=== PATIENT | female | born 2000 | race Caucasian/White ===

== ENCOUNTER 2021-04-30 13:32 | Emergency (ER) | payer OTHER, SELFPAY ==
[2021-04-30 13:44] VITALS: BP 113/74; PULSE 81; RESP 18; TEMP 36.9; O2SAT 99
--- NOTE | 2021-04-30 14:32 | ED.URI ---
HPI - URI/Sore Throat General Chief Complaint: Upper Respiratory Infection Stated Complaint: Congestion, Sinus pressure, Coughing, Sore Throat Time Seen by Provider: 04/30/21 14:33 Source: patient and RN notes reviewed Mode of arrival: ambulatory Limitations: no limitations History of Present Illness HPI Narrative: 20 year old female who presents to [facility] care with complaints of one week duration of productive cough of green mucous, post nasal drainage, left ear pain,head pressure, pain to teeth. Patient has been taking Mucinex,Sudafed, and Nyquil for her symptoms.Patient states that she had a sore throat for one day then it was gone. Patient denies any shortness of breath with respirations even and nonlabored with SAO2 99% on room air.Patient states that she has not had flu or Covid immunizations. MD elicited complaint: cough Onset (ago): week(s) (1) Consistency: progressively worsening Severity: moderate Pain scale (0-10): 6 Description of mucous: green Able to tolerate fluids by mouth: Yes Relieving factors: nothing Treatments prior to arrival: cold medicine and other (Mucinex, Sudafed,Nyquil) Related Data Home Medications Medication Instructions Recorded Confirmed hydroxyzine pamoate 25 mg PO BID PRN 04/30/21 04/30/21 norethindrone-e.estradiol-iron 1 tablet PO DAILY 04/30/21 04/30/21 [11/22 ()] Allergies Allergy/AdvReac Type Severity Reaction Status Date / Time ketorolac [From Toradol] Allergy Nausea and Verified 04/30/21 13:51 Vomiting Review of Systems Review of Systems: Narrative: CONSTITUTIONAL: Denies known fever, chills, or sweats. EYES: Denies visual changes, redness, or discharge. ENT: Positive for post nasal rhinorrhea, congestion,no resent sore throat, positive left ear otalgia. CARDIOVASCULAR: Denies chest pain, palpitations, no edema. RESPIRATORY: Positive cough denies dyspnea. GASTROINTESTINAL: Denies abdominal pain, nausea, vomiting, or diarrhea. GENITOURINARY: Denies dysuria or hematuria. SKIN: Denies rash or itching. MUSCULOSKELETAL: Denies back pain, joint pain, or myalgia. NEUROLOGIC:positive frontal headache, no numbness, or weakness. PSYCHIATRIC: Positive for history of anxiety or depression. All systems reviewed & are unremarkable except as noted in HPI and below PMFSH Past Medical History Medical History (Updated 05/04/21 @ 09:14 by Mehreen Chandler NP) Anxiety GERD (gastroesophageal reflux disease) IBS (irritable bowel syndrome) Surgical History Surgical History (Updated 05/04/21 @ 09:15 by Mehreen Chandler NP) H/O shoulder surgery History of dental surgery History of placement of ear tubes Family History Family History (Updated 05/04/21 @ 09:15 by Mehreen Chandler NP) Other No significant family history Social History Social History (Updated 05/04/21 @ 09:16 by Mehreen Chandler NP) Tobacco type: e-cigarettes/vaping Alcohol intake: current Alcohol use details: social Substance use: never Living arrangements: with family Gender identity (if verbalized by the patient): Female Comments At time of signature, agree with nursing past medical, surgical, social and family history. There is no relevant family history pertinent to the presenting complaint Exam Narrative: Exam Narrative: GENERAL: Well-appearing, well-nourished, and in no acute distress. HEAD: Normocephalic, atraumatic. EYES: PERRLA and EOMI. ENT: Nares red swollen with swollen turbinates, rhinorrhea no epistaxis.Facial pressure and frontal headache pain. Mucous membranes moist.TM's normal with dull light reflex, throat red with no tonsil enlargement exudates or lesions, post nasal drainage present NECK: Supple.no lymphadenopathy CHEST: Clear to auscultation. No respiratory distress.productive cough of green sputum, SAO2 99% on room air HEART: Regular rate and rhythm. No murmur heard. Normal peripheral pulses. ABDOMEN: Soft, nontender, nondistended, normal active rachel
== END 2021-04-30 14:50 | disposition home or self-care (01) ==
PROVIDERS: Emergency Provider Registered Nurse; PCP Physician Assistant
DX: J01.90 Acute sinusitis, unspecified (principal); F17.200 Nicotine dependence, unspecified, uncomplicated; K21.9 Gastro-esophageal reflux disease without esophagitis
CPT/HCPCS: 99213; G0463

== ENCOUNTER 2021-07-04 14:53 | Emergency (ER) | payer OTHER, SELFPAY ==
--- NOTE | 2021-07-04 14:58 | ED.URI ---
HPI - URI/Sore Throat General Chief Complaint: Upper Respiratory Infection Stated Complaint: sinus infection Time Seen by Provider: 07/04/21 15:20 Source: patient and RN notes reviewed Mode of arrival: ambulatory Limitations: no limitations History of Present Illness HPI Narrative: 21-year-old female with history of IBS, GERD, tympanostomy tubes presents with concern for 4-day history of sneezing cough, headache, runny nose, nasal congestion, sore throat, itchy right ear. She denies any [id number] mention. Denies known sick contacts. Has not been vaccinated. She denies shortness of breath, body aches, chills, sweats MD elicited complaint: nasal congestion Related Data Home Medications Medication Instructions Recorded Confirmed hydroxyzine pamoate 25 mg PO BID PRN 04/30/21 07/04/21 norethindrone-e.estradiol-iron 1 tablet PO DAILY 04/30/21 07/04/21 [11/22 (28)] omeprazole 10 mg PO DAILY 07/04/21 07/04/21 Allergies Allergy/AdvReac Type Severity Reaction Status Date / Time ketorolac [From Toradol] Allergy Nausea and Verified 07/04/21 15:09 Vomiting Review of Systems Review of Systems: CONSTITUTIONAL: Denies malaise, chills, sweats, or fever. EYES: Denies visual changes, redness, or discharge. ENT: Reports rhinorrhea, congestion, otalgia and sore throat. CARDIOVASCULAR: Denies chest pain, palpitations, or edema. RESPIRATORY: Reports cough. Denies dyspnea. GASTROINTESTINAL: Denies abdominal pain, nausea, vomiting, diarrhea SKIN: Denies rash or itching. MUSCULOSKELETAL: Denies myalgia. NEUROLOGIC: Denies headache. All systems reviewed & are unremarkable except as noted in HPI and below PMFSH Past Medical History Medical History (Updated 07/04/21 @ 15:26 by Vania Walters NP) Anxiety GERD (gastroesophageal reflux disease) IBS (irritable bowel syndrome) Surgical History Surgical History (Updated 05/04/21 @ 09:15 by Mehreen Chandler NP) H/O shoulder surgery History of dental surgery History of placement of ear tubes Family History Family History (Updated 05/04/21 @ 09:15 by Mehreen Chandler NP) Other No significant family history Social History Social History (Updated 05/04/21 @ 09:16 by Mehreen Chandler NP) Tobacco type: e-cigarettes/vaping Alcohol intake: current Alcohol use details: social Substance use: never Gender identity (if verbalized by the patient): Female Comments At time of signature, agree with nursing past medical, surgical, social and family history. There is no relevant family history pertinent to the presenting complaint Exam Narrative: GENERAL: Well-appearing, well-nourished, and in no acute distress. HEAD: Normocephalic EYES: PERRLA, conjunctivae clear ENT: Nares clear, clear discharge. Mucous membranes moist. TM pearly encinas with sharp light reflex bilaterally; no tragal tenderness. Oropharynx not erythematous without lesions. Tonsils not enlarged and without exudate, no drooling, no hoarseness, no trismus, uvula midline. NECK: Supple. No lymphadenopathy CHEST: Clear to auscultation, breath sounds equal. No wheezing, rhonchi, rales, or stridor. No respiratory distress, speaks in full sentences. HEART: Regular rate and rhythm. No murmur heard. SKIN: Warm, dry, no rash. NEURO: Alert and oriented x3. PSYCH: Normal mood and affect Course Course Emergency Course: Patient is aware of diagnosis, understands and agrees to treatment plan. Anticipatory guidance given. Patient agrees to follow-up as directed and is aware of reasons to seek care at the emergency department. Portions of this record may have been created with voice recognition software Vital Signs Vital signs: Reviewed. MDM - URI/Sore Throat MDM Narrative Medical decision making narrative: Differential diagnosis considered: Diego virus, strep pharyngitis, allergic rhinitis, upper respiratory tract infection, sinusitis, rhinosinusitis, nasopharyngitis. viral pharyngitis, otiti
[2021-07-04 14:59] VITALS: BP 118/77; PULSE 82; RESP 16; TEMP 36.6; O2SAT 98
[2021-07-04 15:10] VITALS: BP 118/77; PULSE 82; RESP 16; TEMP 36.6; O2SAT 98
[2021-07-05 19:18] LABS: SARS-CoV-2 RNA PCR Negative
== END 2021-07-04 15:39 | disposition home or self-care (01) ==
PROVIDERS: Emergency Provider Nurse Practitioner; PCP Physician Assistant
DX: J06.9 Acute upper respiratory infection, unspecified (principal); Z20.822 Contact with and (suspected) exposure to COVID-19; F17.200 Nicotine dependence, unspecified, uncomplicated; K21.9 Gastro-esophageal reflux disease without esophagitis; F41.9 Anxiety disorder, unspecified
CPT/HCPCS: 87081; 87880; 99213; C9803; G0463; U0003; U0005

== ENCOUNTER 2022-04-01 12:04 | Emergency (ER) | payer OTHER, SELFPAY ==
[2022-04-01 12:27] VITALS: PULSE 79; RESP 18; TEMP 36.5; O2SAT 100
--- NOTE | 2022-04-01 13:37 | ED.GENADULT ---
HPI - General Adult General Chief complaint: Upper Respiratory Infection Stated complaint: Congestion/Ear Pain Source: patient Mode of arrival: ambulatory Limitations: no limitations History of Present Illness HPI narrative: Patient presents for evaluation of left-sided ear pain. She decays approximately 6 days ago she developed a sore throat. Symptoms were present for approximately 24 hours and then resolved. She then developed sinus congestion, drainage, productive cough. She states that sinus drainage and sputum are both green in appearance. No fever, chills, nausea, vomiting, diarrhea, body aches. No recent sick contacts. She does vape. She did not receive COVID or influenza vaccines. She took a home COVID test which was negative. She has been taking some OTC meds which have seemed to help. Over the course the last 24 hours the left-sided ear pain has markedly worsened. She denies any tinnitus, hearing loss, drainage from the left ear. Related Data Home Medications Medication Instructions Recorded Confirmed norethindrone 1 mg-ethinyl 1 tablet PO DAILY 04/30/21 04/01/22 estradiol 20 mcg (21)-iron 75 mg (7) tablet (11/22 (28)) Allergies Allergy/AdvReac Type Severity Reaction Status Date / Time ketorolac [From Toradol] Allergy Nausea and Verified 04/01/22 13:32 Vomiting Review of Systems Review of Systems: CONSTITUTIONAL: Denies fever, chills, or sweats. EYES: Denies visual changes, redness, or discharge. ENT: Reports sinus congestion, green discharge from her nares, left-sided otalgia. Ports recent sore throat, now resolved. Denies tinnitus, hearing loss, drainage from the ears CARDIOVASCULAR: Denies chest pain, palpitations, or edema. RESPIRATORY: Reports productive cough of green sputum. Denies SOB. GASTROINTESTINAL: Denies abdominal pain, nausea, vomiting, or diarrhea. GENITOURINARY: Denies dysuria or hematuria. SKIN: Denies rash or itching. MUSCULOSKELETAL: Denies back pain, joint pain, or myalgia. NEUROLOGIC: Denies headache, numbness, dizziness, or weakness. PSYCHIATRIC: Denies anxiety or depression. [facility] Past Medical History Medical History Anxiety GERD (gastroesophageal reflux disease) IBS (irritable bowel syndrome) Surgical History Surgical History H/O shoulder surgery History of dental surgery History of placement of ear tubes Family History Family History Other No significant family history Social History Social History Smoking status: Current every day smoker Tobacco type: e-cigarettes/vaping Alcohol intake: current Alcohol use details: social Substance use: current Substance use type: marijuana Gender identity (if verbalized by the patient): Female Spiritual care concerns: No Exam Narrative: GENERAL: Well-appearing, well-nourished, and in no acute distress. HEAD: Normocephalic, atraumatic. EYES: PERRLA and EOMI. ENT: Nares clear, no rhinorrhea or epistaxis. Mucous membranes moist. Oropharynx without tonsillar hypertrophy exudate or other lesions. Left TM erythema with middle ear fluid and bulging noted NECK: Supple. No adenopathy or masses. No carotid bruits or JVD CHEST: Clear to auscultation. No respiratory distress. No wheezes rales or rhonchi HEART: Regular rate and rhythm. No murmur heard. Normal peripheral pulses. ABDOMEN: Soft, nontender, nondistended, normal active bowel sounds. EXTREMITIES: Normal range of motion. No edema. SKIN: Warm, dry, no rash. NEURO: No focal deficits. Alert and oriented x3. PSYCH: Normal mood and affect. Course Course Emergency Course: This is a 21-year-old female who presented with complaints of left-sided ear pain. She has evidence of otitis media on exam. We
== END 2022-04-01 13:50 | disposition home or self-care (01) ==
PROVIDERS: Emergency Provider Nurse Practitioner
DX: H66.92 Otitis media, unspecified, left ear (principal); F17.290 Nicotine dependence, other tobacco product, uncomplicated; K21.9 Gastro-esophageal reflux disease without esophagitis
CPT/HCPCS: 99213; G0463

== ENCOUNTER 2022-09-01 08:05 | Emergency (ER) | payer OTHER, SELFPAY ==
--- NOTE | 2022-09-01 08:07 | ED.URI ---
HPI - URI/Sore Throat General Stated Complaint: Sinus Congestion Time Seen by Provider: 09/01/22 08:07 Source: patient Mode of arrival: ambulatory Limitations: no limitations Related Data Home Medications Medication Instructions Recorded Confirmed norethindrone 1 mg-ethinyl 1 tablet PO DAILY 04/30/21 04/01/22 estradiol 20 mcg (21)-iron 75 mg (7) tablet (11/22 (28)) Allergies Allergy/AdvReac Type Severity Reaction Status Date / Time ketorolac [From Toradol] Allergy Nausea and Verified 04/01/22 13:32 Vomiting Review of Systems Review of Systems: Pertinent positives per HPI. Patient denies any fever, chills, rash, headache, visual changes, dizziness, cough, shortness of breath, chest pain, palpitations, nausea, vomiting, diarrhea, constipation, abdominal pain, or any urinary issues. [facility] Past Medical History Medical History Anxiety GERD (gastroesophageal reflux disease) IBS (irritable bowel syndrome) Surgical History Surgical History H/O shoulder surgery History of dental surgery History of placement of ear tubes Family History Family History Other No significant family history Social History Social History Smoking status: Current every day smoker Tobacco type: e-cigarettes/vaping Alcohol intake: current Alcohol use details: social Substance use: current Substance use type: marijuana Gender identity (if verbalized by the patient): Female Spiritual care concerns: No Comments At the time of my signature, I reviewed and agree with the nursing past medical, surgical, social, and family history. There is no relevant family history pertinent to the patient complaint. Exam Narrative: General: Well-developed, well nourished, in no apparent distress Head: Normocephalic, atraumatic Eyes: Pupils equally round and reactive to light bilaterally, EOM intact, sclera and conjunctive clear, no discharge, lids normal Ears: TMs intact and clear, ear canals clear, no drainage, grossly hearing normal. Nose: Nares patent, no discharge, no inflammation, no sinus tenderness. Mouth: Oral pharynx without lesions or masses, good dentition, MMM. Neck: Supple, trachea midline, no enlargement of anterior or posterior cervical nodes, no thyroid masses or goiter palpable. Cardio: Regular rate and rhythm, s1 and s2 normal, no murmur appreciated. Resp: Clear to auscultation bilaterally, no rhonchi, rales, wheezing or rubs Course Course Emergency Course: Portions of this record may have been created with voice recognition software. Level of Care: Express Care Visit Vital Signs Vital signs: Vital signs reviewed MDM - URI/Sore Throat MDM Narrative Medical decision making narrative: Discharge Plan Discharge Prescriptions: No Action norethindrone-e.estradiol-iron [11/22 (28)] 1 mg-20 mcg (21)/75 mg (7) Tablet 1 tablet PO DAILY amoxicillin-pot clavulanate 875-125 mg tablet 1 tablet PO Q12H Qty: 20 0RF Follow-up/Referrals: Layne,CHRISTI Mcneill [Primary Care Provider] - Quality NIHSS Nursing Documentation ED NIHSS nursing documentation: reviewed/agree
[2022-09-01 08:12] VITALS: BP 127/72; PULSE 78; RESP 16; TEMP 36; O2SAT 100
--- NOTE | 2022-09-01 08:20 | ED.URI ---
HPI - URI/Sore Throat General Chief Complaint: Upper Respiratory Infection Stated Complaint: Sinus Congestion Time Seen by Provider: 09/01/22 08:07 Source: patient, RN notes reviewed and old records reviewed Mode of arrival: ambulatory Limitations: no limitations History of Present Illness HPI Narrative: 22-year-old female presents to [facility] Care with complaints of sinus pressure left ear pain some green nasal drainage for the past 2 days. Patient states 2 weeks ago she was diagnosed with flu by her primary doctor and was told she had possibly a secondary infection was given a Z-Bryan which she did complete. Patient reports that she felt better for about 8 days and now symptoms have reoccurred. Patient states she has been taking Mucinex and NyQuil with no relief MD elicited complaint: rhinorrhea, nasal congestion, sinus pain and other (Left ear pain) Treatments prior to arrival: other (Mucinex and NyQuil) Related Data Home Medications Medication Instructions Recorded Confirmed buspirone 5 mg tablet 5 mg PO DAILY 09/01/22 09/01/22 norethindrone 1.5 mg-ethinyl 1 tablet PO DAILY 09/01/22 09/01/22 estradiol 30 mcg(21)/iron 75 mg(7) tablet (Junel FE 1.5 (28)) Allergies Allergy/AdvReac Type Severity Reaction Status Date / Time ketorolac [From Toradol] Allergy Nausea and Verified 09/01/22 08:21 Vomiting Review of Systems Review of Systems: CONSTITUTIONAL: Denies malaise, chills, sweats, or fever. EYES: Denies visual changes, redness, or discharge. ENT: Reports rhinorrhea, congestion, sinus pain,left otalgia and scratchy sore throat. CARDIOVASCULAR: Denies chest pain, palpitations, or edema. RESPIRATORY: denies cough.? Denies dyspnea. GASTROINTESTINAL: Denies abdominal pain, nausea, vomiting, diarrhea SKIN: Denies rash or itching. MUSCULOSKELETAL: Denies myalgia. NEUROLOGIC: Denies headache. All systems reviewed & are unremarkable except as noted in HPI and below PMFSH Past Medical History Medical History Anxiety GERD (gastroesophageal reflux disease) IBS (irritable bowel syndrome) Surgical History Surgical History H/O shoulder surgery History of dental surgery History of placement of ear tubes Family History Family History Other No significant family history Social History Social History Smoking status: Current every day smoker Tobacco type: e-cigarettes/vaping Alcohol intake: current Alcohol use details: social Substance use: current Substance use type: marijuana Gender identity (if verbalized by the patient): Female Spiritual care concerns: No Comments At time of signature, agree with nursing past medical, surgical, social and family history. There is no relevant family history pertinent to the presenting complaint Exam Narrative: GENERAL: Well-appearing, well-nourished, and in no acute distress. HEAD: Normocephalic EYES: PERRLA, conjunctivae clear ENT: Nares clear, turbinates edematous and erythematous, clear discharge. Mucous membranes moist. TM pearly encinas with dull light reflex bilaterally; no tragal tenderness. Oropharynx erythematous without lesions. Tonsils not enlarged and without exudate, no drooling, no hoarseness, no trismus, uvula midline.left facial pressure especially with left ear pain. NECK: Supple. No lymphadenopathy CHEST: Clear to auscultation, breath sounds equal. No wheezing, rhonchi, rales, or stridor. No respiratory distress, speaks in full sentences. HEART: Regular rate and rhythm. No murmur heard. SKIN: Warm, dry, no rash. NEURO: Alert and oriented x3. PSYCH: Normal mood and affect Course Course Emergency Course: Patient is aware of diagnosis, understands and agrees to treatment plan.? Anticipa
== END 2022-09-01 08:35 | disposition home or self-care (01) ==
PROVIDERS: Emergency Provider Registered Nurse; PCP Physician Assistant
DX: J32.9 Chronic sinusitis, unspecified (principal); F17.290 Nicotine dependence, other tobacco product, uncomplicated; K21.9 Gastro-esophageal reflux disease without esophagitis; F41.9 Anxiety disorder, unspecified
CPT/HCPCS: 99213; G0463

== ENCOUNTER 2023-05-30 15:49 | Emergency (ER) | payer OTHER, SELFPAY ==
--- NOTE | 2023-05-30 15:55 | ED.EAR ---
HPI - Ear Problem General Chief complaint: Ear Stated complaint: Ear Pain Time Seen by Provider: 05/30/23 16:11 Source: patient and RN notes reviewed Mode of arrival: ambulatory Limitations: no limitations History of Present Illness HPI Narrative: 23-year-old female presents with concern for bilateral ear pain, worse on the right. She reports a popping sound. She denies fever, drainage from the ear. Reports history of ear infections MD Complaint: ear pain Related Data Home Medications Medication Instructions Recorded Confirmed buspirone 5 mg tablet 5 mg PO DAILY 09/01/22 09/01/22 gabapentin 300 mg capsule 600 mg PO HS 05/30/23 05/30/23 norethindrone 1.5 mg-ethinyl 1 tablet PO DAILY 05/30/23 05/30/23 estradiol 30 mcg(21)/iron 75 mg(7) tablet (Fiordaliza Fe 1.5/ (28)) Allergies Allergy/AdvReac Type Severity Reaction Status Date / Time ketorolac [From Toradol] Allergy Nausea and Verified 09/01/22 08:21 Vomiting Review of Systems Review of Systems: CONSTITUTIONAL: Denies malaise, chills, sweats, or fever. EYES: Denies visual changes, redness, or discharge. ENT: Denies rhinorrhea, congestion, sinus pain, and sore throat. Reports bilateral ear pain with popping CARDIOVASCULAR: Denies chest pain, palpitations, or edema. RESPIRATORY: Denies cough. Denies dyspnea. GASTROINTESTINAL: Denies abdominal pain, nausea, vomiting, diarrhea SKIN: Denies rash or itching. MUSCULOSKELETAL: Denies myalgia. NEUROLOGIC: Denies headache. All systems reviewed & are unremarkable except as noted in HPI and below PMFSH Past Medical History Medical History Anxiety GERD (gastroesophageal reflux disease) IBS (irritable bowel syndrome) Surgical History Surgical History H/O shoulder surgery History of dental surgery History of placement of ear tubes Family History Family History Other No significant family history Social History Social History Smoking status: Current every day smoker Tobacco type: e-cigarettes/vaping Alcohol intake: current Alcohol use details: social Substance use: current Substance use type: marijuana Living arrangements: with family Gender identity (if verbalized by the patient): Female Spiritual care concerns: No Comments At time of signature, agree with nursing past medical, surgical, social and family history. There is no relevant family history pertinent to the presenting complaint Exam Narrative: GENERAL: Well-appearing, well-nourished, and in no acute distress. HEAD: Normocephalic EYES: PERRLA, conjunctivae clear ENT: Nares clear. Mucous membranes moist. TM pearly encinas with dull light reflex bilaterally; no tragal tenderness. Oropharynx not erythematous without lesions. Tonsils not enlarged and without exudate, no drooling, no hoarseness, no trismus, uvula midline. NECK: Supple. No lymphadenopathy CHEST: Clear to auscultation, breath sounds equal. No wheezing, rhonchi, rales, or stridor. No respiratory distress, speaks in full sentences. HEART: Regular rate and rhythm. No murmur heard. SKIN: Warm, dry, no rash. NEURO: Alert and oriented x3. PSYCH: Normal mood and affect Course Course Emergency Course: Patient is aware of diagnosis, understands and agrees to treatment plan. Anticipatory guidance given. Patient agrees to follow-up as directed and is aware of reasons to seek care at the emergency department. Portions of this record may have been created with voice recognition software Level of Care: Express Care Visit Vital Signs Vital signs: Reviewed. Medical Decision Making MDM Narrative Medical decision making narrative: Differential diagnosis considered: Diego virus, strep pharyngitis, allergic rhinitis, upper respiratory tract inf
[2023-05-30 15:59] VITALS: BP 120/72; PULSE 86; RESP 16; TEMP 36.5; O2SAT 100
== END 2023-05-30 16:31 | disposition home or self-care (01) ==
PROVIDERS: Emergency Provider Nurse Practitioner; PCP Physician Assistant
DX: H92.03 Otalgia, bilateral (principal); F17.290 Nicotine dependence, other tobacco product, uncomplicated; F12.90 Cannabis use, unspecified, uncomplicated; K21.9 Gastro-esophageal reflux disease without esophagitis; F41.9 Anxiety disorder, unspecified
CPT/HCPCS: 99213; G0463

== ENCOUNTER 2023-08-03 14:15 | Emergency (ER) | payer OTHER, SELFPAY ==
[2023-08-03 14:20] VITALS: BP 127/74; PULSE 81; RESP 16; TEMP 36.9; O2SAT 100
--- NOTE | 2023-08-03 14:36 | ED.GENADULT ---
HPI - General Adult General Stated complaint: chest/back pain History of Present Illness HPI narrative: PATIENT PRESENTS WITH CHEST PAIN THAT RADIATES TO HER LEFT UPPER BACK. PATIENT STATES SHE WAS AT WORK WHEN THE CHEST PAIN STARTED AND IS WORSE WITH MOVEMENT. NO SHORTNESS OF BREATH NO FEVER PATIENT HAS A STRONG FAMILY HISTORY OF CARDIAC PROBLEMS AT A YOUNG AGE. Related Data Home Medications Medication Instructions Recorded Confirmed gabapentin 300 mg capsule 600 mg PO HS 05/30/23 08/03/23 norethindrone 1.5 mg-ethinyl 1 tablet PO DAILY 05/30/23 08/03/23 estradiol 30 mcg(21)/iron 75 mg(7) tablet (Fiordaliza Fe 1.5/30 (28)) Allergies Allergy/AdvReac Type Severity Reaction Status Date / Time ketorolac [From Toradol] Allergy Nausea and Verified 08/03/23 14:25 Vomiting Review of Systems Review of Systems: REVIEW OF SYSTEMS CONSTITUTIONAL: DENIES FEVER, CHILLS, OR SWEATS. EYES: DENIES VISUAL CHANGES, REDNESS, OR DISCHARGE. ENT: DENIES RHINORRHEA, CONGESTION, SORE THROAT, OR OTALGIA. CARDIOVASCULAR: DENIES CHEST PAIN, PALPITATIONS, OR EDEMA. RESPIRATORY: DENIES COUGH OR DYSPNEA. GASTROINTESTINAL: DENIES ABDOMINAL PAIN, NAUSEA, VOMITING, OR DIARRHEA. GENITOURINARY: DENIES DYSURIA OR HEMATURIA. SKIN: DENIES RASH OR ITCHING. MUSCULOSKELETAL: DENIES BACK PAIN, JOINT PAIN, OR MYALGIA. NEUROLOGIC: DENIES HEADACHE, NUMBNESS, OR WEAKNESS. PSYCHIATRIC: DENIES ANXIETY OR DEPRESSION. [facility] Past Medical History Medical History Anxiety GERD (gastroesophageal reflux disease) IBS (irritable bowel syndrome) Surgical History Surgical History H/O shoulder surgery History of dental surgery History of placement of ear tubes Family History Family History Other No significant family history Social History Social History Smoking status: Current every day smoker Tobacco type: e-cigarettes/vaping Alcohol intake: current Alcohol use details: social Substance use: current Substance use type: marijuana Living arrangements: with family Gender identity (if verbalized by the patient): Female Spiritual care concerns: No Comments AT TIME OF SIGNATURE, AGREE WITH NURSING PAST MEDICAL, SURGICAL, SOCIAL AND FAMILY HISTORY. THERE IS NO RELEVANT FAMILY HISTORY PERTINENT TO THE PRESENTING COMPLAINT Exam Narrative: GENERAL: WELL-APPEARING, WELL-NOURISHED, AND IN NO ACUTE DISTRESS. HEAD: NORMOCEPHALIC, ATRAUMATIC. EYES: PERRLA AND EOMI. ENT: NARES CLEAR, NO RHINORRHEA OR EPISTAXIS. MUCOUS MEMBRANES MOIST. NECK: SUPPLE. CHEST: CLEAR TO AUSCULTATION. NO RESPIRATORY DISTRESS. HEART: REGULAR RATE AND RHYTHM. NO MURMUR HEARD. NORMAL PERIPHERAL PULSES. ABDOMEN: SOFT, NONTENDER, NONDISTENDED, NORMAL ACTIVE BOWEL SOUNDS. EXTREMITIES: NORMAL RANGE OF MOTION. NO EDEMA. SKIN: WARM, DRY, NO RASH. NEURO: NO FOCAL DEFICITS. ALERT AND ORIENTED X3. ROBERT COMA SCALE EYE OPENING: SPONTANEOUS 4 ROBERT COMA SCALE MOTOR: OBEYS COMMANDS 6 ROBERT COMA SCALE VERBAL: ORIENTED 5 ROBERT COMA SCALE TOTAL 15 Course Course Level of Care: Express Care Visit Vital Signs Vital signs: Vital Signs Temperature 36.9 C 08/03/23 14:20 Pulse Rate 81 08/03/23 14:20 Respiratory Rate 16 08/03/23 14:20 Blood Pressure 127/74 08/03/23 14:20 Pulse Oximetry 100 08/03/23 14:20 Oxygen Delivery Room Air 08/03/23 14:20 Temperature 36.9 C 08/03/23 14:20 Pulse Rate 81 08/03/23 14:20 Respiratory Rate 16 08/03/23 14:20 Blood Pressure 127/74 08/03/23 14:20 Pulse Oximetry 100 08/03/23 14:20 Oxygen Delivery Room Air 08/03/23 14:20 Transfer Transfered to: [facility] ([place]) Transportation: Other (PATIENT REQUESTING GO BY PRIVATE VEHICLE TO [facility]
--- NOTE | 2023-08-03 14:39 | ECG_ITS ---
Measurements Intervals [place] Rate: 84 P: 48 KS: 144 QRS: 44 QRSD: 100 T: 8 QT: 397 QTc: 470 Interpretive Statements SINUS RHYTHM NORMAL ELECTROCARDIOGRAM NO PREVIOUS ECG AVAILABLE FOR COMPARISON Electronically Signed On 08-04-2023 13:25:00 CDT by Gregory Banerjee M.D.
== END 2023-08-03 14:35 | disposition short-term general hospital (02) ==
PROVIDERS: Emergency Provider Nurse Practitioner Family; PCP Physician Assistant
DX: R07.9 Chest pain, unspecified (principal); M54.9 Dorsalgia, unspecified; F17.219 Nicotine dependence, cigarettes, with unspecified nicotine-induced disorders; Z79.899 Other long term (current) drug therapy
CPT/HCPCS: 93005; 99213; G0463

== ENCOUNTER 2023-11-23 11:13 | Emergency (ER) | payer OTHER, SELFPAY ==
[2023-11-23 11:24] VITALS: BP 121/66; PULSE 79; RESP 16; TEMP 36.4; O2SAT 99
--- NOTE | 2023-11-23 11:32 | ED.URI ---
HPI - URI/Sore Throat General Stated Complaint: Congestion/Cough/Chest Congestion History of Present Illness HPI Narrative: Patient presents with nasal congestion and cough. Patient denies any shortness of breath no chest pain. Patient states she smokes and does vape. Patient took NyQuil 1 time for symptoms otherwise she has not taking anything [id number] for her symptoms. No concern for COVID-19 or influenza at this time. Patient does request a work note states she missed work today due to her cough. Related Data Home Medications Medication Instructions Recorded Confirmed gabapentin 300 mg capsule 600 mg PO HS 05/30/23 11/23/23 Allergies Allergy/AdvReac Type Severity Reaction Status Date / Time ketorolac [From Toradol] Allergy Nausea and Verified 11/23/23 11:31 Vomiting Review of Systems Review of Systems: CONSTITUTIONAL: Denies chills, or sweats. Reports fever and generalized body aches EYES: Denies visual changes, redness, or discharge. ENT: Denies otalgia. Reports nasal congestion runny nose and sore throat CARDIOVASCULAR: Denies chest pain, palpitations, or edema. RESPIRATORY: Denies dyspnea. Reports occasional cough GASTROINTESTINAL: Denies abdominal pain, nausea, vomiting, or diarrhea. GENITOURINARY: Denies dysuria or hematuria. SKIN: Denies rash or itching. MUSCULOSKELETAL: Denies back pain, joint pain, or myalgia. Reports generalized body aches NEUROLOGIC: Denies headache, numbness, or weakness. PSYCHIATRIC: Denies anxiety or depression. [facility] Past Medical History Medical History Anxiety GERD (gastroesophageal reflux disease) IBS (irritable bowel syndrome) Surgical History Surgical History H/O shoulder surgery History of dental surgery History of placement of ear tubes Family History Family History Other No significant family history Social History Social History Smoking status: Current every day smoker Tobacco type: e-cigarettes/vaping Alcohol intake: current Alcohol use details: social Substance use: current Substance use type: marijuana Living arrangements: with family Gender identity (if verbalized by the patient): Female Spiritual care concerns: No Comments At time of signature, agree with nursing past medical, surgical, social and family history. There is no relevant family history pertinent to the presenting complaint Exam Narrative: The patient is a well-developed, well-nourished in no acute distress. SKIN: Skin is warm and dry without erythema, swelling or exudate. There is good turgor. No tenting. HEAD: Atraumatic. Normocephalic. No temporal or scalp tenderness. EYES: Moist and bright. Sclera and conjunctivae normal. No discharge. PERRLA. Extraocular motions intact. Gross visual acuity intact. EARS: Pinna is normal shape and contour. Clear external auditory canals. TM pearly flores with good cone of light, no erythema or suppuration. Bilateral cerumen noted no gross hearing deficit. NOSE: pink, moist mucosa with good air movement. Clear rhinorrhea without nasal flaring. Septum midline. Mouth: moist mucous membranes. THROAT; mild erythema noted to posterior oropharynx with moderate postnasal drainage. Without exudate or ulceration.. Uvula midline. Normal movement of soft palate. NECK: Supple and nontender with full range of motion without discomfort. No meningeal signs. LUNGS: Equal and bilateral breath sounds without wheezes, rales or rhonchi. CHEST: The chest wall is without retractions or use of accessory muscles. HEART: Has a regular rate and rhythm without murmur, gallops, click or rub. ABDOMEN: Soft, nontender with positive active bowel sounds. No rebound tenderness. EXTREMITIES: Without cyanosis, clubbing or e
== END 2023-11-23 11:40 | disposition home or self-care (01) ==
PROVIDERS: Emergency Provider Nurse Practitioner Family; PCP Physician Assistant
DX: J40 Bronchitis, not specified as acute or chronic (principal); F17.290 Nicotine dependence, other tobacco product, uncomplicated; F12.90 Cannabis use, unspecified, uncomplicated; K21.9 Gastro-esophageal reflux disease without esophagitis
CPT/HCPCS: 99213; G0463

== ENCOUNTER 2023-12-24 18:40 | Emergency (ER) | payer OTHER, SELFPAY ==
--- NOTE | 2023-12-24 18:44 | ED.URI ---
HPI - URI/Sore Throat General Chief Complaint: Upper Respiratory Infection Stated Complaint: Congestion/Can't Smell or Taste Source: patient and RN notes reviewed Mode of arrival: ambulatory Limitations: no limitations History of Present Illness HPI Narrative: Patient is a 23-year-old female who presents to the [facility] with complaints of nasal congestion for the past few days. Patient also states that she lost the ability to smell or taste. She reports infrequent nonproductive cough. Reports low-grade fevers. Patient states that she has been exposed to COVID and influenza recently. Her respirations are unlabored. She denies chest pain or shortness of breath. Denies abdominal pain, nausea, vomiting, diarrhea. Patient also reports right ear pain. She denies ear drainage. Related Data Home Medications Medication Instructions Recorded Confirmed gabapentin 300 mg capsule 600 mg PO HS 05/30/23 11/23/23 Allergies Allergy/AdvReac Type Severity Reaction Status Date / Time ketorolac [From Toradol] Allergy Nausea and Verified 12/24/23 18:58 Vomiting Review of Systems Review of Systems: CONSTITUTIONAL: Denies fever, chills, or sweats. EYES: Denies visual changes, redness, or discharge. ENT: Reports otalgia but denies sore throat. Reports nasal congestion. CARDIOVASCULAR: Denies chest pain, palpitations, or edema. RESPIRATORY: Reports cough but denies dyspnea. GASTROINTESTINAL: Denies abdominal pain, nausea, vomiting, or diarrhea. GENITOURINARY: Denies dysuria or hematuria. SKIN: Denies rash or itching. MUSCULOSKELETAL: Denies back pain, joint pain, or myalgia. NEUROLOGIC: Reports headache but denies numbness or weakness. Pertinent positives per HPI. [facility] Past Medical History Medical History Anxiety GERD (gastroesophageal reflux disease) IBS (irritable bowel syndrome) Surgical History Surgical History H/O shoulder surgery History of dental surgery History of placement of ear tubes Family History Family History Other No significant family history Social History Social History Smoking status: Current every day smoker Tobacco type: e-cigarettes/vaping Alcohol intake: current Alcohol use details: social Substance use: current Substance use type: marijuana Living arrangements: with family Gender identity (if verbalized by the patient): Female Spiritual care concerns: No Comments At the time of my signature, I reviewed and agree with the nursing past medical, surgical, social, and family history. There is no relevant family history pertinent to the patient complaint. Exam Narrative: GENERAL: This is a well-nourished, well-developed patient, in no apparent distress. HEAD: normocephalic, atraumatic. EYES: Sclera clear/white. Vision is grossly intact. EARS: External ears normal. Left TM normal without perforation. Right TM erythematous and bulging. Hearing grossly intact. NOSE: External nose normal. Moderate congestion. THROAT: Mucous membranes moist, oropharyngeal erythema without exudate or ulceration. NECK: Neck supple, non-tender without lymphadenopathy, masses or thyromegaly. CARDIOVASCULAR: Regular rate and rhythm without murmurs, gallops, or rubs. RESPIRATORY: Clear to auscultation. Breath sounds equal bilaterally. No wheezes, rales, or rhonchi. GASTROINTESTINAL: Abdomen soft, non-tender, nondistended. Bowel sounds are active. No hepato-splenomegaly, or palpable masses. No guarding. SKIN: warm, intact with no suspicious lesions or rash, good texture and turgor. NEURO: awake, alert, and oriented to person, place and time. There were no obvious focal neurologic abnormalities. Course Course Level of Care: Express Care Visit Vital Signs
[2023-12-24 18:53] VITALS: BP 118/70; PULSE 75; RESP 22; TEMP 36.7; O2SAT 100
== END 2023-12-24 19:19 | disposition home or self-care (01) ==
PROVIDERS: Emergency Provider Nurse Practitioner; PCP Physician Assistant
DX: U07.1 COVID-19 (principal); H66.91 Otitis media, unspecified, right ear; F17.290 Nicotine dependence, other tobacco product, uncomplicated; F12.90 Cannabis use, unspecified, uncomplicated; K21.9 Gastro-esophageal reflux disease without esophagitis
CPT/HCPCS: 87426; 87804; 99213; G0463

== ENCOUNTER 2024-11-03 09:59 | Emergency (ER) | payer OTHER, SELFPAY ==
[2024-11-03 10:04] VITALS: BP 112/68; PULSE 66; RESP 18; TEMP 36.8; O2SAT 99
--- NOTE | 2024-11-03 10:50 | ED_ITS ---
HPI - General Adult General Chief complaint: Upper Respiratory Infection Stated complaint: Congestion/Sore Throat/Ear Pain Source: patient Mode of arrival: ambulatory Limitations: no limitations History of Present Illness HPI narrative: Patient presents for evaluation of sick symptoms. Symptom onset 3 days ago. Symptoms include mucopurulent discharge from the nares, sore throat, and left sided otalgia. No fever, chills, nausea, vomiting, diarrhea, cough of SOB. No recent sick contacts to her knowledge. She tried nyquil, which allowed her to get some sleep. Related Data Home Medications ?Medication ?Instructions ?Recorded ?Confirmed ?Last Taken ?Type gabapentin 300 mg capsule 600 mg PO HS 05/30/23 11/23/23 Unknown History Allergies Allergy/AdvReac Type Severity Reaction Status Date / Time ketorolac (From Toradol) Allergy Nausea and Verified 11/03/24 10:14 Vomiting Review of Systems Review of Systems: CONSTITUTIONAL: Denies fever, chills, or sweats. EYES: Denies visual changes, redness, or discharge. ENT: Reports sinus congestion, mucopurulent discharge from the nares, sore throat and left sided otalgia CARDIOVASCULAR: Denies chest pain, palpitations, or edema. RESPIRATORY: Denies cough or dyspnea. GASTROINTESTINAL: Denies abdominal pain, nausea, vomiting, or diarrhea. GENITOURINARY: Denies dysuria or hematuria. SKIN: Denies rash or itching. MUSCULOSKELETAL: Denies back pain, joint pain, or myalgia. NEUROLOGIC: Denies headache, numbness, dizziness, or weakness. PSYCHIATRIC: Denies anxiety or depression. [facility] Past Medical History Medical History Anxiety GERD (gastroesophageal reflux disease) IBS (irritable bowel syndrome) Surgical History Surgical History History of placement of ear tubes H/O shoulder surgery History of dental surgery Family History Family History Other No significant family history Social History Social History Smoking status: Current every day smoker Tobacco type: e-cigarettes/vaping Alcohol intake: current Alcohol use details: social Substance use: current Substance use type: marijuana Living arrangements: with family Gender identity (if verbalized by the patient): Female Spiritual care concerns: No Exam Narrative: GENERAL: Well-appearing, well-nourished, and in no acute distress. HEAD: Normocephalic, atraumatic. EYES: PERRLA and EOMI. ENT: Nares clear, no rhinorrhea or epistaxis. Mucous membranes moist. Oropharynx without tonsillar hypertrophy exudate or other lesions. Left TM is erythematous and bulging. Right TM normal NECK: Supple. No adenopathy or masses. No carotid bruits or JVD CHEST: Clear to auscultation. No respiratory distress. No wheezes rales or rhonchi HEART: Regular rate and rhythm. No murmur heard. Normal peripheral pulses. ABDOMEN: Soft, nontender, nondistended, normal active bowel sounds. EXTREMITIES: Normal range of motion. No edema. SKIN: Warm, dry, no rash. NEURO: No focal deficits. Alert and oriented x3. PSYCH: Normal mood and affect. Course Course Emergency Course: This is a 24-year-old female who presented for evaluation of sick symptoms. She meets criteria for ABRS based upon mucopurulent nature of her discharge. She also has evidence of otitis media. Will treat with Augmentin. Increase hydration. [id number] agents for symptom management. Follow up with primary provider. Go to the ER for worsening symptoms. Patient in agreement with care plan Level of Care: Express Care Visit Vital Signs Vital signs: Vital Signs Temperature 36.8 C 11/03/24 10:04 Pulse Rate 66 11/03/24 10:04 Respiratory Rate 18 11/03/24 10:04 Blood Pressure 112/68 11/03/24 10:04 Pulse Oximetry 99 11/03/24 10:04 Oxygen Delivery Room Air 11/03/24 10:04 Temperature 36.8 C 11/03/24 10:04 Pulse Rate 66 11/03/24 10:04 Respiratory Rate 18 11/03/24 10:04 Blood Pressure 112/68 11/03/24 10:04 Pulse Oximetry 99 11/03/24 10:04 Oxygen Delivery Room Air 11/03/24 10:04 Medical Decision Making Vital Signs Vital Signs: Vital Signs Temperature 36.8 C 11/03/24 10:04 Pulse Rate 66 11/03/24 10:04 Respiratory Rate 18 11/03/24 10:04 Blood Pressure 112/68 11/03/24 10:04 Pulse Oximetry 99 11/03/24 10:04 Oxygen Delivery Room Air 11/03/24 10:04 Temperature 36.8 C 11/03/24 10:04 Pulse Rate 66 11/03/24 10:04 Respiratory Rate 18 11/03/24 10:04 Blood Pressure 112/68 11/03/24 10:04 Pulse Oximetry 99 11/03/24 10:04 Oxygen Delivery Room Air 11/03/24 10:04 Discharge Plan Discharge Clinical Impression: Acute bacterial sinusitis, Otitis media Patient Disposition: Home, Self-Care Condition: Stable Instructions: Antibiotic Form, Sinusitis (ED), Ear Infection (ED) Patient Language: Tanzanian Prescriptions: New amoxicillin-pot clavulanate 875-125 mg tablet 1 tablet PO Q12H Qty: 20 0RF fluconazole 150 mg tablet 150 mg PO ONCE Qty: 1 0RF Rx Instructions: as a single dose No Action gabapentin 300 mg capsule 600 mg PO HS fluticasone propionate [Flonase Allergy Relief] 50 mcg/actuation spray,suspension 2 spray NASAL BID Qty: 9.9 0RF Rx Instructions: administer into each nostril albuterol sulfate 90 mcg/actuation aero powdr breath act w/sensor 2 inh inhalation Q4-6H PRN (Reason: shortness of breath or wheezing) 30 Days Qty: 1 1RF Follow-up/Referrals: Layne,CHRISTI Mcneill [Primary Care Provider] - Stand Alone Forms: Work/School Release IP Time of Disposition: 10:37
--- OUTSIDE RECORDS SUMMARY | 2024-11-10 05:01 | XMS_ITS | Encounter Summary ---
Author Organization [employer] Care Team Providers Care Sed Special Education Teacher Name Role Phone Charito Tillman PAC Primary Care Pro vider Encounter Details Date Type Department Care Team (Latest Contact Info) Description 11/14/2022 Travel Social History Tobacco Use Types Packs/Day Years Used Date Smoking Tobacco: Never Smokeless Tobacco: Never Alcohol Use Standard Drinks/Week Comments Yes 0 (1 standard drink = 0.6 oz pur e alcohol) PHQ-2 Answer Date Recorded Total Score - Questions 1-9 0 07/04 Sexually Active Control Partners Comments Yes Comments Unknown Sex and Gender Information Value Date Recorded Sex Assigned at Not on file Legal Sex Female 11:33 PM CDT Gender Identity Not on file Sexual Orientation Not on file COVID-19 Exposure Response Date Recorded In the last 10 days, have yo u been in contact with someone who was confirmed or suspected to have Coronavirus/COVID-19? No / Unsure 11/14/2022 12:32 PM FINANCIAL SERVICE REPRESENTATIVE documented as of this encounter Plan of Treatment Not on file documented as of this encounter Visit Diagnoses Not on filedocumented in this encounter Care Teams Sed Special Education Teacher Relationship Specialty Start Date End Date Charito Tillman, JYOTSNA [address] [place] [id number] PCP - General Physician Manager Regional 07/17/22 documented as of this encounter
--- OUTSIDE RECORDS SUMMARY | 2024-11-10 05:01 | XMS_ITS | Encounter Summary ---
Author Organization [employer] Care Team Providers Care Mussel Farmer Name Role Phone Charito Tillman PAC Primary Care Pro vider Encounter Details Date Type Department Care Team (Latest Contact Info) Description 08/03/2023 Travel Social History Tobacco Use Types Packs/Day Years Used Date Smoking Tobacco: Never Smokeless Tobacco: Never Alcohol Use Standard Drinks/Week Comments Yes 0 (1 standard drink = 0.6 oz pur e alcohol) PHQ-2 Answer Date Recorded Total Score - Questions 1-9 3 06/2023 Education Answer Date Recorded What is the highest level of school you have completed or the highest degree you have received? Some college, no degree 04/10/2023 Sexually Active Control Partners Comments Yes Comments No Sex and Gender Information Value Date Recorded Sex Assigned at Not on file Legal Sex Female 11:33 PM CDT Gender Identity Not on file Sexual Orientation Not on file COVID-19 Exposure Response Date Recorded In the last 10 days, have yo u been in contact with someone who was confirmed or suspected to have Coronavirus/COVID-19? No / Unsure 08/03/2023 3:33 PM CDT documented as of this encounter Plan of Treatment Not on file documented as of this encounter Visit Diagnoses Not on filedocumented in this encounter Additional Health Concerns Assessment Noted Time PHQ-9 Depression Total Score: 3 04/10/20 23 12:00 PM CDT documented as of this encounter Care Teams Mussel Farmer Relationship Specialty Start Date End Date Charito Tillman, PAC [address] [place] [address] PCP - General Physician Java Groovy Developer 07/17/22 documented as of this encounter
--- OUTSIDE RECORDS SUMMARY | 2024-11-10 05:01 | XMS_ITS | Clinical Summary ---
Author Organization [facility] Address [address] [place] [address] Phone Care Team Providers Care Dredge Pump Operator Name Role Phone Charito Tillman PAC Primary Care Pro vider Allergies Active Allergy Reactions Criticality Noted Date Comments Ketorolac Vomiting Low 05/19/2020 Vomiting blood Vomiting blood Medications cyclobenzaprine (FLEXERIL) 10 MG Tablet TAKE 1 TABLET BY MOUTH TWICE A DAY NEEDED FOR 10 DAYS 07/17/2022 Active gabapentin (NEURONTIN) 300 MG Capsule Take 300 mg by mouth nightly. 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 07/22/2022 Overview (07/22/2022): MANAGER LINUX follows Encounters Date Type Department Care Team Description 11/04/2024 2:00 PM MANAGER OF INTERNAL AUDIT Office Visit [facility] Medical Group - Primary Care Access [address] [address] Charito Tillman, JYOTSNA Ear ache (Primary Dx) Discharge Disposition: Discharged to home or Selfcare 11/04/2024 Travel from Last 3 Months Immunizations Immunization Administration Dates Next Due TDAP Vaccine 04/10/2023 Family History Medical History Relation Name Comments Diabetes Father Cancer Mother Relation Name Status Comments Father Alive Mother Alive Social History Tobacco Use Types Packs/Day Years Used Date Smoking Tobacco: Never Smokeless Tobacco: Never Tobacco Cessation:Counseling Given: No Alcohol Use Standard Drinks/Week Comments Yes 0 (1 standard drink = 0.6 oz pur e alcohol) [facility] Utilities Answer Date Recorded In the past 12 months has th e electric, gas, oil, or water [employer] threatened to shut off services in your home? No 11/04/2024 Social Connection and Isolat ion Panel [NHANES] Answer Date Recorded In a typical week, how many times do you talk on the phone with family, friends, or neighbors? More than three times a week 11/04/2024 How often do you get togethe r with friends or relatives? Once a week 11/04/2024 How often do you attend [facility] or advent services? Patient declined 11/04/2024 Do you belong to any clubs o r organizations such as restorationism groups, unions, fraternal or athletic groups, or school groups? Yes 11/04/2024 How often do you attend meet ings of the clubs or organizations you belong to? More than 4 times per year 11/04/2024 Are you , , di vorced, , never , or living with a partner? 11/04/2024 AUDIT-C Answer Date Recorded Q1: How often do you have a drink containing alc ohol? Monthly or less 11/04/2024 Q2: How many drinks containi ng alcohol do you have on a typical day when you are drinking? 3 or 4 11/04/2024 Q3: How often do you have si x or more drinks on one occasion? Less than monthly 11/04/2024 Overall Financial Resource Strain (CARDIA) Answe r Date Recorded How hard is it for you to pa y for the very basics like food, housing, medical care, and heating? Not very hard 11/04/2024 PHQ-2 Answer Date Recorded Total Score - Questions 1-9 3 06/2023 [facility] - Occupational Stress Questionnaire Answer Date Recorded Do you feel stress - tense, restless, nervous, or anxious, or unable to sleep at night because your mind is troubled all the time - these days? Rather much 11/04/2024 Exercise Vital Sign Answer Date Recorde d On average, how many days pe r week do you engage in moderate to strenuous exercise (like a brisk walk)? 4 days 11/04/2024 On average, how many minutes do you engage in exercise at this level? 70 min 11/04/2024 Hunger Vital Sign Answer Date Recorded Within the past 12 months, y ou worried that your food would run out before you got the money to buy more. Never true 11/04/19 25 Within the past 12 months, t he food you bought just didn't last and you didn't have money to get more. Never true 11/04/2024 PRAPARE - Transportation Answer Date Re corded In the past 12 months, has l ack of transportation kept you from medical appointments or from getting medications? No 12/2024 In the past 12 months, has l ack of transportation kept you from meetings, work, or from getting things needed for daily living? No 11/04/2024 Housing Stability Vital Sign Answer Serg e Recorded In the last 12 months, was t here a time when you were not able to pay the mortgage or rent on time? No 03/03/2024 In the last 12 months, how many places have you lived? 1 03/03/2024 In the last 12 months, was t here a time when you did not have a steady place to sleep or slept in a senior care (including now)? No 03/03/2024 Housing Stability Vital Sign Answer Serg e Recorded In the last 12 months, was t here a time when you were not able to pay the mortgage or rent on time? No 11/04/2024 In the past 12 months, how m any times have you moved where you were living? 0 11/04/2024 At any time in the past 12 m [facility], were you homeless or living in a senior care (including now)? No 11/04/2024 Education Answer Date Recorded What is the highest level of school you have completed or the highest degree you have received? Some college, no degree 04/10/2023 Sexually Active Control Partners Comments Yes Comments No Sex and Gender Information Value Date Recorded Sex Assigned at Not on file Legal Sex Female 11:33 PM CDT Gender Identity Not on file Sexual Orientation Not on file Last Filed Vital Signs Vital Sign Reading Time Taken Comments Blood Pressure 110/80 11/04/2024 1:55 PM MANAGER OF INTERNAL AUDIT Pulse 81 11/04/2024 1:55 PM MANAGER OF INTERNAL AUDIT Temperature 36.4 ??C (97.5 ??F) 11/04/2024 1:55 PM CS T Respiratory Rate 12 11/04/2024 1:55 PM MANAGER OF INTERNAL AUDIT Oxygen Saturation 98% 11/04/2024 1:55 PM MANAGER OF INTERNAL AUDIT Inhaled Oxygen Concentration - - Weight 90.3 kg (199 lb) 03/03/2024 2:03 PM CDT Height 160 cm (5' 3 ) 08/03/2023 3:32 PM CDT Body Mass Index 35.25 08/03/2023 3:32 PM CDT Plan of Treatment Health Maintenance Due Date Last Done Comments Hepatitis C Virus (HCV) Screening 1999 Human Papillomavirus (HPV) Immunization (1 - 3-dose series) 2014 Hepatitis B Immunization (1 of 3 - 19+ 3-dose series) 2018 Influenza Immunization (#1) 2024 SARS-COV-2 Immunization ( - season) 2024 Td Immunization Every 10 Yea rs (Adults With 1 Tdap) 04/10/2033 04/10/2023 Respiratory Syncytial Virus (RSV) Immunization (Adult) (1 - 1-dose 75+ series) 2074 DTaP/Tdap/Td Immunization Discontinued 04/10/2023 Meningococcal Immunization (ACWY) Aged Out No longer eligible based on patient's age to complete this topic Pneumococcal Immunization Combined Aged Out No longer eligible based on patient's age to complete this topic Rotavirus Immunization Aged Out No lo nger eligible based on patient's age to complete this topic Insurance [facility] SHARED underwriting clerk Care Teams Dredge Pump Operator Relationship Specialty Start Date End Date Charito Tillman, JYOTSNA [address] [place] [address] PCP - General Physician Reed Or Wind Instrument Repairer 07/17/22
--- OUTSIDE RECORDS SUMMARY | 2024-11-10 05:01 | XMS_ITS | Encounter Summary ---
Author Organization [facility] Address [address] [facility] [place] [address] Phone Care Team Providers Care C T Tech Name Role Phone Charito Tillman PAC Primary Care Pro vider Reason for Visit * Reason Comments COVID-19 Encounter Details Date Type Department Care Team (Late st Contact Info) Description 01/23/2023 9:00 AM CDT Telemedicine [facility] Medical Group - Internal Medicine - [place] [address] [place] [address] Charito Tillman, [facility] [address] [place] [address] COVID (Primary Dx) Discharge Disposition: Discharged to home or Selfcare Social History Tobacco Use Types Packs/Day Years [...] was confirmed or suspected to have Coronavirus/COVID-19? Unable to assess 01/23/2023 8:47 AM CDT documented as of this encounter Progress Notes * Charito Tillman PAC - 01/23/2023 9:00 AM CDT Patient was assessed via telephone for a duration of 5 minutes. Patient verbally consented for thisservice to be performed and billed.The patient was at home. HPI: Mary Carmen Chen is a 22 y.o. female evaluated today for . Chest congestion Nasal congestion Fever Body aches Chills Sensitive skin Sore throat; mild No sputum Cough No SOB Current Outpatient Medications: ??? busPIRone (BUSPAR) 5 MG Tablet ??? cyclobenzaprine (FLEXERIL) 10 MG Tablet ??? Norethin Mariano-Eth Estrad-FE 1.5-30 MG-MCG Tablet ??? omeprazole (PriLOSEC) 20 MG CAPSULE DELAYED RELEASE The past medical, surgical, family and social histories, and allergies were reviewed and updated asneeded. ROS: See above Plan: ICD-10-CM 1. COVID U07.1 Strep neg Flu neg covid positive D/w pt OTC supportive care Pt to remain at home for 5 days per CDC guidelines F/u in 10 days for school physical Follow Up: Mary Carmen was asked to follow up with JYOTSNA Arndt in 10 day(s). The After Visit Summary is printed and will be mailed to the patient. documented in this encounter Plan of Treatment Not on file documented as of this encounter Visit Diagnoses Diagnosis COVID- Primary documented in this encounter Additional Health Concerns Infection Onset Date Last Indicated Resolved Time Respiratory Rule Out - RPA 01/23/2023 01/23/2023 0 01/23/2023 9:34 AM CDT documented as of this encounter Care Teams C T Tech Relationship Specialty Start Date End Date Charito Tillman PAC [address] [place] [address] PCP - General Physician Hazardous Material Specialist 07/17/22 documented as of this encounter
--- OUTSIDE RECORDS SUMMARY | 2024-11-10 05:01 | XMS_ITS | Encounter Summary ---
Author Organization [facility] Address [address] [place] [address] Phone Care Team Providers Care Wafer Cutter Name Role Phone Charito Tillman PAC Primary Care Pro vider Reason for Visit * Reason Onset Date Comments Advice Only 08/16/2022 Encounter Details Date Type Department Care Team (Late st Contact Info) Description 08/16/2022 Telephone [facility] Medical Group - Internal Medicine - [place] [address] [place] [address] Charito Tillman, [facility] [address] [place] [address] Advice Only Social History Tobacco Use Types Packs/Day Years [...] suspected to have Coronavirus/COVID-19? No / Unsure 08/12/2022 1:07 PM CDT documented as of this encounter Miscellaneous Notes * Telephone Encounter - Franci Prieto - 08/16/2022 9:58 AM CDT Patients is scheduled for an appointment for 08/19/22 but today woke up with 100.4 temp, congested and body aches. Had to call off work, call back # [phone]. Wanted to be seen today but informedpatient of no openings. documented in this encounter Plan of Treatment Not on file documented as of this encounter Visit Diagnoses Not on filedocumented in this encounter Care Teams Wafer Cutter Relationship Specialty Start Date End Date Charito Tillman PAC [address] [place] [address] PCP - General Physician Donor Relations Officer 07/17/22 documented as of this encounter
--- OUTSIDE RECORDS SUMMARY | 2024-11-10 05:01 | XMS_ITS | Encounter Summary ---
Author Organization [employer] Care Team Providers Care Search Marketing Coordinator Name Role Phone Charito Tillman PAC Primary Care Pro vider Encounter Details Date Type Department Care Team (Latest Contact Info) Description 05/23/2023 Travel Social History Tobacco Use Types Packs/Day [...] suspected to have Coronavirus/COVID-19? No / Unsure 05/23/2023 9:24 AM CDT documented as of this encounter Plan of Treatment Not on file documented as of this encounter Visit Diagnoses Not on filedocumented in this encounter Additional Health Concerns Assessment Noted Time PHQ-9 Depression Total Score: 3 04/10/20 23 12:00 PM CDT documented as of this encounter Care Teams Search Marketing Coordinator Relationship Specialty Start Date End Date Charito Tillman, JYOTSNA [address] [place] [address] PCP - General Physician Roving Changer 07/17/22 documented as of this encounter
--- OUTSIDE RECORDS SUMMARY | 2024-11-10 05:01 | XMS_ITS | Encounter Summary ---
Author Organization [employer] Care Team Providers Care Assistant Prosecuting Attorney Name Role Phone Charito Tillman PAC Primary Care Pro vider Encounter Details Date Type Department Care Team (Latest Contact Info) Description 10/10/2022 Travel Social History Tobacco Use Types Packs/Day [...] suspected to have Coronavirus/COVID-19? No / Unsure 10/10/2022 1:10 PM INCLUSION SPECIAL EDUCATION TEACHER documented as of this encounter Plan of Treatment Not on file documented as of this encounter Visit Diagnoses Not on filedocumented in this encounter Care Teams Assistant Prosecuting Attorney Relationship Specialty Start Date End Date Charito Tillman, JYOTSNA [address] [place] [address] PCP - General Physician Site Physician 07/17/22 documented as of this encounter
--- OUTSIDE RECORDS SUMMARY | 2024-11-10 05:01 | XMS_ITS | Encounter Summary ---
Author Organization [employer] Care Team Providers Care Staff Genetic Counselor Name Role Phone Charito Tillman PAC Primary Care Pro vider Encounter Details Date Type Department Care Team (Latest Contact Info) Description 04/19/2023 Travel Social History Tobacco Use Types Packs/Day [...] suspected to have Coronavirus/COVID-19? No / Unsure 04/19/2023 3:01 PM CDT documented as of this encounter Plan of Treatment Not on file documented as of this encounter Visit Diagnoses Not on filedocumented in this encounter Additional Health Concerns Assessment Noted Time PHQ-9 Depression Total Score: 3 04/10/20 23 12:00 PM CDT documented as of this encounter Care Teams Staff Genetic Counselor Relationship Specialty Start Date End Date Charito Tillman, PAC [address] [place] [address] PCP - General Physician Stenographic Court Reporter 07/17/22 documented as of this encounter
--- OUTSIDE RECORDS SUMMARY | 2024-11-10 05:01 | XMS_ITS | Encounter Summary ---
Author Organization [facility] Address [address] [facility] [place] [address] Phone Care Team Providers Care Outreach Educator Name Role Phone Charito Tillman PAC Primary Care Pro vider Reason for Visit * Reason Comments Influenza Encounter Details Date Type Department Care Team (Late st Contact Info) Description 08/19/2022 1:00 PM CDT Telemedicine [facility] Medical Group - Internal Medicine - [place] [address] [place] [id number] Charito Tillman, [facility] [address] [place] [address] Influenza A (Primary Dx) Discharge Disposition: Discharged to home [...] suspected to have Coronavirus/COVID-19? No / Unsure 08/19/2022 12:28 PM CDT documented as of this encounter Progress Notes * Charito Tillman PAC - 08/19/2022 1:00 PM CDT Patient was assessed via telephone for a duration of 10 minutes. Patient verbally consented for this service to be performed and billed.The patient was at home. HPI: Mary Carmen Chen is a 22 y.o. female evaluated today for . Nasal congestion Post nasal drip Sore throat Cough Sputum yellow Sinus pain pressure Sx not improving 5-6 days later Sx since 5-6 No fever for 2 days Pelvic u/s reviewed with patient Pt is seeing LIABILITY CLAIMS MANAGER, GI, and in PT Current Outpatient Medications: ??? azithromycin (ZITHROMAX) 250 MG Tablet ??? busPIRone (BUSPAR) 5 MG Tablet ??? cyclobenzaprine (FLEXERIL) 10 MG Tablet ??? Norethin Mariano-Eth Estrad-FE 1.5-30 MG-MCG Tablet ??? omeprazole (PriLOSEC) 20 MG CAPSULE DELAYED RELEASE The past medical, surgical, family and social histories, and allergies were reviewed and updated asneeded. ROS: See above Plan: ICD-10-CM 1. Influenza A J10.1 Flu A Viral illness Sx not improving Concerned she may have secondary infection Will Rx zpack for likely secondary infection Supportive care d/w pt Pt to f/u with PCP if sx persist D/w pt pelvic u/s Pt to see LIABILITY CLAIMS MANAGER and gastro F/u with me otherwise as planned Follow Up: Mary Carmen was asked to follow up with JYOTSNA Arndt in 5 day(s). PRN The After Visit Summary is printed and will be mailed to the patient. documented in this encounter Plan of Treatment Not on file documented as of this encounter Visit Diagnoses Diagnosis Influenza A- Primary Influenza with other respiratory manifestations documented in this encounter Additional Health Concerns Infection Onset Date Last Indicated Resolved Time COVID - 19 08/19/2022 08/19/2022 08/29/2022 12:1 6 AM CDT Influenza 08/19/2022 08/19/2022 08/26/2022 12:1 6 AM CDT documented as of this encounter Care Teams Outreach Educator Relationship Specialty Start Date End Date Charito Tillman, JYOTSNA [address] [place] [address] PCP - General Physician Nuclear Power Reactor Operator 07/17/22 documented as of this encounter
--- OUTSIDE RECORDS SUMMARY | 2024-11-10 05:01 | XMS_ITS | Encounter Summary ---
Author Organization [facility] Address [address] [place] [address] Phone Care Team Providers Care Laminator Hand Name Role Phone Charito Tillman PAC Primary Care Pro vider Reason for Visit * Reason Comments Tb Test Encounter Details Date Type Department Care Team (Latest Contact Info) Description 04/21/2023 4:10 PM CDT [facility] [place] [address] [place] [id number] Provider, [facility] PPD screening test (Primary Dx) Discharge Disposition: Discharged to home [...] suspected to have Coronavirus/COVID-19? No / Unsure 04/21/2023 4:09 PM CDT documented as of this encounter Progress Notes * Makenna Chaparro RN - 04/21/2023 4:10 PM CDT PPD Reading Note PPD read and results entered in [employer]. Result: 0.0 mm induration. Interpretation: negative Allergic reaction: yes Patient stated that shortly after second PPD was placed ( on 04/19/2023) she noted tingling around injection site and around her mouth. Tingling completely resolved with benadryl. No redness or rash was noted. I did encourage patient to discuss this reaction with her PCP, patient is agreeable. documented in this encounter Plan of Treatment Not on file documented as of this encounter Visit Diagnoses Diagnosis PPD screening test- Primary Screening examination for pulmonary tuberculosis documented in this encounter Additional Health Concerns Assessment Noted Time PHQ-9 Depression Total Score: 3 04/10/20 23 12:00 PM CDT documented as of this encounter Care Teams Laminator Hand Relationship Specialty Start Date End Date Charito Tillman PAC [address] [place] [address] PCP - General Physician Academic Counselor 07/17/22 documented as of this encounter
--- OUTSIDE RECORDS SUMMARY | 2024-11-10 05:01 | XMS_ITS | Encounter Summary ---
Author Organization [employer] Care Team Providers Care Office Clerk Assistant Name Role Phone Charito Tillman PAC Primary Care Pro vider Encounter Details Date Type Department Care Team (Latest Contact Info) Description 04/21/2023 Travel Social History Tobacco Use Types Packs/Day [...] documented as of this encounter Care Teams Office Clerk Assistant Relationship Specialty Start Date End Date Charito Tillman, JYOTSAN [address] [place] [address] PCP - General Physician Mechanical Insulator 07/17/22 documented as of this encounter
--- OUTSIDE RECORDS SUMMARY | 2024-11-10 05:01 | XMS_ITS | Encounter Summary ---
Author Organization [facility] Address [address] [place] [address] Phone Care Team Providers Care Gun Synchronizer Name Role Phone Charito Tillman PAC Primary Care Pro vider Reason for Visit * Reason Onset Date Comments Results 03/10/2024 Encounter Details Date Type Department Care Team (Late st Contact Info) Description 03/10/2024 Telephone [facility] - Internal Medicine - [place] [address] [address] Charito Tillman, [facility] [address] [place] [address] Results Social History Tobacco Use Types Packs/Day Years Used Date Smoking Tobacco: Never Smokeless Tobacco: Never Alcohol Use Standard Drinks/Week Comments Yes 0 (1 standard drink = 0.6 oz pur e alcohol) [facility] Utilities Answer Date Recorded In the past 12 months has Askuity, gas, oil, or water lifeaction games threatened to shut off services in your home? No 03/03/2024 Social Connection and Isolation Panel [NHANES] A nswer Date Recorded In a typical week, how many times do you talk on the phone with family, friends, or neighbors? Three times a week 03/03/2024 How often do you get togethe r with friends or relatives? Once a week 03/03/2024 How often do you attend [facility] or [facility] services? Patient declined 03/03/2024 Do you belong to any clubs o r organizations such as denominational groups, unions, fraternal or athletic groups, or school groups? Patient declined 03/03/2024 How often do you attend meet ings of the clubs or organizations you belong to? Never 03/03/2024 Are you , , di vorced, , never , or living with a partner? 03/03/2024 AUDIT-C Answer Date Recorded Q1: How often do you have a drink containing alc ohol? Monthly or less 03/03/2024 Q2: How many drinks containi ng alcohol do you have on a typical day when you are drinking? 3 or 4 03/03/2024 Q3: How often do you have si x or more drinks on one occasion? Less than monthly 03/03/2024 Overall Financial Resource Strain (CARDIA) Answe r Date Recorded How hard is it for you to pa y for the very basics like food, housing, medical care, and heating? Not very hard 03/03/2024 PHQ-2 Answer Date Recorded Total Score - Questions 1-9 3 06/2023 [facility] - Occupational Stress Questionnaire Answer Date Recorded Do you feel stress - tense, restless, nervous, or anxious, or unable to sleep at night because your mind is troubled all the time - these days? Very much 03/03/2024 Exercise Vital Sign Answer Date Recorde d On average, how many days pe r week do you engage in moderate to strenuous exercise (like a brisk walk)? 3 days 03/03/2024 On average, how many minutes do you engage in exercise at this level? 150+ min 03/03/2024 Hunger Vital Sign Answer Date Recorded Within the past 12 months, y ou worried that your food would run out before you got the money to buy more. Never true 03/03/20 24 Within the past 12 months, t he food you bought just didn't last and you didn't have money to get more. Never true 03/03/2024 PRAPARE - Transportation Answer Date Re corded In the past 12 months, has l ack of transportation kept you from medical appointments or from getting medications? No 11/2023 In the past 12 months, has l ack of transportation kept you from meetings, work, or from getting things needed for daily living? No 03/03/2024 Housing Stability Vital Sign Answer [...] place to sleep or slept in a mcc (including now)? No 03/03/2024 Education Answer Date Recorded What is the highest level of school you have completed or the highest degree you have received? Some college, no degree 04/10/2023 Sexually Active Control Partners Comments Yes Comments No Sex and Gender Information Value Date Recorded Sex Assigned at Not on file Legal Sex Female 11:33 PM CDT Gender Identity Not on file Sexual Orientation Not on file documented as of this encounter Miscellaneous Notes * Telephone Encounter - Vania Gutierrez RN - 03/10/2024 12:47 PM CDT Pt aware and verbalizes understanding * Telephone Encounter - Vania Gutierrez RN - 03/10/2024 12:46 PM CDT ----- Message from JYOTSNA Arndt sent at 03/09/2024 9:35 AM CDT ----- One liver enzyme elevated Mild hyperlipids Assure eating healthy, weight loss, low fat, low cholesterol foods Repeat CMP in 8 weeks to re check liver enzymes Likely of no significance * Telephone Encounter - Lena Erazo - 03/10/2024 12:16 PM CDT Lab results Mary Carmen is requesting her lab results. Phone - [phone] documented in this encounter Plan of Treatment Scheduled Orders Name Type Priority Associated Diagnoses Orde r Schedule CMP (COMPREHENSIVE METABOLIC PANEL) Lab Routine Elevated liver enzymes Expected: 04/10/2024 (Approximate), Expires: 03/10/2025 documented as of this encounter Visit Diagnoses Diagnosis Elevated liver enzymes- Primary Nonspecific elevation of levels of transaminase or lactic acid dehydrogenase (LDH) documented in this encounter Additional Health Concerns Assessment Noted Time PHQ-9 Depression Total Score: 3 04/10/20 23 12:00 PM CDT documented as of this encounter Care Teams Gun Synchronizer Relationship Specialty Start Date End Date Charito Tillman, JYOTSNA [address] [place] [address] PCP - General Physician Snow Blower 07/17/22 documented as of this encounter
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
--- OUTSIDE RECORDS SUMMARY | 2024-11-10 05:01 | XMS_ITS | Encounter Summary ---
Author Organization [facility] Care Team Providers Care Nip Wrapper Name Role Phone Charito Tillman PAC Primary Care Pro vider Encounter Details Date Type Department Care Team (Latest Contact Info) Description 08/05/2022 Travel Social History Tobacco Use Types Packs/Day [...] suspected to have Coronavirus/COVID-19? No / Unsure 08/05/2022 9:35 AM CDT documented as of this encounter Plan of Treatment Not on file documented as of this encounter Visit Diagnoses Not on filedocumented in this encounter Care Teams Nip Wrapper Relationship Specialty Start Date End Date Charito Tillman PAC [address] [place] [address] PCP - General Physician Supervising Chef 07/17/22 documented as of this encounter
--- OUTSIDE RECORDS SUMMARY | 2024-11-10 05:01 | XMS_ITS | Encounter Summary ---
Author Organization [facility] Address [address] [place] [place] [address] Phone Care Team Providers Care Hha Name Role Phone Charito Tillman Primary Care Pro vider Reason for Referral * PT/OT/ST (Routine) - Canceled Specialty Diagnoses / Procedures Referred By Yeny celeste Referred To Contact Rehabilitation Diagnoses Right shoulder pain, unspecified chronicity Charito Tillman PAC [address] [place] [address] Phone: tel: fax: [facility] at [address] [address] Phone: tel: fax: Referral ID Status Reason Start Date Expiration Date V isits Requested Visits Authorized [id number] Canceled 05/23/2023 1 1 Scheduling Instructions Mary Carmen is being referred for RIGHT shoulder pain Please contact patient for scheduling questions or concerns. * Radiology Services (Routine) - Closed Specialty Diagnoses / Procedures Referred By Yeny celeste Referred To Contact Radiology Diagnoses Right shoulder pain, unspecified chronicity Procedures XR SHOULDER COMPLETE RIGHT Charito Tillman PAC [address] [place] [address] Phone: tel: fax: Referral ID Status Reason Start Date Expiration Date Visits Re quested Visits Authorized [id number] Closed 05/23/2023 1 1 Reason for Visit * Reason Comments Back Pain Pain between shoulde r blades more on right side goes into collar bone little over a week , no known injury Encounter Details Date Type Department Care Team (Late st Contact Info) Description 05/23/2023 9:30 AM CDT Office Visit [facility] Group - Internal Medicine - [place] [address] [place] [id number] Charito Tillman PAC [address] [address] Right shoulder pain, unspecified chronicity (Primary Dx) Discharge Disposition: Discharged to home [...] AM CDT documented as of this encounter Last Filed Vital Signs Vital Sign Reading Time Taken Comments Blood Pressure 110/76 05/23/2023 9:34 AM CDT Pulse 67 05/23/2023 9:34 AM CDT Temperature 36.3 ??C (97.3 ??F) 05/23/2023 9:34 AM CD T Respiratory Rate 12 05/23/2023 9:34 AM CDT Oxygen Saturation 100% 05/23/2023 9:34 AM CDT Inhaled Oxygen Concentration - - Weight 89.8 kg (198 lb) 05/23/2023 9:34 AM CDT Height 160 cm (5' 3 ) 05/23/2023 9:34 AM CDT Body Mass Index 35.07 05/23/2023 9:34 AM CDT documented in this encounter Progress Notes * Sabina Díaz RMA - 05/23/2023 9:30 AM CDT Mary Carmen Chen is a 22 y.o. female with current BMI: There is no height or weight on file to calculateBMI. Interventions discussed including: encourage daily physical activity and well- balanced diet. * Sabina Díaz RMA - 05/23/2023 9:30 AM CDT Mary Carmen Chen, 22 y.o., female is here for Back Pain (Pain between shoulder blades more on right sidegoes into collar bone ) Medication Refills: Patient reports/denies need for medication refills. Orders Pended: no Requested Prescriptions No prescriptions requested or ordered in this encounter Home Medications Medication Sig Start Date End Date Taking? Authorizing Provider busPIRone (BUSPAR) 5 MG Tablet Take 1 Tablet by mouth 2 times daily. Patient not taking: Reported on 04/10/2023 08/14/22 Charito Tillman, JYOTSNA cyclobenzaprine (FLEXERIL) 10 MG Tablet TAKE 1 TABLET BY MOUTH TWICE A DAY NEEDED FOR 10 DAYS 07/17/22 Yes Ashwin Flores MD Norethin Mariano-Eth Estrad-FE 1.5-30 MG-MCG Tablet Take 1 Tablet by mouth daily. 08/07/20 Yes Ashwin Flores MD omeprazole (PriLOSEC) 20 MG CAPSULE DELAYED RELEASE Take 20 mg by mouth daily. Patient not taking: Reported on 04/10/2023 08/10/20 Ashwin Flores MD There are no discontinued medications. I have reviewed the home medication list with the patient and have reconciled discrepancies. The list is accurate to the best of my knowledge. Smoking Status: Social History Tobacco Use ??? Smoking status: Never ??? Smokeless tobacco: Never Vaping Use ??? Vaping Use: Every day ??? Substances: Nicotine, THC, Flavoring ??? Devices: Disposable Substance Use Topics ??? Alcohol use: Yes ??? Drug use: Yes Types: Marijuana Smoking Cessation Counseling Given: no Health Care Maintenance: Health Maintenance Due Topic Date Due ??? Hepatitis B Immunization (1 of 3 - 3-dose series) Never done ??? Hepatitis C Virus (HCV) Screening Never done ??? SARS-COV-2 Immunization (1) Never done ??? Meningococcal B Immunization (1 of 2 - Risk Bexsero 2-dose series) Never done ??? Human Papillomavirus (HPV) Immunization (1 - 2-dose series) Never done ??? Pap Smear Never done ??? DTaP/Tdap/Td Immunization (2 - Td or Tdap) 05/08/2023 Orders Pended: no The following BPA's have been addressed with the patient today: BMI and TDAP * Charito Tillman PAC - 05/23/2023 9:30 AM CDT Chief Complaint: Chief Complaint Patient presents with ??? Back Pain Pain between shoulder blades more on right side goes into collar bone little over a week , no knowninjury Assessment/Plan: Diagnoses and all orders for this visit: Right shoulder pain, unspecified chronicity - XR SHOULDER COMPLETE RIGHT; Future - PHYSICAL THERAPY REFERRAL; Future Other orders - tiZANidine HCl 4 MG Capsule - gabapentin (NEURONTIN) 300 MG Capsule; Take 300 mg by mouth nightly. - methylPREDNISolone (MEDROL DOSPACK) 4 MG Tablet Therapy Pack; Follow instructions on pack, take with food; Give one pack Xray R shoulder MDP PT eval and treat Cont mm relaxers from ER Add MDP as noted above F/u 4 wks if sx persist Subjective: Ms. Mary Carmen Chen is a 22 y.o. female here today for above. R shoulder pain R posterior shoulder blade pain No injury Does lift heavy things at work No other c/o Sx for 5-7 days ROS: Review of Systems Musculoskeletal: R shoulder pain Rshoulder blade pain No neck pain VITAL SIGNS: BP Readings from Last 3 Encounters: 05/23/23 110/76 04/10/23 118/70 07/22/22 108/80 Wt Readings from Last 3 Encounters: 05/23/23 198 lb (89.8 kg) 04/10/23 193 lb (87.5 kg) 07/22/22 198 lb 3.2 oz (89.9 kg) Vitals: 05/23/23 0934 BP: 110/76 BP Location: Left Arm BP Position: Sitting BP Cuff Size: Regular Pulse: 67 Resp: 12 Temp: 97.3 ??F (36.3 ??C) TempSrc: Temporal SpO2: 100% Weight: 198 lb (89.8 kg) Height: 5' 3 (1.6 m) Body mass index is 35.07 kg/m??. PHYSICAL EXAM: Physical Exam Vitals reviewed. Constitutional: Appearance: Normal appearance. HENT: Head: Normocephalic. Musculoskeletal: General: No swelling, tenderness, deformity or signs of injury. Normal range of motion. Cervical back: Neck supple. No rigidity or tenderness. Right lower leg: No edema. Left lower leg: No edema. Comments: Mild palpable tenderness into the RIGHT shoulder blade Neurological: Mental Status: She is alert. Labs/Studies Reviewed: No results found for: WBC, HEMOGLOBIN, HEMATOCRIT, PLATELETCNT, MCV No results found for: SODIUM, POTASSIUM, CHLORIDE, CO2VEN, ANIONGAP, GLUCOSE, BUN, CREATININE, BCRATIO8, TOTALPROTEIN, ALBUMIN, AGRATIO, CALCIUM, TBIL, SGOTAST, SGPTALT, ALKALINEPHO, GFRNA, GFRA No results found for: TSH No results found for: HGBA1C No results found for: CHOLESTEROL, TRIGLYCRIDES, HDLCHOLESTE, LDL No results found for: PSASCREEN, PSA, PSAFREE, PSAPCNTFREE, PSATOTAL @MAMMOFINDINGS@ No results found. Recent Procedure Details No resulted procedures found. FOLLOWUP: Follow-up Information Return in about 4 weeks (around 06/20/2023) for Acute symptom check. LOS Today OFFICE/OP EST LVL 3 LOW MDM/20-29 MIN Past medical, surgical, social and family history has been reviewed and updated as necessary. Medications and allergies has been reviewed and updated. I discussed all new medications and potential side effects or risks associated with them. Patient is to contact our office with any concerns. Patient instructions and educational materials were given to the patient. Patient (or patient loan representative) demonstrates verbal understanding of instructions given. Patient should follow up with their PCP for general health maintenance needs. Patient should contact our office if their problems persist or call 911/go the to ER if issues become more persistent. If any referrals have been made, patient should contact our office with in 3-5 days if they have not heard anything from our referral team or the referring physician. documented in this encounter Plan of Treatment Scheduled Orders Name Type Priority Associated Diagnoses Orde r Schedule XR SHOULDER COMPLETE RIGHT Imaging Routine Right shoulder pain, unspecified chronicity Expected: 08/25/2023, Expires: 12/03/2023 Scheduled Referrals Name Type Priority Associated Diagnoses Orde r Schedule PHYSICAL THERAPY REFERRAL Outpatient Referral Routine Right shoulder pain, unspecified chronicity Expected: 11/01/2024, Expires: 01/31/2025 documented as of this encounter Visit Diagnoses Diagnosis Right shoulder pain, unspecified chronicity- Primary documented in this encounter Additional Health Concerns Assessment Noted Time PHQ-9 Depression Total Score: 3 04/10/20 23 12:00 PM CDT documented as of this encounter Care Teams Hha Relationship Specialty Start Date End Date Charito Tillman PAC [address] [place] [address] PCP - General Physician Teenage Babysitter 07/17/22 documented as of this encounter
--- OUTSIDE RECORDS SUMMARY | 2024-11-10 05:01 | XMS_ITS | Encounter Summary ---
Author Organization [facility] Care Team Providers Care Animation Producer Name Role Phone Charito Tillman PAC Primary Care Pro vider Encounter Details Date Type Department Care Team (Latest Contact Info) Description 08/19/2022 Travel Social History Tobacco Use Types Packs/Day [...] filedocumented in this encounter Additional Health Concerns Infection Onset Date Last Indicated Resolved Time COVID - 19 08/19/2022 08/19/2022 08/29/2022 12:1 6 AM CDT Influenza 08/19/2022 08/19/2022 08/26/2022 12:1 6 AM CDT documented as of this encounter Care Teams Animation Producer Relationship Specialty Start Date End Date Charito Tillman PAC [address] [place] [address] PCP - General Physician Sketch Maker 07/17/22 documented as of this encounter
--- OUTSIDE RECORDS SUMMARY | 2024-11-10 05:01 | XMS_ITS | Encounter Summary ---
Author Organization [facility] Care Team Providers Care Rn Pool Name Role Phone Charito Tillman PAC Primary Care Pro vider Encounter Details Date Type Department Care Team (Latest Contact Info) Description 08/12/2022 Travel Social History Tobacco Use Types Packs/Day [...] on filedocumented in this encounter Care Teams Rn Pool Relationship Specialty Start Date End Date Charito Tillman PAC [address] [place] [address] PCP - General Physician Speech Language Specialist 07/17/22 documented as of this encounter
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
--- OUTSIDE RECORDS SUMMARY | 2024-11-10 05:01 | XMS_ITS | Encounter Summary ---
Author Organization [facility] Address [address] [place] [address] Phone Care Team Providers Care Social Media Marketing Analyst Name Role Phone Charito Tillman PAC Primary Care Pro vider Reason for Visit * PT/OT/ST (Routine) - Closed Specialty Diagnoses / Procedures Referred By Yeny t Referred To Contact Rehabilitation Diagnoses Pelvic and perineal pain Zoya Jeffries APRN, COMPOUND WORKER [address] [facility] [address] Phone: tel: fax: [facility] [address], [place] [address] [address] Phone: tel: fax: Referral ID Status Reason Start Date Expiration Date Visits Re quested Visits Authorized [id number] Closed 1 120 Encounter Details Date Type Department Care Team (Late st Contact Info) Description 09/03/2022 3:00 PM CDT Physical Therapy [facility] [address], [place] [address] [place] [address] Zoya Jeffries APRN, COMPOUND WORKER [address] [place] [address] Nitza Bhakta, PT [place] Pelvic pain (Primary [...] suspected to have Coronavirus/COVID-19? No / Unsure 09/03/2022 2:49 PM CDT documented as of this encounter Miscellaneous Notes * Plan of Care - Nitza Bhakta, PT - 09/03/2022 3:00 PM CDT Treatment Note - Electronically signed by: NITZA BHAKTA, PT September 03, 2022 SUBJECTIVE: The patient reports that she went to see a specialist OBGYN and she stated that the scratching sensation and found that the glands were inflamed in her vulva. She was put on nerve medications and believes that it was due to chronic yeast infections. The patient was also educated on things to changehygiene porter as well, including no fragrance and using coconut oil instead of lubrication and use it daily for a general vaginal moisturizer. She reports that she used it yesterday and had pain without sex which is a large improvement. She agreed on the teeth clenching as well and having an increased tone in her pelvic floor. Patient returns in about 6 months to review her improvements. The patient reports that everything else has been mostly good, reporting that she hasn't used her wand this week but did perform her hip strengthening things. The patient reports that she hasn't the intense ERpain again in her abdominal wall, but she is worried that its not fully gone. She reports that urinary stuff has been okay in general, as she hasn't really noticed it. Objective TREATMENT: Refer to PT OP Rehab Therapy Treatment flowsheet for details/minutes. Patient was educated on all previous education, as well as discussed the findings from the providervisit and other ways to improve her overall vulvar hygiene, as well as answered any other questionsthat she may have. Patient brought in her pelvic wand this date, so educated patient on its use andused it during manual therapy this date in order for patient to have better understanding for home use. Patient educated on how often to use them, as well as how often to perform the strengthening exercises. Patient educated that focus would be on the pelvic wand this date, as well as advancing hercore exercises for next visit. Manual: Internal muscle releases to all layers of the pelvic floor, with focus on education and howit should feel to use the pelvic wand at home. Informed consent obtained for internal evaluation and treatment. Discussed with patient evaluation and treatment techniques for internal pelvic floor structures. Patient verbalizes understanding and consent for internal evaluation and treatment. Pt declined to have witness present during time of assessment. Performed with the pelvic wand this date. Access Code: [email or web address] ASSESSMENT: Other Details: Patient demonstrates gradual progress as evidenced by reports of improvements in allareas in general, as she does continue to have increased pain; however it doesn't seem to be as badas previously. She reports that she has changed a lot of hygiene habits based on her provider's recommendations but just started those yesterday, but she did have pain free intercourse. Patient has good understanding of the use of the pelvic wand and plans to start using that at home. Plan for nextvisit is to reassess wand use, as well as advance her core exercises for home and the gym. Patient would benefit from continued skilled interventions, [...] facilitate urination and defecation without straining. Progress rcw 09/03/22 4- Patient to increase voiding to at least 5-6 times per day facilitate participation in work/home activities and allow for full pelvic floor lengthening throughout the day. Progress rcw 09/03/22 5- Patient to be able to verbalize strategies to reduce anxiety and to manage pain during her dailytasks, demonstrating improvement in her daily functions such as work and school. 6- Patient reports pain less than 2/10 during penetration in order to improve her intimacy with herpartner. Progress rcw 09/03/22 7- Improved function as demonstrated by an improved score on the PPIQ to and 2/8 or better. Planned Interventions This patient will likely be seen for the following interventions: Manual Therapy (22531), Therapeutic Exercise (20941), Therapeutic Activities (61205), NeuromuscularRe-education (41850), Self Care/Home Management Training (52197), Gait Training (81329), Patient Education, Home Exercise Program Education, Pelvic [...] the opportunity to work with this individual.. documented in this encounter Plan of Treatment Not on file documented as of this encounter Visit Diagnoses Diagnosis Pelvic pain- Primary Unspecified symptom associated with female genital organs High-tone pelvic floor dysfunction Other specified disorders of female genital organs documented in this encounter Care Teams Social Media Marketing Analyst Relationship Specialty Start Date End Date Charito Tillman PAC [address] [place] [address] PCP - General Physician Diamond Wheel Edger 07/17/22 documented as of this encounter
--- OUTSIDE RECORDS SUMMARY | 2024-11-10 05:01 | XMS_ITS | Encounter Summary ---
Author Organization [facility] Address [address] [place] [address] Phone Care Team Providers Care Zigzag Appliquer Name Role Phone Charito Tillman PAC Primary Care Pro vider Reason for Visit * Reason Comments School/Camp Physical Needs TB test Encounter Details Date Type Department Care Team (Late st Contact Info) Description 04/10/2023 1:00 PM CDT Office Visit [facility] - [place] [address] [place] [address] Charito Tillman, PAC [address] [place] [address] Well adult exam (Primary Dx); Visit for TB skin test; Encounter for immunization Discharge Disposition: Discharged to home or Selfcare [...] Recorded In the last 10 days, have she u been in contact with someone who was confirmed or suspected to have Coronavirus/COVID-19? No / Unsure 08/03/2023 3:33 PM CDT documented as of this encounter Last Filed Vital Signs Vital Sign Reading Time Taken Comments Blood Pressure 118/70 04/10/2023 12:58 PM CDT Pulse 74 04/10/2023 12:58 PM CDT Temperature 36.4 ??C (97.5 ??F) 04/10/2023 12:58 PM C DT Respiratory Rate 12 04/10/2023 12:58 PM CDT Oxygen Saturation 100% 04/10/2023 12:58 PM CDT Inhaled Oxygen Concentration - - Weight 87.5 kg (193 lb) 04/10/2023 12:58 PM CDT Height 160 cm (5' 3 ) 04/10/2023 12:58 PM CDT Body Mass Index 34.19 04/10/2023 12:58 PM CDT documented in this encounter Functional Status * Question Answer Date of Assessment Author Little interest or pleasure in doing things Not at all 04/10/2023 12:00 PM CDT Sabina Díaz RMA Feeling down, depressed, or hopeless Not at all 04/10/2023 12:00 PM CDT Sabina Díaz RMA * Over the past 2 weeks, how often have you been bothered by any of the following problems? Question Answer Date of Assessment Author Patient Health Questionnaire -2 Score 0 04/10/2023 12:00 PM CDT Sabina Díaz RMA documented as of this encounter Progress Notes * Ashley Barragan, RN - 04/10/2023 1:00 PM CDT PPD Placement note Mary Carmen Chen, 22 y.o. female is here today for placement of PPD test Reason for PPD test: school physical Pt taken PPD test before: no Verified in allergy area and with patient that they are not allergic to the products PPD is made of(Phenol or Tween). Yes Is patient taking any oral or IV steroid medication now or have they taken it in the last month? no Has the patient ever received the BCG vaccine?: no Has the patient been in recent contact with anyone known or suspected of having active TB disease?:no Patient's Country of origin?: [place] O: Alert and oriented in NAD. P: PPD placed on 04/10/2023. [facility] (between 04/12/23 at 1:30 and 04/13/23 at 1:00). * Charito Tillman, JYOTSNA - 04/10/2023 1:00 PM CDT Chief Complaint: Chief Complaint Patient presents with ??? School/Camp Physical Needs TB test Assessment/Plan: Diagnoses and all orders for this visit: Well adult exam Visit for TB skin test - tuberculin injection 5 Units - TB INTRADERMAL TEST; Future Encounter for immunization - TDAP VACCINE >7YO IM - TDAP IMMUNIZATION QUESTIONS PPD first step today TDAP today Form completed No acute findings Labs due for preventive care Preventive care d/w pt F/u yearly Subjective: Ms. Mary Carmen Chen is a 22 y.o. female here today for above. Needing form completed for school physical No acute c/o Doing well Medically stable No concerns Needs TB Needs TDAP ROS: Review of Systems All other systems reviewed and are negative. VITAL SIGNS: BP Readings from Last 3 Encounters: 04/10/23 118/70 07/22/22 108/80 Wt Readings from Last 3 Encounters: 04/10/23 193 lb (87.5 kg) 07/22/22 198 lb 3.2 oz (89.9 kg) Vitals: 04/10/23 1258 BP: 118/70 BP Location: Right Arm BP Position: Sitting BP Cuff Size: Regular Pulse: 74 Resp: 12 Temp: 97.5 ??F (36.4 ??C) TempSrc: Temporal SpO2: 100% Weight: 193 lb (87.5 kg) Height: 5' 3 (1.6 m) Body mass index is 34.19 kg/m??. PHYSICAL EXAM: Physical Exam Vitals reviewed. Constitutional: Appearance: Normal appearance. HENT: Head: Normocephalic and atraumatic. Right Ear: Tympanic membrane normal. Left Ear: Tympanic membrane normal. Nose: Nose normal. Mouth/Throat: Mouth: Mucous membranes are moist. Eyes: Extraocular Movements: Extraocular movements intact. Conjunctiva/sclera: Conjunctivae normal. Pupils: Pupils are equal, round, and reactive to light. Cardiovascular: Rate and Rhythm: Regular rhythm. Heart sounds: Normal heart sounds. Pulmonary: Breath sounds: Normal breath sounds. Abdominal: General: Bowel sounds are normal. Palpations: Abdomen is soft. Musculoskeletal: General: Normal range of motion. Cervical back: Neck supple. Skin: General: Skin is warm. Neurological: General: No focal deficit present. Mental Status: She is alert. Psychiatric: Mood and Affect: Mood normal. Labs/Studies Reviewed: No results found for: WBC, HEMOGLOBIN, HEMATOCRIT, PLATELETCNT, MCV No results found for: SODIUM, POTASSIUM, CHLORIDE, CO2VEN, ANIONGAP, GLUCOSE, BUN, CREATININE, BCRATIO8, TOTALPROTEIN, ALBUMIN, AGRATIO, CALCIUM, TBIL, SGOTAST, SGPTALT, ALKALINEPHO, GFRNA, GFRA No results found for: TSH No results found for: HGBA1C No results found for: CHOLESTEROL, TRIGLYCRIDES, HDLCHOLESTE, LDL No results found for: PSASCREEN, PSA, PSAFREE, PSAPCNTFREE, PSATOTALMAMMOFINDINGS@ No results found. Recent Procedure Details No resulted procedures found. FOLLOWUP: Follow-up Information Return for Yearly Preventive Care (EXTENDED VISIT), Follow up with PRIMARY CARE PROVIDER. LOS Today PM EST 18-39 LVL C Past medical, surgical, social and family history has been reviewed and updated as necessary. Medications and allergies has been reviewed and updated. I discussed all new medications and potential side effects or risks associated with them. Patient is to contact our office with any concerns. Patient instructions and educational materials were given to the patient. Patient (or patient off premise service representative) demonstrates verbal understanding of instructions given. [...] the referring physician. documented in this encounter Miscellaneous Notes * Addendum Note - Schilling, Miya J, RMA - 04/10/2023 1:00 PM CDTAddended by: ROSELYN SCHILLING on: 08/11/2023 07:13 AM Modules accepted: Orders documented in this encounter Plan of Treatment Not on file documented as of this encounter Results * TB INTRADERMAL TEST (04/10/2023) TB SKIN TEST 04/10/2023 Charito Tillman PAC POINT OF CARE REJI TINMyra (MANUAL) Final Result documented in this encounter Visit Diagnoses Diagnosis Well adult exam- Primary Routine general medical examination at a health care facility Visit for TB skin test Screening examination for pulmonary tuberculosis Encounter for immunization Need for other specified prophylactic vaccination against single bacterial disease documented in this encounter Administered Medications Inactive Administered Medications - up to 3 most recent administrations Medication Order MAR Action Action Date Dose Rate Site tuberculin injection 5 Units 5 Units, Intradermal, ONCE, 1 dose, On Tila 04/10/23 at 1400, Read test 48-72 hours after intradermal injectionIndications:Visit for TB skin test Given 04/10/2023 1:21 PM CDT 5 Units documented in this encounter Additional Health Concerns Assessment Noted Time PHQ-9 Depression Total Score: 3 04/10/20 23 12:00 PM CDT documented as of this encounter Care Teams Zigzag Appliquer Relationship Specialty Start Date End Date Charito Tillman, PAC [address] [place] [address] PCP - General Physician Levers Lace Machine Operator 07/17/22 documented as of this encounter
--- OUTSIDE RECORDS SUMMARY | 2024-11-10 05:01 | XMS_ITS | Encounter Summary ---
Author Organization [facility] Address [address] [place] [address] Phone Care Team Providers Care Train Operations Supervisor Name Role Phone Tina Tillmanney Colette PAC Primary Care Pro vider Reason for Visit * Reason Onset Date Comments No Show 10/30/2022 2nd [facility] Encounter Details Date Type Department Care Team (Late st Contact Info) Description 10/30/2022 Telephone [facility] at [facility] [address] [place] [address] Nitza Bhakta, PT [place] No Show (2nd NCNS) Social History Tobacco Use Types Packs/Day Years [...] Coronavirus/COVID-19? No / Unsure 10/10/2022 1:10 PM FORMING PROCESS WORKER documented as of this encounter Miscellaneous Notes * Telephone Encounter - Nitza Bhakta, PT - 10/30/2022 2:01 PM FORMING PROCESS WORKER Patient did not show for her appointment this date. Unlike her previous to miss appointment so lefther a message that she needs to call to check in and will be discharged if she missed another appointment. NITZA BHAKTA, PT ING PROCESS WORKER documented in this encounter Plan of Treatment Not on file documented as of this encounter Visit Diagnoses Not on filedocumented in this encounter Care Teams Train Operations Supervisor Relationship Specialty Start Date End Date Charito Tillman, [facility] [address] [place] [address] PCP - General Physician Customer Service Technician 07/17/22 documented as of this encounter
--- OUTSIDE RECORDS SUMMARY | 2024-11-10 05:01 | XMS_ITS | Encounter Summary ---
Author Organization [facility] Care Team Providers Care Closet Builder Name Role Phone Charito Tillman PAC Primary Care Pro vider Encounter Details Date Type Department Care Team (Latest Contact Info) Description 09/09/2022 Travel Social History Tobacco Use Types Packs/Day [...] Coronavirus/COVID-19? No / Unsure 09/09/2022 1:10 PM SOFT TILE SETTER documented as of this encounter Plan of Treatment Not on file documented as of this encounter Visit Diagnoses Not on filedocumented in this encounter Care Teams Closet Builder Relationship Specialty Start Date End Date Charito Tillman, JYOTSNA [address] [place] [address] PCP - General Physician Care Mgr 07/17/22 documented as of this encounter
--- OUTSIDE RECORDS SUMMARY | 2024-11-10 05:01 | XMS_ITS | Encounter Summary ---
Author Organization [facility] Address [address] [place] [address] Phone Care Team Providers Care Die Repairer Stamping Name Role Phone Charito Tillman PAC Primary Care Pro vider Reason for Visit * PT/OT/ST (Routine) - Closed Specialty Diagnoses / Procedures Referred By Yeny t Referred To Contact Rehabilitation Diagnoses Pelvic and perineal pain Zoya Jeffries APRN, MUSIC MINISTRIES DIRECTOR Nishant [facility] [place] [address] Phone: tel: fax: [facility] at [facility] [address], [address] [address] Phone: tel: fax: Referral ID Status Reason Start Date Expiration Date Visits Re quested Visits Authorized [id number] Closed 1 120 Encounter Details Date Type Department Care Team (Late st Contact Info) Description 10/10/2022 1:30 PM MOBILITY ARCHITECT Physical Therapy [facility] at [facility] [address] [place] [address] Zoya Jeffries APRN, MUSIC MINISTRIES [place] [address] Nitza Bhakta, PT [place] Pelvic pain (Primary [...] Coronavirus/COVID-19? No / Unsure 10/10/2022 1:10 PM MOBILITY ARCHITECT documented as of this encounter Miscellaneous Notes * Plan of Care - Nitza Bhakta, PT - 10/10/2022 1:30 PM CST Treatment Note/Reassessment - Electronically signed by: NITZA BHAKTA, PT October 10, 2022 SUBJECTIVE: The patient reports that her dad had surgery so she has been taking care of him, working, and goingto school so she basically hasn't done any exercises or anything for herself in the last several weeks. She reports that twice this week she forgot to take her medication so she had some pain, not really intense, but definitely something there. She reports that she had some rectum pain. She reportsthat when she misses the nerve pain medication, she notices in the scratching feeling returning so she is going to talk to the provider about the medication. She reports that she hasn't had intercourse since her last visit due to the stress in her life. She reports that she hasn't been using the coconut oil or anything neither. The patient reports that she is going pee about 5 times per day, sometimes 6. The patient reports that she was wondering if she had a UTI but the test was negative; however, the provider said that it may not have been accurate, reporting that the pain wasn't the same vaginal pain. She reports that she hasn't taken the antibiotic. The patient reports that she would like to keep coming to therapy, as she is still continuing to have the vaginal pain at times. The patient reports that the last time she had intercourse and she didn't have pain but it is always on and off like this. Objective TREATMENT: Refer to PT OP Rehab Therapy Treatment flowsheet for details/minutes. Education: Patient was educated on all previous education, as well as reviewed her HEP and the importance of getting back into her exercises and using her pelvic wand more regularly as her life calmsdown from her dad's surgery. The patient was educated on the manual therapy techniques performed this date and the general plan to continue therapy secondary to her overall progress but continued pain levels. Access Code: [email or web address] Manual: Internal muscle releases to all layers of the pelvic floor, with focus on education and howit should feel to use the pelvic wand at home (reviewed wand use). Soft tissue work throughout her abdominal cavity, as well as right psoas release. ASSESSMENT: Other Details: Mary Carmen Chen is a 22 y.o. female who presented to therapy secondary to increased pelvic pain. The patient has completed 7 visits. The patient is making overall progress in all areas. She did have a recent set back of not using her wand or doing her exercises secondary to her dad's surgery; however, she plans to get back into all tasks. The patient has made improvements in her pain, but she does continue to deal with some rectal pain, as well as the vaginal scratching pains. She has met some goals with continued work needed in these areas. Plan to continue seeing this patient forskilled therapy to continue her improvements, working toward meeting her goals and resolving her pain. Patient would benefit from continued skilled interventions, [...] maximize therapeuticoutcomes and improve pelvic motor control. Progress rcw 10/10/22 2- Patient to verbalize/demonstrate proper voiding technique to facilitate pelvic floor muscle relaxation with voiding. Progress rcw 10/10/22 3- Patient to demonstrate ability to relax pelvic floor on command to facilitate urination and defecation without straining. MET rcw 10/10/22 4- Patient to increase voiding to at least 5-6 times per day facilitate participation in work/home activities and allow for full pelvic floor lengthening throughout the day. MET rcw 09/16/22 5- Patient to be able to verbalize strategies to reduce anxiety and to manage pain during her dailytasks, demonstrating improvement in her daily functions such as work and school. Progress rcw 10/10/22 6- Patient reports pain less than 2/10 during penetration in order to improve her intimacy with herpartner. Progress rcw 10/10/22 7- Improved function as demonstrated by an improved score on the PPIQ to and 2/8 or better. Planned Interventions This patient will likely be seen for 2x/week and 8 more visits the following interventions: Manual Therapy (57925), Therapeutic Exercise (56592), Therapeutic Activities (94160), NeuromuscularRe-education (92540), Self Care/Home Management Training (29193), Gait Training (68846), Patient Education, Home Exercise Program Education, Pelvic [...] the opportunity to work with this individual.. LITY ARCHITECT documented in this encounter Plan of Treatment Not on file documented as of this encounter Visit Diagnoses Diagnosis Pelvic pain- Primary Unspecified symptom associated with female genital organs High-tone pelvic floor dysfunction Other specified disorders of female genital organs documented in this encounter Care Teams Die Repairer Stamping Relationship Specialty Start Date End Date Charito Tillman PAC [address] [place] [address] PCP - General Physician Fireworks Maker 07/17/22 documented as of this encounter
--- OUTSIDE RECORDS SUMMARY | 2024-11-10 05:01 | XMS_ITS | Encounter Summary ---
Author Organization [facility] Care Team Providers Care Caddie Name Role Phone Charito Tillman PAC Primary Care Pro vider Encounter Details Date Type Department Care Team (Latest Contact Info) Description 11/07/2022 Travel Social History Tobacco Use Types Packs/Day [...] suspected to have Coronavirus/COVID-19? No / Unsure 11/07/2022 12:30 PM TELEVISION SCRIPT WRITER documented as of this encounter Plan of Treatment Not on file documented as of this encounter Visit Diagnoses Not on filedocumented in this encounter Care Teams Caddie Relationship Specialty Start Date End Date Charito Tillman, JYOTSNA [address] [place] [address] PCP - General Physician Fashion Marketer 07/17/22 documented as of this encounter
--- OUTSIDE RECORDS SUMMARY | 2024-11-10 05:01 | XMS_ITS | Encounter Summary ---
Author Organization [facility] Address [address] [place] [address] Phone Care Team Providers Care Energy Trader Name Role Phone Charito Tillmanelle PAC Primary Care Pro vider Encounter Details Date Type Department Care Team (Late st Contact Info) Description 01/23/2023 8:40 AM CDT Lab [facility] - [place] [address] [place] [address] [facility] (Primary Dx); Fever, unspecified fever cause; Body aches Discharge Disposition: Discharged to home or Selfcare [...] as of this encounter Progress Notes * Greg Gutierrez RN - 01/23/2023 8:40 AM CDT Patient education provided on pre-procedural self-quarantine instructions. Patient/parent was directed to come to [facility] for Covid-19 pre-procedural screening. Patient/parent was instructed to stay in the vehicle for testing. Donned appropriate PPE for collection of specimen. Bilateral nasal specimen collected by GREG GUTIERREZ RN patient tolerated well. Patient education provided on pre-procedural self-quarantine instructions. documented in this encounter Plan of Treatment Not on file documented as of this encounter Procedures Procedure Name Priority Date/Time Associated Diagnosis Comments POCT SARS ANTIGEN CRISTIANA/INFLUENZA A & B COMBINATION Routine 01/23/2023 9:00 AM CDT Sore throat Fever, unspecified fever cause Body aches POCT GROUP A STREP SCREEN RAPID Routine 01/23/2023 9:00 AM CDT Sore throat Fever, unspecified fever cause Body aches documented in this encounter Results * (ABNORMAL) POCT SARS ANTIGEN CRISTIANA/INFLUENZA A & B COMBINATION (01/23/2023 9:00 AM CDT) POC SARS ANTIGEN CRISTIANA Positive(A) Negative POC SARS ANTIGEN CRISTIANA CONTROL Clinical Trials Assistant Pass Rapid Influenza A PRESUMPTIVE NEGATIVE FOR THE PRESENCE OF INFLUENZA A ANTIGEN PRESUMPTIVE NEGATIVE FOR THE PRESENCE OF INFLUENZA A ANTIGEN, INDETERMINATE Rapid Influenza B PRESUMPTIVE NEGATIVE FOR THE PRESENCE OF INFLUENZA B ANTIGEN PRESUMPTIVE NEGATIVE FOR THE PRESENCE OF INFLUENZA B ANTIGEN, INDETERMINATE POC INFLUENZA CONTROL Clinical Trials Assistant Pass Swab NASAL STRUCTURE / Unknown 01/23/2023 9:00 AM CDT Charito Tillman PAC POINT OF CARE REJI TING (MANUAL) Final Result * POCT GROUP A STREP SCREEN RAPID (01/23/2023 9:00 AM CDT) POC STREP SCRN Presumptive negative Invalid, Presumptive negative POC STREP SCREEN CONTROL Clinical Trials Assistant Pass 01/23/2023 9:00 AM CDT Charito Tillman PAC POINT OF CARE REJI RUIZ (MANUAL) Final Result documented in this encounter Visit Diagnoses Diagnosis Sore throat- Primary Acute pharyngitis Fever, unspecified fever cause Body aches Generalized pain documented in this encounter Care Teams Energy Trader Relationship Specialty Start Date End Date Charito Tillman, JYOTSNA [address] [place] [address] PCP - General Physician Market Research Analyst 07/17/22 documented as of this encounter
--- OUTSIDE RECORDS SUMMARY | 2024-11-10 05:01 | XMS_ITS | Encounter Summary ---
Author Organization [facility] Address [address] [place] [address] Phone Care Team Providers Care Maintenance Machine Repairer Name Role Phone Charito Tillman PAC Primary Care Pro vider Reason for Visit * PT/OT/ST (Routine) - Closed Specialty Diagnoses / Procedures Referred By Yeny t Referred To Contact Rehabilitation Diagnoses Pelvic and perineal pain Zoya Jeffries APRN, CHEMICAL PATHOLOGIST Nishant [facility] [place] [address] Phone: tel: fax: [facility] at [facility] [address], [address] [address] Phone: tel: fax: Referral ID Status Reason Start Date Expiration Date Visits Re quested Visits Authorized [id number] Closed 1 120 Encounter Details Date Type Department Care Team (Late st Contact Info) Description 11/07/2022 12:45 PM HEALTH COORDINATOR Physical Therapy [facility] [address], [address] [place] [address] Zoya Jeffries APRN, CHEMICAL PATHOLOGIST [place] [address] Nitza Bhakta, PT [place] Pelvic pain (Primary [...] Coronavirus/COVID-19? No / Unsure 11/07/2022 12:30 PM HEALTH COORDINATOR documented as of this encounter Miscellaneous Notes * Plan of Care - Nitza Bhakta, PT - 11/07/2022 12:45 PM CST Treatment Note - Electronically signed by: NITZA BHAKTA, PT November 07, 2022 SUBJECTIVE: The patient reports that she has been good, not having pain in general. She reports that she has been really busy with the holidays and work so she hasn't been good about doing her exercises. Over the past few weeks, she hasn't had any pain. She reports that the diarrhea has gone away, reporting that its really new, as she had some difficulty with bowel movements the other day where it was painful to get out. She also reports that she has had intercourse a few times and continues to get the penetration pain. Objective TREATMENT: Refer to PT OP Rehab Therapy Treatment flowsheet for details/minutes. Education: Patient was educated on all previous education, as well as reviewed her HEP and the importance of getting back into her exercises and using her pelvic wand more regularly from the holidays, in order to really see the most improvements and avoid the pain with intercourse. The patient was educated on the manual therapy techniques performed this date and the general plan to continue therapy secondary to her overall progress but continued pain levels. Access Code: [email or web address] Manual: Internal muscle releases to all layers of the pelvic floor, with focus on education and howit should feel to use the pelvic wand at home (reviewed wand use). Soft tissue work throughout her abdominal cavity, as well as right psoas release. Informed consent obtained for internal evaluation and treatment. Discussed with patient evaluation and treatment techniques for internal pelvic floor structures. Patient verbalizes understanding and consent for internal evaluation and treatment. Pt declined to have witness present during time of assessment. ASSESSMENT: Other Details: The patient is making overall progress in all areas. She did have a recent set back of not using her wand or doing her exercises secondary to the holidays; however, she plans to get back into all tasks today, using her wand, as well as a daily moisturizer for her vulva. The patient has made improvements in her pain, but she does continue to deal with some rectal pain with bowel move ments which are newer, as well as the penetration pain with intercourse. Plan to continue seeing this patient for skilled therapy to continue her improvements, working toward [...] therapeuticoutcomes and improve pelvic motor control. Progress w 10/10/22 2- Patient to verbalize/demonstrate proper voiding technique to facilitate pelvic floor muscle relaxation with voiding. Progress w 10/10/22 3- Patient to demonstrate ability to relax pelvic floor on command to facilitate urination and defecation without straining. MET w 10/10/22 4- Patient to increase voiding to [...] to improve her intimacy with herpartner. Progress w 10/10/22 7- Improved function as demonstrated by an improved score on the PPIQ to 12/32 and 2/8 or better. Planned Interventions This patient will likely be seen for the following interventions: Manual Therapy (89044), Therapeutic Exercise (59184), Therapeutic Activities (48812), NeuromuscularRe-education (63722), Self Care/Home Management Training (62693), Gait Training (92647), Patient Education, Home Exercise Program Education, Pelvic [...] the opportunity to work with this individual.. TH COORDINATOR documented in this encounter Plan of Treatment Not on file documented as of this encounter Visit Diagnoses Diagnosis Pelvic pain- Primary Unspecified symptom associated with female genital organs High-tone pelvic floor dysfunction Other specified disorders of female genital organs documented in this encounter Care Teams Maintenance Machine Repairer Relationship Specialty Start Date End Date Charito Tillman PAC [address] [place] [address] PCP - General Physician Computer Science Professor 07/17/22 documented as of this encounter
--- OUTSIDE RECORDS SUMMARY | 2024-11-10 05:01 | XMS_ITS | Encounter Summary ---
Author Organization [facility] Address [address] [place] [address] Phone Care Team Providers Care Fundraising Director Name Role Phone Charito Tillman PAC Primary Care Pro vider Reason for Visit * Reason Comments Tb Test Encounter Details Date Type Department Care Team (Latest Contact Info) Description 04/12/2023 2:40 PM CDT Urgent Care Visit [facility] [address] [place] [address] Carito Savage, JOURNEYMAN SHEET METAL WORKER, DIRECTOR TOXICOLOGY [address] [place] [address] Visit for TB skin test Discharge Disposition: Discharged to home or Selfcare [...] suspected to have Coronavirus/COVID-19? No / Unsure 04/12/2023 1:19 PM CDT documented as of this encounter Progress Notes * Carito Savage APRN, CNP - 04/12/2023 2:40 PM CDT PPD read. 0 mm reaction, no redness or bruising noted. documented in this encounter Plan of Treatment Not on file documented as of this encounter Procedures Procedure Name Priority Date/Time Associated Diagnosis Comments TB INTRADERMAL TEST Routine 04/10/2023 Visit for TB skin test documented in this encounter Results * TB INTRADERMAL TEST (04/10/2023) TB SKIN TEST 04/10/2023 Charito Tillman PAC POINT OF CARE REJI TING (MANUAL) Final Result documented in this encounter Visit Diagnoses Diagnosis Visit for TB skin test Screening examination for pulmonary tuberculosis documented in this encounter Additional Health Concerns Assessment Noted Time PHQ-9 Depression Total Score: 3 04/10/20 23 12:00 PM CDT documented as of this encounter Care Teams Fundraising Director Relationship Specialty Start Date End Date Charito Tillman, JYOTSNA [address] [place] [address] PCP - General Physician Regional Economist 07/17/22 documented as of this encounter
--- OUTSIDE RECORDS SUMMARY | 2024-11-10 05:01 | XMS_ITS | Encounter Summary ---
Author Organization [email or web address] Care Team Providers Care Html Developer Name Role Phone Charito Tillman PAC Primary Care Pro vider Encounter Details Date Type Department Care Team (Latest Contact Info) Description 04/12/2023 Travel Social History Tobacco Use Types Packs/Day [...] documented as of this encounter Care Teams Html Developer Relationship Specialty Start Date End Date Charito Tillman, JYOTSNA [address] [place] [address] PCP - General Physician Senior Compensation Analyst 07/17/22 documented as of this encounter
--- OUTSIDE RECORDS SUMMARY | 2024-11-10 05:01 | XMS_ITS | Encounter Summary ---
Author Organization [facility] Address [address] [place] [address] Phone Care Team Providers Care Data Technical Lead Name Role Phone Tina Tillmanines Adamselle PAC Primary Care Pro vider Reason for Visit * Reason Onset Date Comments Appointment 10/17/2022 Same day cancel Encounter Details Date Type Department Care Team (Late st Contact Info) Description 10/17/2022 Telephone [facility] at [facility] [address], [address] [place] [address] Nitza Chaparro, PT [place] Appointment (Same day cancel) Social History Tobacco Use Types Packs/Day Years [...] Coronavirus/COVID-19? No / Unsure 10/10/2022 1:10 PM TRANSFER AND PUMPHOUSE OPERATOR CHIEF documented as of this encounter Miscellaneous Notes * Telephone Encounter - Nitza Chaparro, PT - 10/17/2022 10:55 AM TRANSFER AND PUMPHOUSE OPERATOR CHIEF ----- Message from Kait Ramirez sent at 10/17/2022 10:37 AM TRANSFER AND PUMPHOUSE OPERATOR CHIEF ----- Regarding: cancellation Mary Carmen cancelled todays apt, states she knows you will want to do internal treatments and she is onher period SFER AND PUMPHOUSE OPERATOR CHIEF documented in this encounter Plan of Treatment Not on file documented as of this encounter Visit Diagnoses Not on filedocumented in this encounter Care Teams Data Technical Lead Relationship Specialty Start Date End Date Charito Tillman, JYOTSNA [address] [place] [address] PCP - General Physician Hat And Cap Opener 07/17/22 documented as of this encounter
--- OUTSIDE RECORDS SUMMARY | 2024-11-10 05:01 | XMS_ITS | Encounter Summary ---
Author Organization [facility] [facility] Care Team Providers Care Siebel Developer Name Role Phone Charito Tillman PAC Primary Care Pro vider Encounter Details Date Type Department Care Team (Latest Contact Info) Description 09/16/2022 Travel Social History Tobacco Use Types Packs/Day [...] suspected to have Coronavirus/COVID-19? No / Unsure 09/16/2022 1:07 PM BLOOD BANK LABORATORY TECHNOLOGIST documented as of this encounter Plan of Treatment Not on file documented as of this encounter Visit Diagnoses Not on filedocumented in this encounter Care Teams Siebel Developer Relationship Specialty Start Date End Date Charito Tillman, JYOTSNA [address] [place] [address] PCP - General Physician Nursing Informatics Analyst 07/17/22 documented as of this encounter
--- OUTSIDE RECORDS SUMMARY | 2024-11-10 05:01 | XMS_ITS | Encounter Summary ---
Author Organization [facility] Address [address] [place] [address] Phone Care Team Providers Care Manager Environmental Services Name Role Phone Charito Tillman PAC Primary Care Pro vider Reason for Visit * PT/OT/ST (Routine) - Closed Specialty Diagnoses / Procedures Referred By Yeny t Referred To Contact Rehabilitation Diagnoses Pelvic and perineal pain Zoya Jeffries APRN, REEL FED PRINTER Nishant [facility] [place] [address] Phone: tel: fax: [facility] at [facility] [address], [address] [address] Phone: tel: fax: Referral ID Status Reason Start Date Expiration Date Visits Re quested Visits Authorized [id number] Closed 1 120 Encounter Details Date Type Department Care Team (Late st Contact Info) Description 08/27/2022 1:15 PM CDT Physical Therapy [facility] at [facility] [address], [address] [place] [address] Zoya Jeffries APRN, REEL FED PRINTER [address] [place] [address] Nitza Bhakta, PT [place] Pelvic pain (Primary [...] of Care - Nitza Bhakta, PT - 08/27/2022 1:15 PM CDT Treatment Note - Electronically signed by: NITZA BHAKTA, PT August 27, 2022 SUBJECTIVE: The patient reports that she has been okay, reporting that she hasn't been doing the things that she was supposed to due to being ill. She reports that she went to stretch this morning and got pain in her stomach and vaginal area. She reports that she has had some increased pain, feeling someone isscratching the inside of her vagina. That is about the only pain she has been having. She reports that she had a lot of bowel movements after her last appointments, as well as was took some stool softeners. The patient reports that she bought the pelvic wand but forgot it. The patient reports that her side/back pain went away after her constipation was resolved. Objective TREATMENT: Refer to PT OP Rehab Therapy Treatment flowsheet for details/minutes. Patient was educated on all previous education, as well as patient was given a handout of the magnesium supplements for constipation, as well as discussed possibly using stool softeners as needed forconstipation in order to avoid straining as much as possible. Discussed urinations again this date and increasing her water intake in order to improve her number of urinations. The patient was educated on the manual therapy techniques performed this date, as well as how to use her pelvic wand at home, as well as a schedule for her pelvic wand. Educated on the HEP given this date, as well as givena piece of red TB for home. Patient educated that she can bring her boyfriend with her if she would like. Manual: Soft tissue work throughout her abdominal cavity, as well as right psoas release. Internal muscle releases to all layers of the pelvic floor, with focus on education and how it should feel touse the pelvic wand at home. Informed consent obtained for internal evaluation and treatment. Discussed with patient evaluation and treatment techniques for internal pelvic floor structures. Patient verbalizes understanding and consent for internal evaluation and treatment. Pt declined to have witness present during time of assessment. Access Code: [email or web address] URL: [email or web address] Date: 08/27/2022 Prepared by: Nitza Bhakta Exercises Hooklying Single Leg Bent Knee Fallouts with Resistance - 1-2 x daily - 7 x weekly - 1-2 sets - 10 reps Clamshell with Resistance - 1-2 x daily - 7 x weekly - 1-2 sets - 10 rep ASSESSMENT: Other Details: Patient demonstrates gradual progress as evidenced by reports of improvements in allareas in general, as she does continue to have increased pain; however it doesn't seem to be as badas previously. Her back/side pain has resolved with improvements in her constipation; however, she does still continue to be dealing with constipation. Patient to start using the pelvic wand at home, as well as possible bring in her boyfriend to the next visit, as well as progressing to more core stability work that she can perform at the gym. Patient would benefit from continued skilled interventions, as stated in the plan of care, due to the following functional limitations: physical recreation, entertainment activities, social activities outside the home, emotional health, feeling frustrated, work activities, school attendance, physical intimacy and participation in pelvic exam for health/wellness..?? All charges entered today are appropriate and [...] to facilitate urination and defecation without straining. 4- Patient to increase voiding to at least 5-6 times per day facilitate participation in work/home activities and allow for full pelvic floor lengthening throughout the day. 5- Patient to be able to verbalize strategies to reduce anxiety and to manage pain during her dailytasks, demonstrating improvement in her daily functions such as work and school. 6- Patient reports pain less than 2/10 during penetration in order to improve her intimacy with herpartner. 7- Improved function as demonstrated by an improved score on the PPIQ to 12/32 and 2/8 or better. Planned Interventions This patient will likely be seen for the following interventions: Manual Therapy (12124), Therapeutic Exercise (26181), Therapeutic Activities (43997), NeuromuscularRe-education (76395), Self Care/Home Management Training (16328), Gait Training (92012), Patient Education, Home Exercise Program Education, Pelvic [...] female genital organs documented in this encounter Additional Health Concerns Infection Onset Date Last Indicated Resolved Time COVID - 19 08/19/2022 08/19/2022 08/29/2022 12:1 6 AM CDT documented as of this encounter Care Teams Manager Environmental Services Relationship Specialty Start Date End Date Charito Tillman PAC [address] [place] [address] PCP - General Physician Dice Spotter 07/17/22 documented as of this encounter
--- OUTSIDE RECORDS SUMMARY | 2024-11-10 05:01 | XMS_ITS | Encounter Summary ---
Author Organization [facility] Address [address] [facility] [place] [address] Phone Care Team Providers Care County Superintendent Of Schools Name Role Phone Charito Tillman Primary Care Pro vider Reason for Referral * Radiology Services (Routine) - Closed Specialty Diagnoses / Procedures Referred By Contac t Referred To Contact Radiology Diagnoses Back pain, unspecified back location, unspecified back pain laterality, unspecified chronicity Procedures XR LUMBAR SPINE MINIMUM 4 VIEWS Charito Tillman PAC [address] [place] [address] Phone: tel: fax: Referral ID Status Reason Start Date Expiration Date Visits Re quested Visits Authorized [id number] Closed 03/03/2024 1 1 Reason for Visit * Radiology Services (Routine) - Closed Specialty Diagnoses / Procedures Referred By Contac t Referred To Contact Radiology Diagnoses Back pain, unspecified back location, unspecified back pain laterality, unspecified chronicity Procedures XR LUMBAR SPINE MINIMUM 4 VIEWS Charito Tillman PAC [address] [place] [address] Phone: tel: fax: Referral ID Status Reason Start Date Expiration Date Visits Re quested Visits Authorized [id number] Closed 03/03/2024 1 1 Encounter Details Date Type Department Care Team (Latest Contact Info) Description 03/04/2024 12:35 PM CDT - 03/04/2024 11:59 PM CDT Hospital Encounter [facility] Diagnostic Radiology [address] [place] [address] Charito Tillman, PAC [address] [place] [address] Discharge Disposition: Discharged to home or Selfcare Social History Tobacco Use Types Packs/Day Years Used Date Smoking Tobacco: Never Smokeless Tobacco: Never Alcohol Use Standard Drinks/Week Comments Yes 0 (1 standard drink = 0.6 oz pur e alcohol) [facility] Utilities Answer Date Recorded In the past 12 months has e electric, gas, oil, or water company [...] often do you attend chur ch or jainism services? Patient declined 03/03/2024 Do you belong to any clubs o r organizations such as tenriism groups, unions, fraternal or athletic groups, or [...] Total Score - Questions 1-9 3 06/2023 [facility] Occupat psychiatric hospital[facility] - Occupational Stress Questionnaire Answer Date [...] place to sleep or slept in a skilled nursing (including now)? No 03/03/2024 Education Answer Date [...] on file documented as of this encounter Medications at Time of Discharge cyclobenzaprine (FLEXERIL) 10 MG Tablet TAKE 1 TABLET BY MOUTH TWICE A DAY NEEDED FOR 10 DAYS 07/17/2022 gabapentin (NEURONTIN) 300 MG Capsule Take 300 mg by mouth nightly. documented as of this encounter Plan of Treatment Not on file documented as of this encounter Procedures Procedure Name Priority Date/Time Associated Diagnosis Comments XR LUMBAR SPINE MINIMUM 4 VIEWS Routine 03/04/2024 1:01 PM CDT Back pain, unspecified back location, unspecified back pain laterality, unspecified chronicity documented in this encounter Results * XR LUMBAR SPINE [...] ?? Remainder of the pars are intact. ??Srcz-tc-izqxpidw amount of stool projects over the imaged abdomen and pelvis. THIS IS AN ELECTRONICALLY VERIFIED FINAL REPORT 03/04/2024 8:14 PM - Electronically signed by ??Bernard Ramos D.O. AP: AP D: ??03/04/2024 8:14 PM T: ??03/04/2024 8:14 PM Report ID: [id number] Reading Location: ??[id number] Procedure Note Bernard Ramos DO - 03/04/2024 [...] profiled. Remainder of the pars are intact. Zhps-tf-wumermdx amount of stool projects over the imaged abdomen and pelvis. THIS IS AN ELECTRONICALLY VERIFIED FINAL REPORT 03/04/2024 8:14 PM - Electronically signed by Bernard Ramos D.O. AP: AP Report ID: [id number] Reading Location: [id number] IMPRESSION: Mild lumbar degenerative changes. Charito Tillman PAC IMG DIAGNOSTIC OR DERABLES Final Result documented in this encounter Visit Diagnoses Diagnosis Back pain, unspecified back location, unspecified back pain laterality, unspecified chronicity documented in this encounter Additional Health Concerns Assessment Noted Time PHQ-9 Depression Total Score: 3 04/10/20 23 12:00 PM CDT documented as of this encounter Care Teams County Superintendent Of Schools Relationship Specialty Start Date End Date Charito Tillman, JYOTSNA [address] [place] [address] PCP - General Physician Paint Preparer 07/17/22 documented as of this encounter
--- OUTSIDE RECORDS SUMMARY | 2024-11-10 05:01 | XMS_ITS | Encounter Summary ---
Author Organization [facility] Address [address] [place] [address] Phone Care Team Providers Care Pulp Tester Name Role Phone Charito Tillman PAC Primary Care Pro vider Reason for Visit * Reason Onset Date Comments Appointment 09/23/2022 Same day cancel - dad's surgery Encounter Details Date Type Department Care Team (Late st Contact Info) Description 09/23/2022 Telephone [facility] at [facility] [address], [address] [place] [address] Nitza Chaparro, PT [place] Appointment (Same day cancel - dad's surgery) Social History Tobacco Use Types Packs/Day Years [...] Coronavirus/COVID-19? No / Unsure 09/16/2022 1:07 PM RUBBER CALENDER HELPER documented as of this encounter Miscellaneous Notes * Telephone Encounter - Nitza Chaparro, PT - 09/23/2022 11:29 AM RUBBER CALENDER HELPER ----- Message from Yamilex Torre sent at 09/23/2022 11:19 AM RUBBER CALENDER HELPER ----- Regarding: cdx Dad going in for surgery tomorrow and she's busy ER CALENDER HELPER documented in this encounter Plan of Treatment Not on file documented as of this encounter Visit Diagnoses Not on filedocumented in this encounter Care Teams Pulp Tester Relationship Specialty Start Date End Date Charito Tillman, JYOTSNA [address] [place] [address] PCP - General Physician Waistband Setter Lockstitch 07/17/22 documented as of this encounter
--- OUTSIDE RECORDS SUMMARY | 2024-11-10 05:01 | XMS_ITS | Encounter Summary ---
Author Organization [facility] Address [address] [place] [address] Phone Care Team Providers Care Renal Technician Name Role Phone Charito Tillman PAC Primary Care Pro vider Reason for Visit * PT/OT/ST (Routine) - Closed Specialty Diagnoses / Procedures Referred By Yeny t Referred To Contact Rehabilitation Diagnoses Pelvic and perineal pain Zoya Jeffries APRN, TIRE SPOTTER Nishant [facility] [place] [address] Phone: tel: fax: [facility] [address], [address] [address] Phone: tel: fax: Referral ID Status Reason Start Date Expiration Date Visits Re quested Visits Authorized [id number] Closed 1 120 Encounter Details Date Type Department Care Team (Late st Contact Info) Description 09/16/2022 1:15 PM BISQUE KILN DRAWER Physical Therapy [facility] [address], [address] [place] [address] Zoya Jeffries APRN, [place] [address] Jose David Bhakta, PT [place] Pelvic pain (Primary Dx); [...] Coronavirus/COVID-19? No / Unsure 09/16/2022 1:07 PM BISQUE KILN DRAWER documented as of this encounter Miscellaneous Notes * Plan of Care - Jose David Bhakta, PT - 09/16/2022 1:15 PM CST Treatment Note - Electronically signerd by: TRENT MORRIS, Student September 16, 2022 SUBJECTIVE: Patient states that she needs new shoes because her back hurts and will be doing double shifts. Patient states that she is not having any pain. Patient says that she started her period this week so she did not do any wand work. She also did not use tampons with her period and it felt better withouthaving that pinching feeling. Patient says she has been doing her exercises at home and she still works up a sweat . Patient states that her bowel movements are better from abdominal massage. Patient says the scratching feeling has been to a minimal with gabapentin and going to the bathroom. Patient states that she did just experience that scratching feeling but happens very rarely. OBJECTIVE Observation: Functional Outcomes/Other Observations: Increased core activation with diaphragmatic breathing. TREATMENT: Refer to PT OP Rehab Therapy Treatment flowsheet for details/minutes. Education: Patient was educated on using organic cotton tampons to decrease irritation to vulvar glands or keep using pads since it is helping with her scratching feeling. Patient was educated on the exercises that will be added to her HEP to help increase core stability and increase hip strength. Patient was reeducated on how important breath is to activate lower abdominals to engage pelvic floor and flattening stomach. Patient was educated that when her period is subsiding to start re-usingher wand to give relief to pelvic floor muscles. Access Code: [email or web address] URL: [email or web address] Date: 09/16/2022 Prepared by: Jose David Bhakta Exercises Hooklying Single Leg Bent Knee Fallouts with Resistance - 1-2 x daily - 7 x weekly - 1-2 sets - 10 reps Clamshell with Resistance - 1-2 x daily - 7 x weekly - 1-2 sets - 10 reps Bug with Fijian Ball - 1-2 x daily - 7 x weekly - 1-2 sets - 10 reps Bridge - 1 x daily - 7 x weekly - 3 sets - 10 reps ASSESSMENT: Other Details: Patient demonstrates gradual progress as evidenced by continual reports of no increase in pain and increased core activation. Patient reports that she has been experiencing some back pain but nothing significant. Patient was able to successfully perform therex today with verbal cues to increase core activation and hip strength. Therapeutic exercise addressed patients deficits to help stabilize pelvis and decrease symptoms. Patients next step is to work on relaxation of pelvic floor so the patient can increase her ability to strengthen pelvic floor through full range of motion. Patient is planned to progress with pelvic [...] improve her intimacy with herpartner. Progress rcw 09/16/22 7- Improved function as demonstrated by an improved score on the PPIQ to 12/32 and 2/8 or better. Planned Interventions This patient will likely be seen for the following interventions: Manual Therapy (42468), Therapeutic Exercise (84991), Therapeutic Activities (50276), NeuromuscularRe-education (62204), Self Care/Home Management Training (57576), Gait Training (88913), Patient Education, Home Exercise Program Education, Pelvic [...] Treatment provided jointly by HEAVEN Stanford and JOSE DAVID BHAKTA PT, with qualified caregiver directing care through skilled judgment and taking responsibility for assessment and treatment. Ihave read and agree with student documentation by HEAVEN Stanford on this date. Review of documentation includes Note, Doc flow sheet and associated functions to support documentation. I was present and actively involved in all aspects of Mary Carmen Chen's care. JOSE DAVID BHAKTA PT UE KILN DRAWER UE KILN DRAWER UE KILN DRAWER UE KILN DRAWER documented in this encounter Plan of Treatment Not on file documented as of this encounter Visit Diagnoses Diagnosis Pelvic pain- Primary Unspecified symptom associated with female genital organs High-tone pelvic floor dysfunction Other specified disorders of female genital organs documented in this encounter Care Teams Renal Technician Relationship Specialty Start Date End Date Charito Tillman, [place] [address] [place] [address] PCP - General Physician High School Social Studies Tutor 07/17/22 documented as of this encounter
--- OUTSIDE RECORDS SUMMARY | 2024-11-10 05:01 | XMS_ITS | Encounter Summary ---
Author Organization [employer] Care Team Providers Care Dance Teacher Name Role Phone Charito Tillman PAC Primary Care Pro vider Encounter Details Date Type Department Care Team (Latest Contact Info) Description 04/10/2023 Travel Social History Tobacco Use Types Packs/Day [...] suspected to have Coronavirus/COVID-19? No / Unsure 04/10/2023 4:10 AM CDT documented as of this encounter Functional Status * Question Answer [...] Díaz RMA documented as of this encounter Plan of Treatment Not on file documented as of this encounter Visit Diagnoses Not on filedocumented in this encounter Additional Health Concerns Assessment Noted Time PHQ-9 Depression Total Score: 3 04/10/20 12:00 PM CDT documented as of this encounter Care Teams Dance Teacher Relationship Specialty Start Date End Date Charito Tillman PAC [address] [place] [address] PCP - General Physician Contract Coordinator 07/17/22 documented as of this encounter
--- OUTSIDE RECORDS SUMMARY | 2024-11-10 05:01 | XMS_ITS | Encounter Summary ---
Author Organization [employer] Care Team Providers Care Lawn Sprinkler Installer Name Role Phone Charito Tillman PAC Primary Care Pro vider Encounter Details Date Type Department Care Team (Latest Contact Info) Description 01/23/2023 Travel Social History Tobacco Use Types Packs/Day [...] 01/23/2023 01/23/2023 0 01/23/2023 9:34 AM CDT COVID - 19 Confirmed 01/23/2023 01/23/2023 023 12:18 AM CDT documented as of this encounter Care Teams Lawn Sprinkler Installer Relationship Specialty Start Date End Date Charito Tillman, PAC [address] [place] [address] PCP - General Physician Browning Processor 07/17/22 documented as of this encounter
--- OUTSIDE RECORDS SUMMARY | 2024-11-10 05:01 | XMS_ITS | Encounter Summary ---
Author Organization [facility] Address [address] [place] [address] Phone Care Team Providers Care Solution Consultant Name Role Phone Charito Tillman PAC Primary Care Pro vider Reason for Visit * PT/OT/ST (Routine) - Closed Specialty Diagnoses / Procedures Referred By Yeny t Referred To Contact Rehabilitation Diagnoses Pelvic and perineal pain Zoya Jeffries APRN, BONE TENDER Nishant [facility] [place] [address] [place] [address] Phone: tel: fax: [facility] [address], [address] [address] Phone: tel: fax: Referral ID Status Reason Start Date Expiration Date Visits Re quested Visits Authorized [id number] Closed 1 120 Encounter Details Date Type Department Care Team (Late st Contact Info) Description 11/14/2022 12:45 PM PRODUCTION WEIGHER Physical Therapy [facility] [address], [address] [place] [address] Zoya Jeffries APRN, [place] [address] Nitza Bhakta, PT [place] Pelvic pain (Primary [...] Coronavirus/COVID-19? No / Unsure 11/14/2022 12:32 PM PRODUCTION WEIGHER documented as of this encounter Miscellaneous Notes * Plan of Care - Nitza Bhakta, PT - 11/14/2022 12:45 PM CST Treatment Note - Electronically signed by: NITZA BHAKTA, PT November 14, 2022 SUBJECTIVE: The patient reports that she has been working a lot. She reports that she has been okay, reporting that the day that she cancelled her appointment, she had some increased pain, reporting that it was more ovulation pain, reporting that she is supposed to be starting her period pretty soon. The patient reports that she continues to get a little pain in her lower abdominal wall sometimes if she really stretches her abdominal wall or flexes her abdominal wall, causing pain into her pelvic floor. The other day, the pain lasted about an hour and then went away. She reports that she has had this random type pain since she was about 15 years old. No scratching or pain with intercourse since last report. The patient reports that her urinary symptoms have been good and she is drinking more water. The patient reports that she hasn't really been doing her exercises at home. Objective TREATMENT: Refer to PT OP Rehab Therapy Treatment flowsheet for details/minutes. Education: Patient was educated on all previous education, as well as reviewed her HEP and the importance of getting back into her exercises and using her pelvic wand, as it has slightly increased but continued to be lower, in order to really see the most improvements and work on those superficial muscles. The patient was educated on the manual therapy techniques performed this date and the general plan to continue therapy secondary to her overall progress but continued pain levels. Access Code: [email or web address] Manual: Internal muscle releases to all layers [...] making overall progress in all areas. She is gradually getting back into using her exercises and wand at home but needs to increase her exercises at home. She continues to have mild restrictions during manual therapy, mostly superficially but continues to improve each visit. The patient has made improvements in her pain, but she does continue to deal with some rectalpain with bowel movements which are newer, as well as the penetration pain with intercourse. Plan to continue seeing this patient for skilled therapy to continue her improvements, working toward meeting her goals and resolving her pain, adding in more core strengthening, standing as able, as well as possibly abdominal stretching. Patient would benefit from continued skilled interventions, [...] seen for the following interventions: Manual Therapy (33752), Therapeutic Exercise (26174), Therapeutic Activities (47964), NeuromuscularRe-education (73986), Self Care/Home Management Training (81276), Gait Training (28716), Patient Education, Home Exercise Program Education, Pelvic [...] the opportunity to work with this individual.. UCTION WEIGHER UCTION WEIGHER * Plan of Care - Nitza Bhakta PT - 11/14/2022 12:45 PM CST Discharge Summary Mary Carmen Chen is a 22 y.o. female who presented to therapy secondary to increased pelvic pain. The patient has completed 9 total visits of PT. Overall, the patient made good progress in therapy, meeting some of her goals and progressing toward all of her goals. The patient did not show for multiple appointments and due to the attendance policy, she is being discharged from therapy. The patient can return to therapy in 6 weeks with a new referral from her provider. Please see previous notes for further information. NITZA BHAKTA PT UCTION WEIGHER documented in this encounter Plan of Treatment Not on file documented as of this encounter Visit Diagnoses Diagnosis Pelvic pain- Primary Unspecified symptom associated with female genital organs High-tone pelvic floor dysfunction Other specified disorders of female genital organs documented in this encounter Care Teams Solution Consultant Relationship Specialty Start Date End Date Charito Tillman, [facility] [address] [place] [address] PCP - General Physician Aba Tutor 07/17/22 documented as of this encounter
--- OUTSIDE RECORDS SUMMARY | 2024-11-10 05:01 | XMS_ITS | Encounter Summary ---
Author Organization [facility] Address [address] [place] [address] Phone Care Team Providers Care Certified Lactation Educator Name Role Phone Charito Tillman PAC Primary Care Pro vider Encounter Details Date Type Department Care Team (Late st Contact Info) Description 05/23/2023 Telephone [facility] - [facility] - [place] [address] [place] [address] Charito Tillman, PAC [address] [place] [address] Social History Tobacco Use Types Packs/Day Years [...] AM CDT documented as of this encounter Miscellaneous Notes * Telephone Encounter - Lena Erazo - 05/23/2023 1:13 PM CDT Resend new script Medication - Medrol dose pack Phone - [phone] Pharmacy - [facility] did not receive. documented in this encounter Plan of Treatment Not on file documented as of this encounter Visit Diagnoses Not on filedocumented in this encounter Additional Health Concerns Assessment Noted Time PHQ-9 Depression Total Score: 3 04/10/20 23 12:00 PM CDT documented as of this encounter Care Teams Certified Lactation Educator Relationship Specialty Start Date End Date Charito Tillman PAC [address] [place] [address] PCP - General Physician Handwriting Expert 07/17/22 documented as of this encounter
--- OUTSIDE RECORDS SUMMARY | 2024-11-10 05:01 | XMS_ITS | Encounter Summary ---
Author Organization [facility] Address [address] [place] [address] Phone Care Team Providers Care Communication Studies Professor Name Role Phone Charito Tillman PAC Primary Care Pro vider Reason for Visit * Reason Onset Date Comments Results 08/05/2022 Abdominal US Encounter Details Date Type Department Care Team (Late st Contact Info) Description 08/05/2022 Telephone [facility] - Internal Medicine - [place] [address] [facility] [address] [id number] Charito Tillman, [facility] [address] [address] Results (Abdominal US) Social History Tobacco Use Types Packs/Day Years [...] encounter Miscellaneous Notes * Telephone Encounter - Ricarda Bertrand RN - 08/05/2022 4:55 PM CDT ----- Message from JYOTSNA Arndt sent at 08/05/2022 4:33 PM CDT ----- ?? IMPRESSION: ?? 1. Essentially normal pelvic ultrasound. 2. Normal appearance on more limited view of the bladder. Patient was unable to completely void prior to the transvaginal portion. documented in this encounter Plan of Treatment Not on file documented as of this encounter Visit Diagnoses Not on filedocumented in this encounter Care Teams Communication Studies Professor Relationship Specialty Start Date End Date Charito Tillman PAC [address] [place] [address] PCP - General Physician Clinical Psychiatrist 07/17/22 documented as of this encounter
--- OUTSIDE RECORDS SUMMARY | 2024-11-10 05:01 | XMS_ITS | Encounter Summary ---
Author Organization [facility] Address [address] [place] [address] Phone Care Team Providers Care Mental Health Orderly Name Role Phone Charito Tillmanelle PAC Primary Care Pro vider Encounter Details Date Type Department Care Team (Late st Contact Info) Description 08/19/2022 12:50 PM CDT Lab [facility] - Internal Medicine - [place] [address] [place] [address] [facility] Acute cough (Primary Dx); Fever, unspecified fever cause; Sore throat Discharge Disposition: Discharged to home or Selfcare [...] of this encounter Progress Notes * Sabina Díaz RMA - 08/19/2022 12:50 PM CDT POCT Covid-19 and Flu A and B swab was collected today 08/19/2022 per order of Charito GOYAL . Patient tolerated well. Results come back Positive for Flu A. Results were printed and given to provider for review. documented in this encounter Plan of Treatment Not on file documented as of this encounter Procedures Procedure Name Priority Date/Time Associated Diagnosis Comments POCT SARS ANTIGEN CRISTIANA/INFLUENZA A & B COMBINATION Routine 08/19/2022 12:45 PM CDT Acute cough Fever, unspecified fever cause Sore throat documented in this encounter Results * (ABNORMAL) POCT SARS ANTIGEN CRISTIANA/INFLUENZA A & B COMBINATION (08/19/2022 12:45 PM CDT) POC SARS ANTIGEN CRISTIANA Negative Negative POC SARS ANTIGEN CRISTIANA CONTROL Veneer Gluer Pass Rapid Influenza A PRESUMPTIVE POSITIVE FOR THE PRESENCE OF INFLUENZA A ANTIGEN(A) PRESUMPTIVE NEGATIVE FOR THE PRESENCE OF INFLUENZA A ANTIGEN, INDETERMINATE Rapid Influenza B PRESUMPTIVE NEGATIVE FOR THE PRESENCE OF INFLUENZA B ANTIGEN PRESUMPTIVE NEGATIVE FOR THE PRESENCE OF INFLUENZA B ANTIGEN, INDETERMINATE POC INFLUENZA CONTROL Veneer Gluer Pass Swab NASAL STRUCTURE / Unknown 08/19/2022 12:45 PM CDT Charito Tillman [facility] POINT OF CARE REJI RUIZ (MANUAL) Final Result documented in this encounter Visit Diagnoses Diagnosis Acute cough- Primary Fever, unspecified fever cause Sore throat Acute pharyngitis documented in this encounter Additional Health Concerns Infection Onset Date Last Indicated Resolved Time COVID - 19 08/19/2022 08/19/2022 08/29/2022 12:1 6 AM CDT documented as of this encounter Care Teams Mental Health Orderly Relationship Specialty Start Date End Date Charito Tillman, JYOTSNA [address] [place] [address] PCP - General Physician Aviation Boatswain'S Mate 07/17/22 documented as of this encounter
--- OUTSIDE RECORDS SUMMARY | 2024-11-10 05:01 | XMS_ITS | Encounter Summary ---
Author Organization [facility] Address [address] [place] [address] Phone Care Team Providers Care Greenhouse Transplanter Name Role Phone Charito Tillman PAC Primary Care Pro vider Reason for Visit * Reason Comments Tb Test Encounter Details Date Type Department Care Team (Latest Contact Info) Description 04/19/2023 3:05 PM CDT Clinical Support [facility] [place] [address] [place] [id number] Nurse, [facility] Visit for TB skin test (Primary Dx) Discharge Disposition: Discharged to [...] as of this encounter Progress Notes * Deven Tom, RN - 04/19/2023 3:05 PM CDT Pt needs a 2 step TB test, I administered it into her right arm. I educated her on when to come back in to have it read. documented in this encounter Plan of Treatment Not on file documented as of this encounter Procedures Procedure Name Priority Date/Time Associated Diagnosis Comments TB INTRADERMAL TEST Routine 04/21/2023 4 :22 PM CDT Visit for TB skin test documented in this encounter Results * TB INTRADERMAL TEST (04/21/2023 4:22 PM CDT) TB SKIN TEST 0.0 04/21/2023 4:22 PM CDT Nicolás Pena APRN, UNIT MANAGER RN POINT OF CARE TE STING (MANUAL) Final Result documented in this encounter Visit Diagnoses Diagnosis Visit for TB skin test- Primary Screening examination for pulmonary tuberculosis documented in this encounter Administered Medications Inactive Administered Medications - up to 3 most recent administrations Medication Order MAR Action Action Date Dose Rate Site tuberculin injection 5 Units 5 Units, Intradermal, ONCE, 1 dose, On 04/19/23 at 1530, Read test 48-72 hours after intradermal injectionIndications:Visit for TB skin test Given 04/19/2023 3:14 PM CDT 5 Units documented in this encounter Additional Health Concerns Assessment Noted Time PHQ-9 Depression Total Score: 3 04/10/20 23 12:00 PM CDT documented as of this encounter Care Teams Greenhouse Transplanter Relationship Specialty Start Date End Date Charito Tillman, JYOTSNA [address] [place] [address] PCP - General Physician Catering Associate 07/17/22 documented as of this encounter
--- OUTSIDE RECORDS SUMMARY | 2024-11-10 05:01 | XMS_ITS | Encounter Summary ---
Author Organization [facility] Address [address] [place] [address] Phone Care Team Providers Care Welding Machine Assembler Name Role Phone Charito Tillman PAC Primary Care Pro vider Reason for Visit * Reason Comments Chest Pain Encounter Details Date Type Department Care Team ([facility] st Contact Info) Description 08/03/2023 3:40 PM CDT - 08/03/2023 5:43 PM CDT Emergency [facility] Emergency [address] [place] [address] Triny Nobles MD [address] [place] [address] Nonspecific chest pain Discharge Disposition: Discharged to home or Selfcare [...] Sign Reading Time Taken Comments Blood Pressure 104/64 08/03/2023 5:15 PM CDT Pulse 76 08/03/2023 5:15 PM CDT Temperature 36 ??C (96.8 ??F) 08/03/2023 3:32 PM CDT Respiratory Rate 14 08/03/2023 5:15 PM CDT Oxygen Saturation 100% 08/03/2023 5:15 PM CDT Inhaled Oxygen Concentration - - Weight 89.8 kg (197 lb 15.6 oz) 08/03/2023 3:32 PM CDT Height 160 cm (5' 3 ) 08/03/2023 3:32 PM CDT Body Mass Index 35.07 08/03/2023 3:32 PM CDT documented in this encounter Discharge Instructions * Attachments The following attachments cannot be sent through Care Everywhere. * Nonspecific Chest Pain Adult [id number] (Sudanese) documented in this encounter Medications at Time of Discharge cyclobenzaprine (FLEXERIL) 10 MG Tablet TAKE 1 TABLET BY MOUTH TWICE A DAY NEEDED FOR 10 DAYS 07/17/2022 gabapentin (NEURONTIN) 300 MG Capsule Take 300 mg by mouth nightly. busPIRone (BUSPAR) 5 MG Tablet Take 1 Tablet by mouth 2 times daily. 180 Tablet 1 08/14/2022 4 methylPREDNISolo ne (MEDROL DOSPACK) 4 MG Tablet Therapy Pack Follow instructions on pack, take with food; Give one pack 1 Tablet 05/23/2023 4 Norethin Mariano-Eth Estrad-FE 1.5-30 MG-MCG Tablet Take 1 Tablet by mouth daily. 08/07/2020 4 omeprazole (PriLOSEC) 20 MG CAPSULE DELAYED RELEASE Take 20 mg by mouth daily. 08/10/2020 4 tiZANidine HCl 4 MG Capsule 05/21/2023 4 traMADol (ULTRAM) 50 MG TabletIndication s:Nonspecific chest pain Take 1 Tablet by mouth every 8 hours as needed for Mild or more severe pain. 15 Tablet 08/03/2023 4 documented as of this encounter ED Notes * Fahad Garcia RN - 08/03/2023 5:43 PM CDT explained purpose and common side effects of medications ordered. she has excuses for work and school. she states she feels better after medication. she states dr nobles answered her questions. no new c/o's. ambulatory out of er with steady gait accompanied by male. * Fahad Garcia RN - 08/03/2023 4:55 PM CDT explained purpose and common side effects of medications ordered. she has had same med in past withrelief. no new questions or c/o's. * Triny Nobles MD - 08/03/2023 4:42 PM CDTAssociated Order(s): EKG 12 LEAD Chief Complaint Patient presents with ??? Chest Pain Patient is a 23-year-old white female who presented to ED with left upper chest pain that started 2hours ago while patient was at work. Patient notes the pain is on and off and is radiating to mid upper back. 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 She denies history of blood clots, she noted she has a family history of heart disease. She takes control pill, and is shown BuSpar and gabapentin. She has history of shoulder surgery and had upper GI bleed when she was given Toradol. She denies shortness of breath. No current facility-administered medications for this encounter. Current Outpatient Medications Medication Sig Dispense Refill ??? busPIRone (BUSPAR) 5 MG Tablet Take 1 Tablet by mouth 2 times daily. (Patient not taking: Reported on 04/10/2023) 180 Tablet 1 ??? cyclobenzaprine (FLEXERIL) 10 MG Tablet TAKE 1 TABLET BY MOUTH TWICE A DAY NEEDED FOR 10 DAYS ??? gabapentin (NEURONTIN) 300 MG Capsule Take 300 mg by mouth nightly. ??? methylPREDNISolone (MEDROL DOSPACK) 4 MG Tablet Therapy Pack Follow instructions on pack, take with food; Give one pack 1 Tablet 0 ??? Norethin Mariano-Eth Estrad-FE 1.5-30 MG-MCG Tablet Take 1 Tablet by mouth daily. ??? omeprazole (PriLOSEC) 20 MG CAPSULE DELAYED RELEASE Take 20 mg by mouth daily. (Patient not taking: Reported on 04/10/2023) ??? tiZANidine HCl 4 MG Capsule ??? traMADol (ULTRAM) 50 MG Tablet Take 1 Tablet by mouth every 8 hours as needed for Mild or more severe pain. 15 Tablet 0 Allergies Allergen Reactions ??? Ketorolac Vomiting Vomiting blood Vomiting blood History reviewed. No pertinent past medical history. Past Surgical History: Procedure Laterality Date ??? SHOULDER SURGERY Social History Socioeconomic History ??? Marital status: Single Spouse name: Not on file ??? Number of children: Not on file ??? Years of education: Not on file ??? Highest education level: Some college, no degree Occupational History ??? Not on file Tobacco Use ??? Smoking status: Never ??? Smokeless tobacco: Never Vaping Use ??? Vaping Use: Every day ??? Substances: Nicotine, THC, Flavoring ??? Devices: Disposable Substance and Sexual Activity ??? Alcohol use: Yes ??? Drug use: Yes Types: Marijuana ??? Sexual activity: Yes Other Topics Concern ??? Not on file Social History Narrative ??? Not on file BP 119/65 Pulse 76 Temp 96.8 ??F (36 ??C) (Temporal) Resp 24 Ht 5' 3 (1.6 m) Wt 197 lb 15.6 oz (89.8 kg) LMP 04/08/2023 SpO2 100% BMI 35.07 kg/m?? Review of Systems Constitutional: Negative for fatigue. HENT: Negative. Respiratory: Positive for chest tightness. Negative for shortness of breath. Cardiovascular: Negative for chest pain. Genitourinary: Negative. Musculoskeletal: Negative. Skin: Negative. Neurological: Negative. Psychiatric/Behavioral: Negative. All other systems reviewed and are negative. Physical Exam Vitals and nursing note reviewed. Constitutional: Appearance: She is obese. HENT: Head: Normocephalic. Cardiovascular: Rate and Rhythm: Normal rate. Heart sounds: Normal heart sounds. Pulmonary: Breath sounds: Normal breath sounds. Abdominal: General: Bowel sounds are normal. Palpations: Abdomen is soft. Musculoskeletal: General: Normal range of motion. Cervical back: Normal range of motion and neck supple. Skin: General: Skin is warm and dry. Capillary Refill: Capillary refill takes less than 2 seconds. Neurological: General: No focal deficit present. Mental Status: She is alert. EKG 12 LEAD Performed by: Triny Nobles MD Authorized by: Triny Nobles MD Interpretation: Interpretation: normal Rate: ECG rate assessment: normal Rhythm: Rhythm: sinus rhythm Ectopy: Ectopy: none QRS: QRS axis: Normal ST segments: ST segments: Normal Recent Results (from the past 24 hour(s)) CMP (Comprehensive Metabolic Panel) Result Value Ref Range SODIUM 134 (L) 136 - 145 mmol/L POTASSIUM 3.4 (L) 3.5 - 5.1 mmol/L CHLORIDE 105 98 - 107 mmol/L CO2, VENOUS 21 (L) 22 - 30 mmol/L ANION GAP 11.4 <18.0 mmol/L GLUCOSE 93 70 - 99 mg/dL BUN 8 5 - 18 mg/dL CREATININE, BLOOD 0.74 0.60 - 1.00 mg/dL BUN/CREATININE RATIO 11 (L) 12 - 20 ratio TOTAL PROTEIN 6.7 6.3 - 8.2 g/dL ALBUMIN 3.4 (L) 3.5 - 5.0 g/dL A/G RATIO 1.0 1.0 - 2.2 CALCIUM 8.7 8.7 - 10.5 mg/dL T BILI 0.3 0.2 - 1.2 mg/dL SGOT (AST) 21 5 - 34 U/L SGPT (ALT) 31 0 - 55 U/L ALKALINE PHOSPHATASE 65 40 - 150 U/L GFR, ESTIMATED >60 >=60 GFR, EST. >60 >=60 GFR, EST. NONAFRICAN >60 >=60 TROPONIN I, HIGH SENSITIVITY (HSTRP) Result Value Ref Range TROPONIN I, HIGH SENSITIVITY- FRY <3 <=14 ng/L CBC with Auto Differential Result Value Ref Range WBC 14.60 (H) 4.00 - 12.00 10(3)/mcL RBC 4.38 3.80 - 5.30 10(6)/mcL HEMOGLOBIN (HGB) 12.2 12.0 - 15.8 g/dL HEMATOCRIT (HCT) 37.8 36.0 - 47.0 % MCV 86.3 82.0 - 96.0 fL MCH 27.9 26.0 - 34.0 pg MCHC 32.3 31.0 - 36.0 g/dL PLATELET COUNT 394 140 - 440 10(3)/mcL RDW 12.2 11.8 - 15.5 % MPV 9.8 9.7 - 12.4 fL NEUTROPHILS 71.1 47.0 - 73.0 % LYMPHOCYTES 22.4 18.0 - 42.0 % MONOCYTES 4.7 4.0 - 12.0 % EOSINOPHILS 1.5 0.0 - 5.0 % BASOPHILS 0.3 0.0 - 1.0 % ABSOLUTE NEUTROPHILS 10.38 (H) 1.60 - 7.70 10(3)/mcL ABSOLUTE LYMPHOCYTES 3.27 (H) 1.30 - 3.20 10(3)/mcL ABSOLUTE MONOCYTES 0.68 0.20 - 1.00 10(3)/mcL ABSOLUTE EOSINOPHIL 0.22 0.00 - 0.40 10(3)/mcL ABSOLUTE BASOPHILS 0.05 0.00 - 0.10 10(3)/mcL NRBC PER 100 WBC 0 D-DIMER [id number] Result Value Ref Range D DIMER 0.52 (H) <0.50 mcg/mL FEU POCT Urine HCG () Result Value Ref Range POC URINE Negative POC URINE CONTROL Dynamo Repairer Pass Imaging Results XR CHEST 2 VIEWS (Final result) Result time 08/03/23 16:58:04 Final result by Gregory Ferrer DO (08/03/23 16:58:04) Impression: IMPRESSION: No acute cardiopulmonary abnormality. Narrative: EXAM DESCRIPTION: XR CHEST 2 VIEWS REASON FOR STUDY: c/o left sided chest pain radiating into her back worse on expiration. 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 TECHNIQUE: PA and lateral radiographic view(s) of the chest. COMPARISON: None. FINDINGS: LUNGS: No focal opacity, pleural effusion, or pneumothorax. HEART/MEDIASTINUM: Cardiac silhouette normal in size. Mediastinal and hilar contours appear normal. LINES/TUBES: None. BONES: No acute osseous abnormality. THIS IS AN ELECTRONICALLY VERIFIED FINAL REPORT 08/03/2023 4:55 PM - Electronically signed by Gregory Ferrer M.D., Kumar.O. Gregory Ferrer M.D., D.O. MW: [id number] Report ID: [id number] [place] Location: [address] [place] Triny Nobles MD (08/03/23 16:56:04, [facility], Emergency Medicine) Increased bronchial markings noted MDM Clinical Impression 1. Nonspecific chest pain Disposition: Discharged ED Course as of 08/03/23 1725 Sun Aug 03, 2023 1646 Patient is a 23-year-old white female who presented to ED with left upper chest pain. Patient states the pain is radiating to the upper mid back. She has similar pain involving the right side. 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 She has no prior history of any blood clots. Patient is D-dimer is 0.52 which is an insignificant elevation. Explained to patient that her pain is consistent with musculoskeletal pain and minimal elevation of D-dimer is likely not significant. Explained the risks of CT with IV contrast. Patient states is comfortable with risk benefit analysisand would not like to have the CTA of lung. [KS] ED Course User Index [KS] Triny Nobles MD Kalugotla N Shivaram, MD * Andra Dyer RN - 08/03/2023 3:33 PM CDT Pt to ed room 11-4 with c/o left sided chest pain radiating into her back worse on expiration. 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 Pt denies any other s/s documented in this encounter Plan of Treatment Not on file documented as of this encounter Procedures Procedure Name Priority Date/Time Associated Diagnosis Comments XR CHEST 2 VIEWS STAT 08/03/2023 4:47 PM CDT POCT URINE HCG () STAT 08/03/2023 4:08 PM CDT TROPONIN I, HIGH SENSITIVITY (HSTRP) STAT 08/03/2023 4:04 PM CDT CBC WITH AUTO DIFFERENTIAL STAT 08/03/2023 4:04 PM CDT D-DIMER STAT 08/03/2023 4:04 PM CDT CMP (COMPREHENSIVE METABOLIC PANEL) STAT 08/03/2023 4:04 PM CDT COMPLETE BLOOD COUNT (CBC) WITH DIFF STAT 08/03/2023 4:04 PM CDT EKG 12 LEAD STAT 08/03/2023 3:55 PM CDT documented in this encounter Results * XR CHEST 2 VIEWS (08/03/2023 4:47 PM CDT) Anatomical Region Laterality Modality Chest N/A Digital Radiogra phy 08/03/2023 4:55 PM CDT Impressions 08/03/2023 4:58 PM CDT IMPRESSION: No acute cardiopulmonary abnormality. Narrative 08/03/2023 4:58 PM CDT EXAM DESCRIPTION: XR CHEST 2 VIEWS REASON FOR STUDY: ??c/o left sided chest pain radiating into her back worse on expiration. 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 ?? TECHNIQUE: PA and lateral ??radiographic view(s) of the chest. COMPARISON: None. FINDINGS: LUNGS: ??No focal opacity, pleural effusion, or pneumothorax. ?? HEART/MEDIASTINUM: ??Cardiac silhouette normal in size. Mediastinal and hilar contours appear normal. LINES/TUBES: ??None. BONES: ??No acute osseous abnormality. THIS IS AN ELECTRONICALLY VERIFIED FINAL REPORT 08/03/2023 4:55 PM - Electronically signed by ??Tanvir Jones M.D., M.D., D.O. MW: [id number] D: ??08/03/2023 4:55 PM T: ??08/03/2023 4:55 PM Report ID: [id number] Reading Location: ??[id number] Procedure Note Gregory Ferrer, DO - 08/03/2023 EXAM DESCRIPTION: XR CHEST 2 VIEWS REASON FOR STUDY: c/o left sided chest pain radiating into her back worse on expiration. 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 TECHNIQUE: PA and lateral radiographic view(s) of the chest. COMPARISON: None. FINDINGS: LUNGS: No focal opacity, pleural effusion, or pneumothorax. HEART/MEDIASTINUM: Cardiac silhouette normal in size. Mediastinal and hilar contours appear normal. LINES/TUBES: None. BONES: No acute osseous abnormality. THIS IS AN ELECTRONICALLY VERIFIED FINAL REPORT 08/03/2023 4:55 PM - Electronically signed by Tanvir Jones M.D., M.D., D.O. MW: [id number] Report ID: [id number] Reading Location: [id number] IMPRESSION: No acute cardiopulmonary abnormality. us Triny Nobles MD IMG DIAGNOSTIC ORDERABLE S Final Result * POCT Urine HCG () (08/03/2023 4:08 PM CDT) Pathologist [facility] POC URINE Negative POC URINE CONTROL Dynamo Repairer Pass Urine 08/03/2023 4:08 PM CDT us Triny Nobles MD POINT OF CARE TESTING (M ANUAL) Final Result * (ABNORMAL) D-DIMER [id number] (08/03/2023 4:04 PM CDT) Pathologist [facility] D DIMER 0.52(H) <0.50 mcg/mL FEU 08/03/2023 4:42 PM CDT [facility] Blood Venipuncture / Unknown 08/03/2023 4:04 PM CDT 08/03/2023 4:33 PM CDT Narrative [facility] - 08/03/2023 4:42 PM CDT The FDA has approved this method to exclude the diagnosis of DVT and/or PE at the cutoff value of <0.50 mcg/mL FEU. us Triny Nobles MD HEMATOLOGY ORDERABLES Fi nal Result [facility] [address] [place] [address] * (ABNORMAL) CBC with Auto Differential (08/03/2023 4:04 PM CDT) WBC 14.60(H) 4.00 - 12.00 10(3)/mcL 08/03/2023 4:17 PM CDT [facility] RBC 4.38 3.80 - 5.30 10(6)/mcL 08/03/2023 4:17 PM CDT [facility] HEMOGLOBIN (HGB) 12.2 12.0 - 15.8 g/dL 08/03/2023 4:17 PM CDT [facility] HEMATOCRIT (HCT) 37.8 36.0 - 47.0 % 08/03/2023 4:17 PM CDT [facility] MCV 86.3 82.0 - 96.0 fL 08/03/2023 4:17 PM CDT [facility] MCH 27.9 26.0 - 34.0 pg 08/03/2023 4:17 PM CDT [facility] MCHC 32.3 31.0 - 36.0 g/dL 08/03/2023 4:17 PM CDT [facility] PLATELET COUNT 394 140 - 440 10(3)/mcL 08/03/2023 4:17 PM CDT [facility] RDW 12.2 11.8 - 15.5 % 08/03/2023 4:17 PM CDT [facility] MPV 9.8 9.7 - 12.4 fL 08/03/2023 4:17 PM CDT [facility] NEUTROPHILS 71.1 47.0 - 73.0 % 08/03/2023 4:17 PM CDT [facility] LYMPHOCYTES 22.4 18.0 - 42.0 % 08/03/2023 4:17 PM CDT [facility] MONOCYTES 4.7 4.0 - 12.0 % 08/03/2023 4:17 PM CDT [facility] EOSINOPHILS 1.5 0.0 - 5.0 % 08/03/2023 4:17 PM CDT [facility] BASOPHILS 0.3 0.0 - 1.0 % 08/03/2023 4:17 PM CDT [facility] ABSOLUTE NEUTROPHILS 10.38(H) 1.60 - 7.70 10(3)/mcL 08/03/2023 4:17 PM CDT [facility] ABSOLUTE LYMPHOCYTES 3.27(H) 1.30 - 3.20 10(3)/mcL 08/03/2023 4:17 PM CDT [facility] ABSOLUTE MONOCYTES 0.68 0.20 - 1.00 10(3)/mcL 08/03/2023 4:17 PM CDT [facility] ABSOLUTE EOSINOPHIL 0.22 0.00 - 0.40 10(3)/mcL 08/03/2023 4:17 PM CDT [facility] ABSOLUTE BASOPHILS 0.05 0.00 - 0.10 10(3)/mcL 08/03/2023 4:17 PM CDT [facility] NRBC PER 100 WBC 0 08/03/20 4:17 PM CDT [facility] Blood Venipuncture / Unknown 08/03/2023 4:04 PM CDT 08/03/2023 4:12 PM CDT Triny Nobles MD HEMATOLOGY ORDERABLES Fi nal Result Performing Organization Address City/[facility] Co de Phone Number [facility] [address] [place] [address] * TROPONIN I, HIGH SENSITIVITY (HSTRP) (08/03/2023 4:04 PM CDT) [facility] TROPONIN I, HIGH SENSITIVITY- FRY <3 <=14 ng/L 08/03/2023 5:18 PM CDT [facility] Comment: High-sensitivity troponin I results are reported in ng/L making the result appear to be 1,000 times higher than the contemporary troponin I value which is reported in ng/ml. Results from [facility]. Blood Venipuncture / Unknown 08/03/2023 4:04 PM CDT 08/03/2023 4:12 PM CDT Triny Nobles MD CHEMISTRY ORDERABLES Fin al Result Performing Organization Address [facility] Co de Phone Number [facility] [address] [place] [address] * (ABNORMAL) CMP (Comprehensive Metabolic Panel) (08/03/2023 4:04 PM CDT) [facility] SODIUM 134(L) 136 - 145 mmol/L 08/03/2023 4:40 PM CDT [facility] POTASSIUM 3.4(L) 3.5 - 5.1 mmol/L 08/03/2023 4:40 PM CDT [facility] CHLORIDE 105 98 - 107 mmol/L 08/03/2023 4:40 PM CDT [facility] CO2, VENOUS 21(L) 22 - 30 mmol/L 08/03/2023 4:40 PM CDT [facility] ANION GAP 11.4 <18.0 mmol/L 08/03/2023 4:40 PM CDT [facility] GLUCOSE 93 70 - 99 mg/dL 08/03/2023 4:40 PM CDT [facility] BUN 8 5 - 18 mg/dL 08/03/2023 4:40 PM CDT [facility] CREATININE, BLOOD 0.74 0.60 - 1.00 mg/dL 08/03/2023 4:40 PM CDT [facility] BUN/CREATININE RATIO 11(L) 12 - 20 ratio 08/03/2023 4:40 PM CDT [facility] TOTAL PROTEIN 6.7 6.3 - 8.2 g/dL 08/03/2023 4:40 PM CDT [facility] ALBUMIN 3.4(L) 3.5 - 5.0 g/dL 08/03/2023 4:40 PM CDT [facility] A/G RATIO 1.0 1.0 - 2.2 08/03/2023 4:40 PM CDT [facility] CALCIUM 8.7 8.7 - 10.5 mg/dL 08/03/2023 4:40 PM CDT [facility] T BILI 0.3 0.2 - 1.2 mg/dL 08/03/2023 4:40 PM CDT [facility] SGOT (AST) 21 5 - 34 U/L 08/03/2023 4:40 PM T [facility] SGPT (ALT) 31 0 - 55 U/L 08/03/2023 4:40 PM CDT [facility] ALKALINE PHOSPHATASE 65 40 - 150 U/L 08/03/2023 4:40 PM CDT [facility] GFR, ESTIMATED >60 >=60 08/03/2023 4:40 PM CDT [facility] Comment: Creatinine Clearance is the preferred criteria for selecting drug dose adjustments in renally impaired patients. ??The GFR is provided as additional pertinent clinical information. GFR is reported in mL/min/1.73 sq m. Calculation based on the Chronic Kidney Disease Epidemiology Collaboration (CKD- EPI) equation refit without adjustment for race. GFR, EST. >60 >=60 023 4:40 PM CDT [facility] GFR, EST. NONAFRICAN >60 >=60 08/03/2023 4:40 PM CDT [facility] Blood Venipuncture / Unknown 08/03/2023 4:04 PM CDT 08/03/2023 4:12 PM CDT us Triny Nobles MD CHEMISTRY ORDERABLES Fin al Result Performing Organization Address City/[facility]/ZIP Co de Phone Number [facility] [address] [facility] [place] [address] * EKG 12 LEAD (08/03/2023 3:55 PM CDT) Ventricular Rate 71 BPM EXTERNAL EKG Atrial Rate 71 BPM EXTERNAL EKG P-R Interval 156 ms EXTERNAL EKG QRS Duration 90 ms EXTERNAL EKG Q-T Duration 422 ms EXTERNAL EKG QTC CALCULATION 458 ms EXTERNAL EKG P [place] 30 degrees EXTERNAL EKG R [place] 35 degrees EXTERNAL EKG T [place] 14 degrees EXTERNAL EKG 08/03/2023 3:55 PM CDT Impressions EXTERNAL EKG - 08/04/2023 11:21 AM CDT Normal sinus rhythm Nonspecific T wave abnormality Abnormal ECG No previous ECGs available Confirmed by Jg Partida ([id number]) on 08/04/2023 11:21:03 AM Narrative Procedure Note Jg Abdullahi MD - 08/04/2023 IMPRESSION: Normal sinus rhythm Nonspecific T wave abnormality Abnormal ECG No previous ECGs available Confirmed by Jg Pratida ([id number]) on 08/04/2023 11:21:03 AM us Triny Nobles MD IMG ECG ORDERABLES Final Result Performing Organization Address City/[facility]/ZIP Co de Phone Number EXTERNAL EKG documented in this encounter Visit Diagnoses Diagnosis Nonspecific chest pain- Primary documented in this encounter Administered Medications Inactive Administered Medications - up to 3 most recent administrations Medication Order MAR Action Action Date Dose Rate Site traMADol (ULTRAM) tablet 50 mg 50 mg, Oral, ONCE, 1 dose, On 08/03/23 at 1700 Given 08/03/2023 4:55 PM CDT 50 mg documented in this encounter Active and Recently Administered Medications Times are shown in CDT. Scheduled Medication Order 08/01/2023 08/02/2023 08/03/2023 traMADol (ULTRAM) tablet 50 mg (COMPLETED) 50 mg, Oral, ONCE, 1 dose, On 08/03/23 at 1700 1655 (Given - Provid er: Fahad Garcia RN) documented in this encounter Additional Health Concerns Assessment Noted Time PHQ-9 Depression Total Score: 3 04/10/20 23 12:00 PM CDT documented as of this encounter Care Teams Welding Machine Assembler Relationship Specialty Start Date End Date Charito Tillman PAC [address] [place], [place] [address] PCP - General Physician Sheet Metal Helper 07/17/22 documented as of this encounter
--- OUTSIDE RECORDS SUMMARY | 2024-11-10 05:01 | XMS_ITS | Encounter Summary ---
Author Organization [facility] Care Team Providers Care Wireless Operator Name Role Phone Charito Tillman PAC Primary Care Pro vider Encounter Details Date Type Department Care Team (Latest Contact Info) Description 03/03/2024 Travel Social History Tobacco Use Types Packs/Day Years Used Date Smoking Tobacco: Never Smokeless Tobacco: Never Alcohol Use Standard Drinks/Week Comments Yes 0 (1 standard drink = 0.6 oz pur e alcohol) [facility] Utilities Answer Date Recorded In the past 12 months has [employer], gas, oil, or water company threatened [...] week 03/03/2024 How often do you attend [facility] or jew services? Patient declined 03/03/2024 Do you belong to any clubs o r organizations such as bahai groups, unions, fraternal or athletic groups, or [...] Total Score - Questions 1-9 3 06/2023 [facility] - Occupational Stress Questionnaire Answer Date [...] place to sleep or slept in a jail (including now)? No 03/03/2024 Education Answer Date [...] on file documented as of this encounter Functional Status * Audit-C Score Answer Date of Assessment Author 3 03/03/2024 1:47 PM CDT [facility] * Within the last year, have you been humiliated or emotionally abused in other ways by your partner or ex-partner? Answer Date of Assessment Author No 03/03/2024 1:47 PM CDT [facility], [facility] * Within the last year, have you been afraid of your partner or ex-partner? Answer Date of Assessment Author No 03/03/2024 1:47 PM CDT [facility], [facility] * Within the last year, have you been raped or forced to have any kind of sexual activity by your partner or ex-partner? Answer Date of Assessment Author No 03/03/2024 1:47 PM CDT [facility], [facility] * Within the last year, have you been kicked, hit, slapped, or otherwise physically hurt by your partner or ex-partner? Answer Date of Assessment Author No 03/03/2024 1:47 PM CDT [facility], [facility] * Q1: How often do you have a drink containing alcohol? Answer Date of Assessment Author Monthly or less 03/03/2024 1:47 PM CDT [facility], [facility] * Q2: How many drinks containing alcohol do you have on a typical day when you are drinking? Answer Date of Assessment Author 3 or 4 03/03/2024 1:47 PM CDT [facility], [facility] * Q3: How often do you have six or more drinks on one occasion? Answer Date of Assessment Author Less than monthly 03/03/2024 1:47 PM CDT [facility], [facility] documented as of this encounter Plan of Treatment Not on file documented as of this encounter Visit Diagnoses Not on filedocumented in this encounter Additional Health Concerns Assessment Noted Time PHQ-9 Depression Total Score: 3 04/10/20 23 12:00 PM CDT documented as of this encounter Care Teams Wireless Operator Relationship Specialty Start Date End Date Charito Tillman PAC [address] [place] [address] PCP - General Physician Technical Service Specialist 07/17/22 documented as of this encounter
--- OUTSIDE RECORDS SUMMARY | 2024-11-10 05:01 | XMS_ITS | Encounter Summary ---
Author Organization [facility] Address [address] [place] [address] Phone Care Team Providers Care Tree Girdler Name Role Phone Charito Tillman PAC Primary Care Pro vider Reason for Visit * Reason Onset Date Comments Advice Only 03/06/2023 Encounter Details Date Type Department Care Team (Late st Contact Info) Description 03/06/2023 Telephone [facility] - [place] [address] [facility] [place] [id number] Charito Tillman, [facility] [address] [place] [address] Advice Only Social History Tobacco Use Types Packs/Day Years Used Date Smoking Tobacco: Never Smokeless Tobacco: Never Alcohol Use Standard Drinks/Week Comments Yes 0 (1 standard drink = 0.6 oz pur e alcohol) PHQ-2 Answer Date Recorded Total Score - Questions 1-9 3 06/2023 Sexually Active Control Partners Comments Yes Comments Unknown Sex and Gender Information Value Date Recorded Sex Assigned at Not on file Legal Sex Female 11:33 PM CDT Gender Identity Not on file Sexual Orientation Not on file documented as of this encounter Miscellaneous Notes * Telephone Encounter - Vania Gutierrez RN - 03/07/2023 1:23 PM CDT Spoke with pt about symptoms and pt states everything has resolved for about the last 24 hours. Shestates that when she was having these issues previously there was quite a bit of blood in the toilet but this was more just bleeding when she wiped after bowel movements. Pt states she has had issueswith hemorrhoids as well and thinks this is what was causing issues. Pt does not want to be seen in the ED as of now, but pt instructed to be seen in the ED if any more bleeding. Pt verbalizes understanding. . Routing to provider as FYI * Telephone Encounter - Charito Tillman PAC - 03/07/2023 8:20 AM CDT She needs to be sent to the ER for this * Telephone Encounter - Vania Gutierrez RN - 03/07/2023 8:18 AM CDT Unable to reach pt, left voicemail to call back * Telephone Encounter - Angelica Garcia CMA - 03/06/2023 4:36 PM CDT Patient says she had diarrhea yesterday and then she bleed bright red. Then today she had one regular BM and one diarrhea and she bleed bright red afterwards. She does have IBS. She would like for someone to call her back about her bleeding. Call back [phone] documented in this encounter Plan of Treatment Not on file documented as of this encounter Visit Diagnoses Not on filedocumented in this encounter Care Teams Tree Girdler Relationship Specialty Start Date End Date Charito Tillman PAC [address] [place] [address] PCP - General Physician Extrusion Operator 07/17/22 documented as of this encounter
--- OUTSIDE RECORDS SUMMARY | 2024-11-10 05:01 | XMS_ITS | Encounter Summary ---
Author Organization [facility] Address [address] [place] [address] Phone Care Team Providers Care Advance Seal Delivery System Maintainer Name Role Phone Tina Tillmanney Colette PAC Primary Care Pro vider Reason for Visit * Reason Onset Date Comments No Show 11/11/2022 NCNS Encounter Details Date Type Department Care Team (Late st Contact Info) Description 11/11/2022 Telephone [facility] Re[facility] at [facility] [address] [place] [address] Nitza Bhakta, PT [place] No Show (NCNS) Social History Tobacco Use Types Packs/Day Years [...] Coronavirus/COVID-19? No / Unsure 11/07/2022 12:30 PM MONOGRAM OPERATOR documented as of this encounter Miscellaneous Notes * Telephone Encounter - Nitza Bhakta, PT - 11/11/2022 2:04 PM MONOGRAM OPERATOR The patient did not show for her appointment, family emergency. Educated that if she missed anymore, she will be discharged from therapy. NITZA BHAKTA, PT GRAM OPERATOR documented in this encounter Plan of Treatment Not on file documented as of this encounter Visit Diagnoses Not on filedocumented in this encounter Care Teams Advance Seal Delivery System Maintainer Relationship Specialty Start Date End Date Charito Tillman, [facility] [address] [place] [address] PCP - General Physician Conference Center Coordinator 07/17/22 documented as of this encounter
--- OUTSIDE RECORDS SUMMARY | 2024-11-10 05:01 | XMS_ITS | Encounter Summary ---
Author Organization [facility] Address [address] [facility] [place] [place] [address] Phone Care Team Providers Care Pattern Scratcher Name Role Phone Charito Tillman PAC Primary Care Pro vider Reason for Visit * Reason Onset Date Comments Medication Refill 08/14/2022 Encounter Details Date Type Department Care Team (Late st Contact Info) Description 08/14/2022 Refill [facility] - [place] [address] [id number] Charito Tillman, [facility] [address] [place] [address] Medication Refill Social History Tobacco Use Types Packs/Day Years [...] Telephone Encounter - Vania Gutierrez RN - 08/14/2022 2:00 PM CDT Medication failed the protocol, provider to review and approve the medication order if appropriate. Requested Prescriptions Pending Prescriptions Disp Refills busPIRone (BUSPAR) 5 MG Tablet 180 Tablet 1 Sig: Take 1 Tablet by mouth 2 times daily. Buspirone (6 Month Refill Only) Protocol Failed - 08/14/2022 1:44 PM Failed - Patient has established therapy with Buspirone for at least 6 months Passed - No test in the past 12 months or most recent test was negative Passed - No active on record Passed - Visit with relevant provider in past 6 months or upcoming 90 days Recent Visits Date Type Provider Dept 07/22/22 Office Visit Charito Tillman, [facility] Showing recent visits within past 182 days and meeting all other requirements Future Appointments Date Type Provider Dept 08/19/22 Appointment Charito Tillman, [facility] Showing future appointments within next 90 days and meeting all other requirements Passed - Has an encounter in the past 6 months with a depression or anxiety visit diagnosis * Telephone Encounter - Vania Gutierrez RN - 08/14/2022 1:43 PM CDT Pt requesting 90 day prescription documented in this encounter Plan of Treatment Not on file documented as of this encounter Visit Diagnoses Not on filedocumented in this encounter Additional Health Concerns Infection Onset Date Last Indicated Resolved Time COVID - 19 08/19/2022 08/19/2022 08/29/2022 12:1 6 AM CDT Influenza 08/19/2022 08/19/2022 08/26/2022 12:1 6 AM CDT documented as of this encounter Care Teams Pattern Scratcher Relationship Specialty Start Date End Date Charito Tillman PAC [address] [place] [address] PCP - General Physician Overhead Foreman 07/17/22 documented as of this encounter
--- OUTSIDE RECORDS SUMMARY | 2024-11-10 05:01 | XMS_ITS | Encounter Summary ---
Author Organization [facility] Address [address] [place] [address] Phone Care Team Providers Care Rotary Driller Helper Name Role Phone Charito Tillman PAC Primary Care Pro vider Encounter Details Date Type Department Care Team (Late st Contact Info) Description 03/08/2024 Telephone [facility] - Internal Medicine - [place] [address] [place] [address] Charito Tillman, PAC [address] [place] [address] Social History Tobacco Use Types Packs/Day Years Used Date Smoking Tobacco: Never Smokeless Tobacco: Never Alcohol Use Standard Drinks/Week Comments Yes 0 (1 standard drink = 0.6 oz pur e alcohol) [facility] Utilities Answer Date Recorded In the past 12 months has [employer], gas, oil, or water [employer] threatened to shut off services in your home? No 03/03/2024 Social Connection and Isolation Panel [NHANES] A nswer Date Recorded In a typical week, how many times do you talk on the phone with family, friends, or neighbors? Three times a week 03/03/2024 How often do you get togethe r with friends or relatives? Once a week 03/03/2024 How often do you attend [facility] or sikhism services? Patient declined 03/03/2024 Do you belong to any clubs o r organizations such as taoism groups, unions, fraternal or athletic groups, or [...] Total Score - Questions 1-9 3 06/2023 [facility] - Occupational Stress Questionnaire Answer [...] place to sleep or slept in a fpc (including now)? No 03/03/2024 Education Answer Date [...] Telephone Encounter - Vania Gutierrez RN - 03/08/2024 1:55 PM CDT Pt aware and verbalizes understanding * Telephone Encounter - Vania Gutierrez RN - 03/08/2024 12:11 PM CDT Pt aware and verbalizes understanding Pt asking if there is any other recommendations you have at this time other than PT? States nothing has been helping as far as OTC meds and job makes pain worse, works at [employer] * Telephone Encounter - Vania Gutierrez RN - 03/08/2024 12:11 PM CDT ----- Message from Charito Tillman, PAC sent at 03/05/2024 1:30 PM CDT ----- Mild degeneration * Telephone Encounter - Rajan February - 03/08/2024 8:35 AM CDT Patient called requesting her x-ray results to be explained to her, if she does not answer because she is at work she asking if you can please leave a detailed message documented in this encounter Plan of Treatment Not on file documented as of this encounter Visit Diagnoses Not on filedocumented in this encounter Additional Health Concerns Assessment Noted Time PHQ-9 Depression Total Score: 3 04/10/20 23 12:00 PM CDT documented as of this encounter Care Teams Rotary Driller Helper Relationship Specialty Start Date End Date Charito Tillman, [facility] [address] [place] [address] PCP - General Physician Channeler Outsole 07/17/22 documented as of this encounter
--- OUTSIDE RECORDS SUMMARY | 2024-11-10 05:01 | XMS_ITS | Encounter Summary ---
Author Organization [facility] Care Team Providers Care University Registrar Name Role Phone Charito Tillman PAC Primary Care Pro vider Encounter Details Date Type Department Care Team (Latest Contact Info) Description 09/03/2022 Travel Social History Tobacco Use Types Packs/Day [...] on filedocumented in this encounter Care Teams University Registrar Relationship Specialty Start Date End Date Charito Tillman PAC [address] [place] [address] PCP - General Physician Sap Gatherer 07/17/22 documented as of this encounter
--- OUTSIDE RECORDS SUMMARY | 2024-11-10 05:01 | XMS_ITS | Encounter Summary ---
Author Organization [facility] Address [address] [facility] [address] Phone Care Team Providers Care Automatic Driller And Reamer Name Role Phone Charito Tillman PAC Primary Care Pro vider Reason for Visit * PT/OT/ST (Routine) - Closed Specialty Diagnoses / Procedures Referred By Yeny t Referred To Contact Rehabilitation Diagnoses Pelvic and perineal pain Zoya Jeffries APRN, OPENSTACK DEVELOPER Nishant [facility] [place] [address] Phone: tel: fax: [facility] at [facility] [address], [place] [address] [address] Phone: tel: fax: Referral ID Status Reason Start Date Expiration Date Visits Re quested Visits Authorized [id number] Closed 1 120 Encounter Details Date Type Department Care Team (Late st Contact Info) Description 08/12/2022 1:15 PM CDT Physical Therapy [facility] at [facility] [address] [place] [address] Zoya Jeffries APRN, OPENSTACK DEVELOPER [address] [place] [address] Nitza Bhakta, PT [place] Pelvic pain (Primary [...] of Care - Nitza Bhakta, PT - 08/12/2022 1:15 PM CDT Treatment Note - Electronically signed by: NITZA BHAKTA, PT August 12, 2022 SUBJECTIVE: The patient reports that she did a bladder log. She reports that she has had a new pain, reporting that she is unsure if she pulled a muscle, reporting that she has increased pain on her right side right above her hip bone. She reports that every time she goes pee, it feels like a muscle cramp, reporting that if she tries to go pee, she sits down, the pain gets more intense and then when she pees, the pain goes away. She reports that when she walks and has a bowel movement, she gets the right side pain. She reports that she is also hyper aware of her peeing now too since writing the log. The patient reports that she urinates between 4-8 times. She reports that the day that she urinated 8 times, 5 of them were with bowel movements. OBJECTIVE Pelvic Floor: Pelvic Floor Exam: Informed consent obtained for internal evaluation and treatment. Discussed with patient evaluation and treatment techniques for internal pelvic floor structures. Patient verbalizes understanding and consent for internal evaluation and treatment. Pt declined to have witness present during time of assessment. External Visual Exam: Voluntary Contraction: Present Voluntary Relaxation: Present Involuntary Contraction: Present Involuntary Relaxation: Present Digital Exam: Power: 4/5 Endurance: 3 Elevation: Present Pain: Tenderness throughout her pelvic floor, worse on obterator internus JOSH but generally worse with deep pressure, as well as slight muscle spasms at the introdus Sensation: WFL TREATMENT: Refer to PT OP Rehab Therapy Treatment flowsheet for details/minutes. Patient was educated on all previous education, as well as the findings of her objective measures, with focus being on her restrictions found during examination. Educated on constipation being possible even with her diarrhea. Patient educated on her pelvic wand and plans to purchase prior to her next appointment, where she will taught how to use it for muscle releases, as well as stretching of the introdus. Educated on the plan to add in more hip stability as well next visit. Patient asked about her boyfriend coming to her next appointment and was educated that he is welcome if she is comfortable and would like him to come. Educated on the manual therapy performed this date and how she can perform it at home to release tension in the abdominal cavity and helping with bowel movements. Patient given a handout of the pelvic wand this date for purchase. She was also educated on being sure to urinate at least every 2-3 hours, avoiding waiting 4 hours, to urinate at least 6 times per day, as well as continue to release the tension throughout her pelvic floor. Manual: Soft tissue work throughout her abdominal cavity, as well as right psoas release. ASSESSMENT: Other Details: Patient demonstrates gradual progress as evidenced by 1st treatment following evaluation. The patient is doing well with releases her pelvic floor throughout the day. She was found to have a good muscle contraction and active relaxation; however, she was found to have increased tension of her pelvic floor during palpation. She also continues to have increased restrictions found throughout her abdominal cavity as well. Patient plans to buy a pelvic wand before her next appointment, as well as plan to add in hip stability exercises, as well as teach her boyfriend how to perform abdominal massage and pelvic wand work if he comes per patient request. Patient would benefit from continued skilled interventions, [...] seen for the following interventions: Manual Therapy (77359), Therapeutic Exercise (93876), Therapeutic Activities (61001), NeuromuscularRe-education (03100), Self Care/Home Management Training (42521), Gait Training (75541), Patient Education, Home Exercise Program Education, Pelvic [...] organs documented in this encounter Care Teams Automatic Driller And Reamer Relationship Specialty Start Date End Date Charito Tillman PAC [address] [place] [address] PCP - General Physician Breaster 07/17/22 documented as of this encounter
--- OUTSIDE RECORDS SUMMARY | 2024-11-10 05:01 | XMS_ITS | Encounter Summary ---
Author Organization [facility] Address [address] [place] [address] Phone Care Team Providers Care Tube Handler Name Role Phone Charito Tillman PAC Primary Care Pro vider Reason for Visit * Reason Onset Date Comments No Show 11/18/2022 Encounter Details Date Type Department Care Team (Late st Contact Info) Description 11/18/2022 Telephone [facility] Re[facility] at [facility] [address] [place] [address] Nitza Bhakta, PT [place] No Show Social History Tobacco Use Types Packs/Day Years [...] Coronavirus/COVID-19? No / Unsure 11/14/2022 12:32 PM KILN LABOURER documented as of this encounter Miscellaneous Notes * Telephone Encounter - Nitza Bhakta, PT - 11/18/2022 2:06 PM KILN LABOURER The patient did not show for therapy this date due to forgetting. Educated that she will be discharged this date due to attendance and she can return with a new referral after 6 week wait. NITZA BHAKTA, PT LABOURER documented in this encounter Plan of Treatment Not on file documented as of this encounter Visit Diagnoses Not on filedocumented in this encounter Care Teams Tube Handler Relationship Specialty Start Date End Date Charito Tillman, [address] [address] [place] [address] PCP - General Physician Lei Seller 07/17/22 documented as of this encounter
--- OUTSIDE RECORDS SUMMARY | 2024-11-10 05:01 | XMS_ITS | Encounter Summary ---
Author Organization [facility] Address [address] [place] [address] Phone Care Team Providers Care Accounts Payable Or Receivable Clerk Name Role Phone Charito Tillman PAC Primary Care Pro vider Reason for Visit * Reason Onset Date Comments No Show 10/22/2022 1st [facility] Encounter Details Date Type Department Care Team (Late st Contact Info) Description 10/22/2022 Telephone [facility] Rehab at [facility] [address] [place] [address] Nitza Bhakta, PT [place] No Show (1st NCNS) Social History Tobacco Use Types Packs/Day [...] Coronavirus/COVID-19? No / Unsure 10/10/2022 1:10 PM EYEGLASS LENS CUTTER documented as of this encounter Miscellaneous Notes * Telephone Encounter - Nitza Bhakta, PT - 10/22/2022 10:11 AM EYEGLASS LENS CUTTER The patient did not show for her appointment this date. Called and left a voicemail, offering her an appointment tomorrow if able. NITZA BHAKTA, PT LASS LENS CUTTER documented in this encounter Plan of Treatment Not on file documented as of this encounter Visit Diagnoses Not on filedocumented in this encounter Care Teams Accounts Payable Or Receivable Clerk Relationship Specialty Start Date End Date Charito Tillman, [address] [place] [address] PCP - General Physician Architect Intern 07/17/22 documented as of this encounter
--- OUTSIDE RECORDS SUMMARY | 2024-11-10 05:02 | XMS_ITS | Encounter Summary ---
Author Organization [facility] Care Team Providers Care Precision Filer Hand Name Role Phone Charito Tillman PAC Primary Care Pro vider Encounter Details Date Type Department Care Team (Latest Contact Info) Description 07/22/2022 Travel Social History Tobacco Use Types Packs/Day [...] suspected to have Coronavirus/COVID-19? No / Unsure 07/22/2022 12:31 PM CDT documented as of this encounter Plan of Treatment Not on file documented as of this encounter Visit Diagnoses Not on filedocumented in this encounter Care Teams Precision Filer Hand Relationship Specialty Start Date End Date Charito Tillman PAC [address] [place] [address] PCP - General Physician Computer Systems Consultant 07/17/22 documented as of this encounter
--- OUTSIDE RECORDS SUMMARY | 2024-11-10 05:02 | XMS_ITS | Encounter Summary ---
Author Organization [facility] Address [address] [facility] [address] Phone Care Team Providers Care Cloth Colors Examiner Name Role Phone Charito Tillman PAC Primary Care Pro vider Reason for Referral * Consult, Test & Initiate Treatment (Routine) - Closed Specialty Diagnoses / Procedures Referred By Contac t Referred To Contact Diagnoses Anxiety Attention deficit hyperactivity disorder (ADHD), unspecified ADHD type Charito Tillman, PAC [address] [place] [address] Phone: tel: fax: [facility] [address] [place] [address] Phone: tel: fax: Referral ID Status Reason Start Date Expiration Date Visits Re quested Visits Authorized [id number] Closed 07/22/2022 1 1 Scheduling Instructions Mary Carmen is being referred to PSYCHE or other specialist in patient's insurance network for ADHD. See below for Mary Carmen's current medications, allergies and problem list. CURRENT MEDS: Current Outpatient Medications: cyclobenzaprine (FLEXERIL) 10 MG Tablet, TAKE 1 TABLET BY MOUTH TWICE A DAY NEEDED FOR 10 DAYS, Disp: , Rfl: Norethin Mariano-Eth Estrad-FE 1.5-30 MG-MCG Tablet, Take 1 Tablet by mouth daily., Disp: , Rfl: omeprazole (PriLOSEC) 20 MG CAPSULE DELAYED RELEASE, Take 20 mg by mouth daily., Disp: , Rfl: No current facility-administered medications for this visit. ALLERGIES: -- Ketorolac -- Vomiting -- Vomiting blood Vomiting blood PROBLEM LIST: There is no problem list on file for this patient. * Consult, Test & Initiate Treatment (Routine) - Canceled Specialty Diagnoses / Procedures Referred By Yeny celeste Referred To Contact Behavioral Health Diagnoses Depression, unspecified depression type Anxiety Charito Tillman PAC [address] [place] [address] Phone: tel: fax: Irene Clark, [facility] [address] [place] [address] Phone: tel: fax: Referral ID Status Reason Start Date Expiration Date V isits Requested Visits Authorized [id number] Canceled 07/22/2022 1 1 Scheduling Instructions Mary Carmen is being referred for ADHD, depression, anxiety Please contact patient for scheduling questions or concerns. * Radiology Services (Routine) - Closed Specialty Diagnoses / Procedures Referred By Yeny celeste Referred To Contact Radiology Diagnoses Urgency incontinence Sensation of pressure in bladder area Cramp and spasm Procedures US PELVIS COMPLETE WITH TRANSVAGINAL Charito Tillman PAC [address] [place] [address] Phone: tel: fax: Referral ID Status Reason Start Date Expiration Date Visits Re quested Visits Authorized [id number] Closed 07/22/2022 1 1 Reason for Visit * Reason Comments Irritable Bowel Syndrome New patient sta rted last Friday dull Ache pain in side of vagina and in but took Muscle relaxer 20 min later got 2 stabbing pain in vagina kept having pressure feeling like UTI after medication kicked in everything relaxed . Called Gyno about issue Encounter Details Date Type Department Care Team (Late st Contact Info) Description 07/22/2022 12:45 PM CDT Office Visit [facility] - Internal Medicine - [place] [address] [place] [id number] Charito Tillman, PAC [address] [place] [id number] Urgency incontinence (Primary Dx); Sensation of pressure in bladder area; Cramp and spasm; Well adult exam; Depression, unspecified depression type; Anxiety; Attention deficit hyperactivity disorder (ADHD), unspecified ADHD type; Irritable bowel syndrome with diarrhea; HPV in female Discharge Disposition: Discharged to home or Selfcare [...] Reading Time Taken Comments Blood Pressure 108/80 07/22/2022 1:05 PM CDT Pulse 81 07/22/2022 1:05 PM CDT Temperature 36.8 ??C (98.3 ??F) 07/22/2022 1:05 PM CD T Respiratory Rate 12 07/22/2022 1:05 PM CDT Oxygen Saturation 100% 07/22/2022 1:05 PM CDT Inhaled Oxygen Concentration - - Weight 89.9 kg (198 lb 3.2 oz) 07/22/2022 1:05 P M CDT Height 160 cm (5' 3 ) 07/22/2022 1:05 PM CDT Body Mass Index 35.11 07/22/2022 1:05 PM CDT documented in this encounter Progress Notes * Sabina Díaz, RMA - 07/22/2022 12:45 PM CDT Mary Carmen Chen, 22 y.o., female is here for Irritable Bowel Syndrome (New patient started last Ache pain in side of vagina and in but took Muscle relaxer 20 min later got 2 stabbing pain invagina kept having pressure feeling like UTI after medication kicked in everything relaxed . CalledGyno about issue ) Medication Refills: Patient reports/denies need for medication refills. Orders Pended: no Requested Prescriptions No prescriptions requested or ordered in this encounter Home Medications Medication Sig Start Date End Date Taking? Authorizing Provider cyclobenzaprine (FLEXERIL) 10 MG Tablet TAKE 1 TABLET BY MOUTH TWICE A DAY NEEDED FOR 10 DAYS 07/17/22 Yes ProviderAshwin MD Norethin Mariano-Eth Estrad-FE 1.5-30 MG-MCG Tablet Take 1 Tablet by mouth daily. 08/07/20 Yes ProviderAshwin MD omeprazole (PriLOSEC) 20 MG CAPSULE DELAYED RELEASE Take 20 mg by mouth daily. 08/10/20 Yes ProviderAshwin MD There are no discontinued medications. I have reviewed the home medication list with the patient and have reconciled discrepancies. The list is accurate to the best of my knowledge. Smoking Status: Social History Tobacco Use ??? Smoking status: Never Smoker ??? Smokeless tobacco: Never Used Vaping Use ??? Vaping Use: Every day ??? Substances: Nicotine, THC, Flavoring ??? Devices: Disposable Substance Use Topics ??? Alcohol use: Yes ??? Drug use: Yes Types: Marijuana Smoking Cessation Counseling Given: no Health Care Maintenance: Health Maintenance Due Topic Date Due ??? Hepatitis B Immunization (1 of 3 - 3-dose series) Never done ??? SARS-COV-2 Immunization (1) Never done ??? DTaP/Tdap/Td Immunization (1 - Tdap) Never done ??? Human Papillomavirus (HPV) Immunization (1 - 2-dose series) Never done ??? Pap Smear Never done ??? Influenza Immunization (1) Never done Orders Pended: no The following BPA's have been addressed with the patient today: BMI, Flu, TDAP, Pneumonia, Smoking, Depression, Fall Risk, Nutrition, Advanced Care Planning and HCC * Charito Tillman, PAC - 07/22/2022 12:45 PM CDT Chief Complaint: Chief Complaint Patient presents with ??? Irritable Bowel Syndrome New patient started last Friday dull Ache pain in side of vagina and in but took Muscle relaxer 20min later got 2 stabbing pain in vagina kept having pressure feeling like UTI after medication kicked in everything relaxed . Called Gyno about issue Assessment/Plan: Diagnoses and all orders for this visit: Urgency incontinence - POCT UA AUTOMATED W/O MICRO Sensation of pressure in bladder area - POCT UA AUTOMATED W/O MICRO - POCT URINE HCG () Cramp and spasm - POCT URINE HCG () Other orders - Norethin Mariano-Eth Estrad-FE 1.5-30 MG-MCG Tablet; Take 1 Tablet by mouth daily. - cyclobenzaprine (FLEXERIL) 10 MG Tablet; TAKE 1 TABLET BY MOUTH TWICE A DAY NEEDED FOR 10 DAYS - omeprazole (PriLOSEC) 20 MG CAPSULE DELAYED RELEASE; Take 20 mg by mouth daily. transvag u/s F/u with ALGORITHM DESIGN ENGINEER Will need vag exam and updated PAP Can cont mm relaxer from ALGORITHM DESIGN ENGINEER as needed UA neg Urine preg neg F/u with GI for IBS OTC supportive care d/w pt UA today not significant Urine preg is neg Labs wihen fasting Preventive care d/w pt ADHD Anxiety Depression Refusing actual antidepressants Agreeable to trial of buspar Refer behave health Refer to psyche Subjective: Ms. Mary Carmen Chen is a 22 y.o. female here today for above. New patient Has had a few epidosdes of vaginal pain and pressure that start in the vaginal area and radiate into the rectal area Does have IBS D Is followed by GI Has ALGORITHM DESIGN ENGINEER and is seen yearly Has HPV ROS: Review of Systems Genitourinary: Positive for urgency. Vaginal pain Psychiatric/Behavioral: Positive for depression. Negative for suicidal ideas. The patient is nervous/anxious. All other systems reviewed and are negative. VITAL SIGNS: BP Readings from Last 3 Encounters: 07/22/22 108/80 Wt Readings from Last 3 Encounters: 07/22/22 198 lb 3.2 oz (89.9 kg) Vitals: 07/22/22 1305 BP: 108/80 BP Location: Left Arm BP Position: Sitting BP Cuff Size: Regular Pulse: 81 Resp: 12 Temp: 98.3 ??F (36.8 ??C) TempSrc: Temporal SpO2: 100% Weight: 198 lb 3.2 oz (89.9 kg) Height: 5' 3 (1.6 m) Body mass index is 35.11 kg/m??. PHYSICAL EXAM: Physical Exam Vitals reviewed. Constitutional: Appearance: Normal appearance. She is obese. HENT: Head: Normocephalic and atraumatic. Nose: Nose normal. Mouth/Throat: Mouth: Mucous membranes are moist. Eyes: Extraocular Movements: Extraocular movements intact. Pupils: Pupils are equal, round, and reactive to light. Cardiovascular: Rate and Rhythm: Regular rhythm. Heart sounds: Normal heart sounds. Pulmonary: Breath sounds: Normal breath sounds. Abdominal: Palpations: Abdomen is soft. Musculoskeletal: General: Normal range of motion. Skin: General: Skin [...] No resulted procedures found. FOLLOWUP: Follow-up Information No follow-ups on file. LOS Today Past medical, surgical, social and family history has been reviewed and updated as necessary. Medications and allergies has been reviewed and updated. I discussed all new medications and potential side effects or risks associated with them. Patient is to contact our office with any concerns. Patient instructions and educational materials were given to the patient. Patient (or patient financial services sales representative) demonstrates verbal understanding of instructions given. [...] PANEL) Lab Routine Well adult exam Expected: 07/25/2022 (Approximate), Expires: 08/21/2022 LIPID PANEL Lab Routine Well adult exam Expected: 07/25/2022 (Approximate), Expires: 08/21/2022 HEMOGLOBIN A1C W/ ESTIMATED GLUCOSE Lab Routine Well adult exam Expected: 08/29/2022 (Approximate), Expires: 10/31/2022 COMPLETE BLOOD COUNT (CBC) WITH DIFF Lab Routine Well adult exam Expected: 08/29/2022 (Approximate), Expires: 10/31/2022 THYROID STIMULATING HORMONE (TSH) Lab Routine Well adult exam Expected: 08/29/2022 (Approximate), Expires: 10/31/2022 Scheduled Referrals Name Type Priority Associated Diagnoses Orde r Schedule BEHAVIORAL HEALTH REFERRAL Outpatient Referral Routine Depression, unspecified depression type Anxiety Expected: 07/21/2023, Expires: 10/31/2023 EXTERNAL PSYCHIATRY REFERRAL Outpatient Referral Routine Anxiety Attention deficit hyperactivity disorder (ADHD), unspecified ADHD type Expected: 07/22/2022, Expires: 07/22/2023 documented as of this encounter Procedures Procedure Name Priority Date/Time Associated Diagnosis Comments POCT UA AUTOMATED W/O MICRO Routine 07/22/2022 1:00 PM CDT Urgency incontinence Sensation of pressure in bladder area POCT URINE HCG () Routine 07/22/2022 1:00 PM CDT Sensation of pressure in bladder area Cramp and spasm documented in this encounter Results * US PELVIS COMPLETE WITH TRANSVAGINAL (08/03/2022 11:52 AM CDT) Anatomical Region Laterality Modality Abdomen N/A Ultrasound 08/03/2022 1:05 PM CDT Impressions 08/03/2022 1:08 PM CDT IMPRESSION: ?? 1. ?? Essentially normal pelvic ultrasound. 2. ?? Normal appearance on more limited view of the bladder. ??Patient was unable to completely void prior to the transvaginal portion. Narrative 08/03/2022 1:08 PM CDT EXAM DESCRIPTION: ?? US PELVIS COMPLETE WITH TRANSVAGINAL REASON FOR STUDY: ?? Pain. ??Incontinence. ??Urge incontinence TECHNIQUE: Grayscale ultrasound of the pelvic contents was performed with ?? transabdominal and transvaginal ??transducer. ?? COMPARISON: ?? No prior. FINDINGS: UTERUS: The uterus demonstrates a normal echotexture in position measuring 6.9 x 2.7 x 4.6 cm. ENDOMETRIUM: The endometrium measures ?? 1.1 ??in thickness. RIGHT OVARY: The right ovary measures ?? 3.4 x 1.7 x 2.2 ??cm. ?? There is documentation of color Doppler flow in the right ovary. The right ovary appears unremarkable. LEFT OVARY: The left ovary measures ?? 3.2 x 1.6 x 2.6 ??cm. ?? There is documentation of color Doppler flow in the left ovary. ??The left ovary appears unremarkable. PELVIC FLUID: ?? There is no evidence of free fluid in the pelvis. OTHER: ?? More limited imaging of the bladder demonstrates no focal abnormality. ??After transabdominal imaging, the patient could not completely empty the bladder for transvaginal imaging. THIS IS AN ELECTRONICALLY VERIFIED FINAL REPORT 08/03/2022 1:05 PM - Electronically signed by ??Gregory Ramirez M.D. MJ: BRI D: ??08/03/2022 1:05 PM T: ??08/03/2022 1:05 PM Report ID: [id number] Reading Location: ??[id number] Procedure Note Gregory Ramirez MD - 08/03/2022 EXAM DESCRIPTION: US PELVIS COMPLETE WITH TRANSVAGINAL REASON FOR STUDY: Pain. Incontinence. Urge incontinence TECHNIQUE: Grayscale ultrasound of the pelvic contents was performed with transabdominal and transvaginal transducer. COMPARISON: No prior. FINDINGS: UTERUS: The uterus demonstrates a normal echotexture in position measuring 6.9 x 2.7 x 4.6 cm. ENDOMETRIUM: The endometrium measures 1.1 in thickness. RIGHT OVARY: The right ovary measures 3.4 x 1.7 x 2.2 cm. There is documentation of color Doppler flow in the right ovary. The right ovary appears unremarkable. LEFT OVARY: The left ovary measures 3.2 x 1.6 x 2.6 cm. There is documentation of color Doppler flow in the left ovary. The left ovary appears unremarkable. PELVIC FLUID: There is no evidence of free fluid in the pelvis. OTHER: More limited imaging of the bladder demonstrates no focal abnormality. After transabdominal imaging, the patient could not completely empty the bladder for transvaginal imaging. THIS IS AN ELECTRONICALLY VERIFIED FINAL REPORT 08/03/2022 1:05 PM - Electronically signed by Gregory Ramirez M.D. MJ: BRI Report ID: [id number] Reading Location: [id number] IMPRESSION: 1. Essentially normal pelvic ultrasound. 2. Normal appearance on more limited view of the bladder. Patient was unable to completely void prior to the transvaginal portion. Charito Tillman [facility] IMG US ORDERABLES Final Result * POCT URINE HCG () (07/22/2022 1:00 PM CDT) [facility] POC URINE Negative POC URINE CONTROL Gas Tender Pass Urine 07/22/2022 1:00 PM CDT Charito Tillman [facility] POINT OF CARE REJI TING (MANUAL) Final Result * POCT UA AUTOMATED W/O MICRO (07/22/2022 1:00 PM CDT) [facility] POC UA SPECIFIC GRAVITY 1.015 URINE PH 8.0 5.0 - 9.0 POC URINE LEUKOCYTES Negative Negative Malissa/uL POC URINE NITRITE Negative Negative POC URINE PROTEIN Negative Negative mg/dL POC URINE GLUCOSE Norm Negative, Norm mg/dL POC URINE KETONE Negative Negative mg/dL POC URINE UROBILINOGEN Norm Norm, 0.2 mg/dL, 1 mg/dL POC URINE BILIRUBIN Negative Negative mg/dL POC URINE BLOOD INSTRUMENT Negative Negative Andrew/uL POC URINE COLOR Light yellow POC URINE CLARITY Clear Urine 07/22/2022 1:00 PM CDT Charito Tillman PAC POINT OF CARE REJI TING (MANUAL) Final Result documented in this encounter Visit Diagnoses Diagnosis Urgency incontinence- Primary Urge incontinence Sensation of pressure in bladder area Other specified disorders of bladder Cramp and spasm Well adult exam Routine general medical examination at a health care facility Depression, unspecified depression type Anxiety Anxiety state, unspecified Attention deficit hyperactivity disorder (ADHD), unspecified ADHD type Irritable bowel syndrome with diarrhea Irritable bowel syndrome 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
--- OUTSIDE RECORDS SUMMARY | 2024-11-10 05:02 | XMS_ITS | Encounter Summary ---
Author Organization [facility] Address [address] [place] [address] Phone Care Team Providers Care Shelf Stocker Name Role Phone Charito Tillman PAC Primary Care Pro vider Reason for Referral * Radiology Services (Routine) - Closed Specialty Diagnoses / Procedures Referred By Sebastianac t Referred To Contact Radiology Diagnoses Urgency incontinence Sensation of pressure in bladder area Cramp and spasm Procedures US PELVIS COMPLETE WITH TRANSVAGINAL Charito Tillman, PAC [address] [place] [address] Phone: tel: fax: Referral ID Status Reason Start Date Expiration Date Visits Re quested Visits Authorized [id number] Closed 07/22/2022 1 1 Reason for Visit * Radiology Services (Routine) - Closed Specialty Diagnoses / Procedures Referred By Yeny celeste Referred To Contact Radiology Diagnoses Urgency incontinence Sensation of pressure in bladder area Cramp and spasm Procedures US PELVIS COMPLETE WITH TRANSVAGINAL Charito Tillman, PAC [address] [place] [address] Phone: tel: fax: Referral ID Status Reason Start Date Expiration Date Visits Re quested Visits Authorized [id number] Closed 07/22/2022 1 1 Encounter Details Date Type Department Care Team (Latest Contact Info) Description 08/03/2022 10:26 AM CDT - 08/03/2022 11:59 PM CDT Hospital Encounter [facility] [address] [place] [address] Charito Tillman, PAC [address] [place] [address] Discharge Disposition: Discharged to home or Selfcare [...] suspected to have Coronavirus/COVID-19? No / Unsure 08/03/2022 10:20 AM CDT documented as of this encounter Medications at Time of Discharge cyclobenzaprine (FLEXERIL) 10 MG Tablet TAKE 1 TABLET BY MOUTH TWICE A DAY NEEDED FOR 10 DAYS 07/17/2022 busPIRone (BUSPAR) 5 MG Tablet Take 1 Tablet by mouth 2 times daily. 60 Tablet 1 07/22/2022 08/14/2022 Norethin Mariano-Eth Estrad-FE 1.5-30 MG-MCG Tablet Take 1 Tablet by mouth daily. 08/07/2020 03/03/2024 omeprazole (PriLOSEC) 20 MG CAPSULE DELAYED RELEASE Take 20 mg by mouth daily. 08/10/2020 03/03/2024 documented as of this encounter Plan of Treatment Not on file documented as of this encounter Procedures Procedure Name Priority Date/Time Associated Diagnosis Comments US PELVIS COMPLETE WITH TRANSVAGINAL Routine 08/03/2022 11:52 AM CDT Urgency incontinence Sensation of pressure in [...] PM T: ??08/03/2022 1:05 PM Report ID: [id number] Reading Location: ??[id number] Procedure Note Gregory Ramirez MD - 08/03/2022 [...] Gregory Ramirez M.D. MJ: BRI Report ID: [id number] Reading Location: [place] [id number] IMPRESSION: 1. Essentially normal pelvic ultrasound. 2. Normal appearance on more limited view of the bladder. Patient was unable to completely void prior to the transvaginal portion. us Charito Tillman PAC IMG US ORDERABLES Final Result documented in this encounter Visit Diagnoses Diagnosis Urgency incontinence Urge incontinence Sensation of pressure in bladder area Other specified disorders of bladder Cramp and spasm documented in this encounter Care Teams Shelf Stocker Relationship Specialty Start Date End Date Charito Tillman, PAC [address] [place] [id number] PCP - General Physician [place] Folder 07/17/22 documented as of this encounter
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
--- OUTSIDE RECORDS SUMMARY | 2024-11-10 05:02 | XMS_ITS | Encounter Summary ---
Author Organization [facility] Care Team Providers Care Enterprise Sales Executive Name Role Phone Charito Tillman PAC Primary Care Pro vider Encounter Details Date Type Department Care Team (Latest Contact Info) Description 08/03/2022 Travel Social History Tobacco Use Types Packs/Day [...] on filedocumented in this encounter Care Teams Enterprise Sales Executive Relationship Specialty Start Date End Date Charito Tillman PAC [address] [place] [address] PCP - General Physician Grain Sampler 07/17/22 documented as of this encounter
--- OUTSIDE RECORDS SUMMARY | 2024-11-10 05:04 | XMS_ITS | Data Portability ---
Author Organization [facility] ANAJude Address [address] [facility] [place] [address] Care Team Providers Care Ergonomic Specialist Name Role Phone HILLSYLWIA Primary Care Provider [phone] ZOYA JEFFRIES Bookmaker'S Clerk Assessment No assessment recorded. Plan of Treatment Reminders Order Date Submit Date Provider Last Modified By Organization Details Last Modified Time Details Appointments None recorde d. Lab CT + NG + TV, DNA, urine/s wab 2020 021 [email or web address] [employer] [facility], [address], [place], [address], 15:34:13 bacteri al vaginos is + vaginit is panel, vaginal 2020 021 [employer] [facility], [address], [place], [address], 1 12:38:24 urinaly sis, dipstic k 2021 022 [email or web address] In-Office Order, Internal Use Only DO Not Attach Compendium DO Not Attach Compendium, Do Not Delete/merge, 13362 15:04:01 pap, LB + reflex HR HPV - brush, broom 2021 022 [employer] [facility], [address], [place], [address], 2 16:35:34 culture , urine 2022 [facility] [place] [employer] [facility], [address], [place], [address], 3 12:17:01 pap, IG + HPV mRNA E6/E7 + reflex HPV (16+18+ 45) - [place] alone, broom alone 2023 024 [employer] [facility], [address] [place], [address], 4 15:09:46 unliste d lab - sureswa b(R) advance d vaginit is plus, tma 2023 024 [email or web address] [employer] [facility], [address] [place], [address], 4 13:06:27 mycopla sma + ureapla sma DNA, unspeci fied specime n 2023 024 [employer] [facility], [address] [place], [address], 4 12:55:41 culture , urine 2023 024 [employer] [facility], [address] [place], [address], 4 12:01:31 Referral None recorde d. Procedures None recorde d. Surgeries None recorde d. Imaging None recorde d. Medication Orders metroni dazole 0.75 % (37.5 mg/5 gram) vaginal gel 2020 021 [facility]acy #[id number], [address] [place], [address], 4 15:40:13 Macrobi d 100 mg capsule 2021 022 [email or web address] [facility]/Pharmacy #[id number], [address] [place], [address], 4 17:08:16 Difluca n 150 mg tablet [address]/Pharmacy #[id number], [address] [place], [address], 4 17:08:18 Pyridiu m 200 mg tablet 2021 022 [facility]/Pharmacy #[id number], [address] [place], [address], 3 11:57:06 FE 1.5/30 (28) 1.5 mg-30 mcg (21)/75 mg (7) tablet [address]/Pharmacy #6833, [address] [place], [address], 4 14:34:49 Difluca n 150 mg tablet [address]/Pharmacy #6833, [address] [place], [address], 4 17:08:18 metroni dazole 0.75 % (37.5 mg/5 gram) vaginal gel 2022 023 [facility]/Pharmacy #[id number], [address] [place], [address], 4 15:40:13 Metroge l Vaginal 0.75 % (37.5 mg/5 gram) 2023 024 BRETT [facility]/Pharmacy #[id number], [address] [place], [address], 4 17:17:46 Patient TargetsNo targets recorded. Patient Instructions Encounter Date Encounter Id Patient Instructions Last Modified By Organization Details Last Modified Time 09/11/2023 [id number] A healthy lifestyle: care instructions [email or web address] Not available 09/12/2023 12:17:01 03/19/2024 [id number] A healthy lifestyle: care instructions [email or web address] Not available 03/19/2024 14:57:01 Quitting Tobacco: Care Instructions [email or web address] Not available 03/19/2024 14:57:01 abnormal Pap test: care instructions deldredsmith Not available 03/19/2024 14:57:01 colposcopy: before your procedure deldredsmith Not available 03/19/2024 14:57:01 learning about future and diabetes [email or web address] Not available 03/19/2024 14:57:01 learning about future when you are overweight deldredsmith Not available 03/19/2024 14:57:01 learning about planning for future deldredsmith Not available 03/19/2024 14:57:01 Reason for Referral None Reported. Results Created Date Observation Date Name Description Value Unit Range Abnormal Flag Note LastModifiedBy Organization Detail LastModifiedTime 11/05/2021 SURES WAB(R ), VAGIN OSIS/ VAGIN ITIS PLUS chlamydia trachomatis RNA, tma, urogenital NOT DETECT ED normal Not Available [employer] [facility] [address] [place], [address], 11/05/2021 13:43:14 11/05/2021 SURES WAB(R ), VAGIN OSIS/ VAGIN ITIS PLUS neisseria gonorrhoeae RNA, tma, urogenital NOT DETECT ED normal REFER ENCE RANGE : NOT DETEC DC Metho dolog y: Trans cript ion Media dc Ampli ficat ion (TMA) to detec t RNA. The samantha tical perfo rmanc e carmen cteri stics of this assay , when used to test SureP ath(T M) speci mens have been deter mined by [facility]. The modif icati ons have not been clear ed or appro issac by the FDA. This assay has been valid ated pursu ant to the CLIA regul ation s and is used for clini divya purpo ses. For addit ional infor raissa gallardo e refer to https ://ed ucati on.qu estdi [employer] tics. com/f aq/FA Q154 (This link is being provi ded for infor alan neri/ ivon webb l purpo ses only. ) Not Available [facility] [address], [address], 11/05/2021 13:43:14 11/05/2021 SURES WAB(R ), VAGIN OSIS/ VAGIN ITIS PLUS lactobacillu s species 6.8 log_( cells /mL) normal Not Available [facility] [address], [address], 11/05/2021 13:43:14 11/05/2021 SURES WAB(R ), VAGIN OSIS/ VAGIN ITIS PLUS atopobium vaginae NOT DETECT ED log_( cells /mL) normal Not Available [facility] [address], [address], 11/05/2021 13:43:14 11/05/2021 SURES WAB(R ), VAGIN OSIS/ VAGIN ITIS PLUS megasphaera species NOT DETECT ED log_( cells /mL) normal Not Available [facility] [address], [address], 11/05/2021 13:43:14 11/05/2021 SURES WAB(R ), VAGIN OSIS/ VAGIN ITIS PLUS gardnerella vaginalis NOT DETECT ED log_( cells /mL) normal Not Available [facility] [address], [address], 11/05/2021 13:43:14 11/05/2021 SURES WAB(R ), VAGIN OSIS/ VAGIN ITIS PLUS bv category: NOT SUPPOR TIVE normal REFER ENCE RANGE : BV Categ ory: NOT SUPPO RTIVE Metho dolog y: Real- Time PCR NOT SUPPO RTIVE OF BV: The patte rn of resul ts is not suppo rtive of a diagn osis of BV: 1) Prese nce of Lacto bacil christy spp., G. vagin allan level s less than 6.0 log cells /mL, and absen ce of A. vagin ae and Megas phaer a spp; or 2) Absen ce of all targe dc organ isms; or 3) Absen ce of Lacto bacil christy spp. plus G. vagin allan detec dc at level s less than 6.0 log cells /mL and absen ce of A. vagin ae and Megas phaer a spp. EQUIV OCAL FOR BV: The patte rn of [facility] ts is neith er suppo rtive nor not suppo rtive of a diagn osis of BV. The patie nt may be in trans ition into or out of BV: Prese nce of Lacto bacil christy spp. plus G. vagin allan (grea ter or equal to 6.0 log cells /mL) and/o r one of the other BV-as socia dc patho gens. SUPPO RTIVE OF BV: The patte rn of ana laura ts is suppo rtive of a diagn osis of BV: Absen ce of Lacto bacil christy spp. and prese nce of G. vagin allan great er than or equal to 6.0 log cells /mL and/o r one or both of the other BV-as socia dc patho gens. Paula ntrat ion for Lacto bacil li (L. acido philu s/cri spatu s, L. jense hal) are colle ctive ly repor dc under the term Lact obaci llus spp. , as these speci es are among the perox shahrzad produ cing Lacto bacil li thoug ht to be prote ctive again st bacte rial vagin osis. Atopo bium vagin ae, Megas phaer a spp., and Gardn erell a (grea ter than 6.0 log cells /mL) have been assoc iated with vagin osis when prese nt in the absen ce of perox idase produ cing Lacto bacil li. This test was devel oped and its samantha tical perfo rmanc e carmen cteri stics have been deter mined by [employer] [facility]. It has not been clear ed or appro issac by FDA. This assay has been valid ated pursu ant to the CLIA regul ation s and is used for clini divya purpo ses. Not Available [address], [address], 11/05/2021 13:43:14 11/05/2021 SURES WAB(R ), VAGIN OSIS/ VAGIN ITIS PLUS sureswab(R) trichomonas vaginalis RNA, ql, tma NOT DETECT ED normal REFER ENCE RANGE : NOT DETEC DC Metho dolog y: Trans cript ion Media dc Ampli ficat ion (TMA) For addit ional infor raissa gallardo e refer to http: //[facility] aidee echols.que stdia gnost ics.c om/fa q/Tri chomo nastm a (This link is being provi ded for infor alan nal/e ducat ional purpo ses only. ) Not Available [address], [address], 11/05/2021 13:43:14 11/05/2021 SURES WAB(R ), VAGIN OSIS/ VAGIN ITIS PLUS C. albicans, DNA NOT DETECT ED normal Not Available [address], [address], 11/05/2021 13:43:14 11/05/2021 SURES WAB(R ), VAGIN OSIS/ VAGIN ITIS PLUS C. glabrata, DNA NOT DETECT ED normal Not Available [facility] [address], [address], 11/05/2021 13:43:14 11/05/2021 SURES WAB(R ), VAGIN OSIS/ VAGIN ITIS PLUS C. tropicalis, DNA NOT DETECT ED normal Not Available [facility] [address] [address] [place], [address], 11/05/2021 13:43:14 11/05/2021 SURES WAB(R ), VAGIN OSIS/ VAGIN ITIS PLUS C. parapsilosis , DNA NOT DETECT ED normal REFER ENCE RANGE : NOT DETEC DC Metho dolog y: Real- Time PCR This test was devel oped and its samantha tical perfo rmanc e carmen cteri stics have been deter mined by [facility]. It has not been clear ed or appro issac by FDA. This assay has been valid ated pursu ant to the CLIA regul ation s and is used for clini divya purpo ses. Not Available [employer] [address] [address] [place], [address], 11/05/2021 13:43:14 11/02/2021 CLIEN T EDUCA TION TRACK ING client education tracking The Requi sitio n we recei issac did not inclu de a [facility] accou nt numbe r. To preve nt delay s in testi ng and proce ssing of your order s pleas e provi de the follo wing infor matio n with every order submi tted: [facility] acc[facility] nt numbe r and accou nt name Clien t addre ss Clien t phone and fax numbe r NPI numbe r of order ing physi faisal along with the physi faisal name. NO COLLE CTION DATE RECEI ISSAC. WE HAVE USED THE DATE THE SPECI MEN WAS RECEI ISSAC BY THIS LABOR ATORY THE COLLE CTION DATE. IF THIS IS INCOR RECT, PLEAS E CONTA CT CLIEN T SERVI YEVGENIY. PHONE NUMBE R: [phone] Not Available [employer] [address] [address] [address] , [place], [address], 11/02/2021 12:38:25 10/11/2022 THINP REP PAP RFL HR HPV clinical information: normal Hx of abnor mal Pap/B x withi n 3 years Not Available [employer] [address] [address] [place], [address], 10/11/2022 16:35:34 10/11/2022 THINP REP PAP RFL HR HPV LMP: normal 03965 022 Not Available [address] [address] [place], [address], 10/11/2022 16:35:34 10/11/2022 THINP REP PAP RFL HR HPV prev. Pap: normal NONE GIVEN Not Available [address] [address] [place], [address], 10/11/2022 16:35:34 10/11/2022 THINP REP PAP RFL HR HPV prev. BX: normal NONE GIVEN Not Available [address] [address] [place], [address], 10/11/2022 16:35:34 10/11/2022 THINP REP PAP RFL HR HPV source: normal Cervi x, Endoc ervix Not Available [address] [address] [place], [address], 10/11/2022 16:35:34 10/11/2022 THINP REP PAP RFL HR HPV statement of adequacy: normal Satis facto ry for evalu ation . Endoc ervic al/tr ansfo rmati on zone compo nent prese nt. Not Available [address] [address] [place], [address], 10/11/2022 16:35:34 10/11/2022 THINP REP PAP RFL HR HPV interpretati on/result: normal Negat carmen for intra epith elial lesio n or chelsea kincaid . Not Available [address] [address] [place], [address], 10/11/2022 16:35:34 10/11/2022 THINP REP PAP RFL HR HPV cytotechnolo gist: normal JAF, CT( CP) CT Scree camilla Locat ion: [address] [address] [place] [address] Not Available [address] [address] [place], [address], 10/11/2022 16:35:34 10/11/2022 THINP REP PAP RFL HR HPV review cytotechnolo gist: normal BES, CT( CP) CT scree camilla locat ion: [facility] [address] [address] [place] [address] Not Available [employer] [facility] [address] [place], [address], 10/11/2022 16:35:34 10/11/2022 THINP REP PAP RFL HR HPV comment EXPLA NATOR Y NOTE: The Pap is a scree camilla test for cervi divya cance r. It is not a diagn ostic test and is subje ct to false negat carmen and false posit carmen resul ts. It is most relia ble when a satis facto ry sampl e, regul tony obtai lazaro, is submi tted with relev ant clini divya findi ngs and histo ry, and when the Pap resul t is evalu ated along with histo brenda and curre nt clini divya infor matio n. NO COLLE CTION DATE RECEI ISSAC. WE HAVE USED THE DATE THE SPECI MEN WAS RECEI ISSAC BY THIS LABOR ATORY THE COLLE CTION DATE. IF THIS IS INCOR RECT, PLEAS E CONTA CT CLIEN T SERVI YEVGENIY. PHONE NUMBE R: [phone] Not Available [employer] [facility] [address] [address], [place], [address], 10/11/2022 16:35:34 09/12/2023 CLIEN T EDUCA TION TRACK ING client education tracking The Requi sitio n we recei issac did not inclu de a [facility] accou nt numbe r. To preve nt delay s in testi ng and proce ssing of your order s pleas e provi de the follo wing infor matio n with every order submi tted: [facility] accou nt numbe r and accou nt name Clien t addre ss Clien t phone and fax numbe r NPI numbe r of order ing physi faisal along with the physi faisal name. Not Available [employer] [facility] [address] [address], [place], [address], 09/12/2023 09:48:25 09/16/2023 CULTU RE, URINE , ROUTI NE culture, urine, routine SEE NOTE abnormal CULTU RE, URINE , ROUTI NE Micro Numbe r: [id number] Test Statu s: Final Speci men Sourc e: Urine Speci men Quali ty: Adequ ate Resul t: Great er than 100,0 00 CFU/m L of Klebs iella pneum oniae Great er than 100,0 00 CFU/m L of Esche jens a coli COMME NT: Due to suppl y chain limit s, the labor atory is tempo raril y perfo rming urine cultu res from FDA appro issac prese rvati ve tubes that have not been valid ated by [facility], as well as from refri gerat ed steri le urine colle ction cups that do not conta in a prese rvati ve. Cultu re of unpre serve d urine may produ ce false ly eleva dc bacte rial count s. K.pne umoni ae E.col i ----- ----- ----- - ----- ----- ----- - INT SWETA INT SWETA AMOX/ CLAVU LANAT E S <=2 S <=2 AMP/S ULBAC WARD S 4 S <=2 CEFAZ DONNA NR <=4 2 NR <=4 CEFEP ALEX S <=0.1 2 S <=0.1 2 CEFTA ZIDIM E S <=1 S <= 1 CEFTR IAXON E S <=0.2 5 S <=0.2 5 CIPRO FLOXA SEVERINO S <=0.0 6 S <=0.0 6 GENTA MICIN S <=1 S <=1 IMIPE NEM S <=0.2 5 S <=0.2 5 LEVOF LOXAC IN S <=0.1 2 S <=0.1 2 MEROP ENEM S <=0.2 5 S <=0.2 5 NITRO FURAN TOIN I 64 S <=16 PIP/T AZOBA CTAM S <=4 S <=4 TRIME THOPR IM/WOODS LFA S <=20 S <=20 S=Erika cepti ble I=Int ermed iate R=Res istan t * = Not Teste d NR = Not Repor dc NN = See Thera py Comme nts THERA PY COMME NTS Note 1: For infec tions other than uncom plica dc UTI cause d by E. coli, K. pneum oniae or P. mirab ilis: Cefaz donna is resis tant if SWETA > or = 8 mcg/m L. (Dist ingui shing susce ptibl e versu s inter media te for isola lacie with SWETA < or = 4 mcg/m L requi res addit ional testi ng.) Note 2: For uncom plica dc UTI cause d by E. coli, K. pneum oniae or P. mirab ilis: Cefaz donna is susce ptibl e if SWETA <32 mcg/m L and predi cts susce ptibl e to the oral agent s cefac jagruti, cefdi jitendra, cefpo doxim e, cefpr ozil, cefur oxime , cepha lexin and lorac arbef . NO COLLE CTION DATE RECEI ISSAC. WE HAVE USED THE DATE THE SPECI MEN WAS RECEI ISSAC BY THIS LABOR ATORY THE COLLE CTION DATE. IF THIS IS INCOR RECT, PLEAS E CONTA CT CLIEN T SERVI YEVGENIY. PHONE DOUGLAS R: [phone] Not Available [employer] [address] [address] [place], [address], 09/16/2023 07:44:35 03/24/2024 THINP REP TIS PAP AND HPV MRNA E6/E7 WITH REFLE X TO HPV 16,18 /45 clinical information: normal None given Not Available [employer] [address] [address] [place], [address], 03/24/2024 15:09:46 03/24/2024 THINP REP TIS PAP AND HPV MRNA E6/E7 WITH REFLE X TO HPV 16,18 /45 LMP: normal NONE GIVEN Not Available [employer] [facility] [address] [address] [place], [address], 03/24/2024 15:09:46 03/24/2024 THINP REP TIS PAP AND HPV MRNA E6/E7 WITH REFLE X TO HPV 16,18 /45 prev. Pap: normal NONE GIVEN Not Available [address] [address] [place], [address], 03/24/2024 15:09:46 03/24/2024 THINP REP TIS PAP AND HPV MRNA E6/E7 WITH REFLE X TO HPV 16,18 /45 prev. BX: normal NONE GIVEN Not Available [facility] [address] [address] [place], [address], 03/24/2024 15:09:46 03/24/2024 THINP REP TIS PAP AND HPV MRNA E6/E7 WITH REFLE X TO HPV 16,18 /45 source: normal Cervi x, Endoc ervix Not Available [facility] [address] [address] [place], [address], 03/24/2024 15:09:46 03/24/2024 THINP REP TIS PAP AND HPV MRNA E6/E7 WITH REFLE X TO HPV 16,18 /45 statement of adequacy: normal Satis facto ry for evalu ation . Endoc ervic al/tr ansfo rmati on zone compo nent prese nt. Age and/o r menst rual statu s not provi ded Not Available [address] [address] [place], [address], 03/24/2024 15:09:46 03/24/2024 THINP REP TIS PAP AND HPV MRNA E6/E7 WITH REFLE X TO HPV 16,18 /45 interpretati on/result: normal Cytol ogy Resul ts: Negat carmen for intra epith elial lesio n or malig codi . Not Available [facility] [address] [place], [address], 03/24/2024 15:09:46 03/24/2024 THINP REP TIS PAP AND HPV MRNA E6/E7 WITH REFLE X TO HPV 16,18 /45 infection: normal Funga l organ isms morph ologi omar consi stent with Elsa da spp. Not Available [address] [address] [place], [address], 03/24/2024 15:09:46 03/24/2024 THINP REP TIS PAP AND HPV MRNA E6/E7 WITH REFLE X TO HPV 16,18 /45 comment: normal This Pap test has been evalu ated with compu ter bayron dc techn ology . Not Available [address] [address] [place], [address], 03/24/2024 15:09:46 03/24/2024 THINP REP TIS PAP AND HPV MRNA E6/E7 WITH REFLE X TO HPV 16,18 /45 cytotechnolo gist: normal SXW, CT( CP) CT Scree camilla Locat ion: [facility] [place] [address] [place] [place] [address] Not Available [facility] [address] [address] [place], [address], 03/24/2024 15:09:46 03/24/2024 THINP REP TIS PAP AND HPV MRNA E6/E7 WITH REFLE X TO HPV 16,18 /45 comment EXPLA NATSHYANNE Y NOTE: The Pap is a scree camilla test for cervi divya cance r. It is not a diagn ostic test and is subje ct to false negat carmen and false posit carmen resul ts. It is most relia ble when a satis facto ry sampl e, regul tony obtai lazaro, is submi tted with relev ant clini divya findi ngs and histo ry, and when the Pap resul t is evalu ated along with histo brenda and curre nt clini divya infor matio n. Not Available [address] [address] [place], [address], 03/24/2024 15:09:46 03/24/2024 THINP REP TIS PAP AND HPV MRNA E6/E7 WITH REFLE X TO HPV 16,18 /45 HPV MRNA E6/E7 NOT DETECT ED not detect ed normal Metho dolog y: Trans cript ion-M ediat ed Ampli ficat ion This assay detec ts E6/E7 viral messe nger RNA (mRNA ) from 14 high- risk HPV types (16,1 8,31, 33,35 ,39,4 5,51, 52,56 ,58,5 9,66, 68). Cervi divya sourc es are requi red for HPV testi ng. If a vagin al sourc e from a patie nt who has had a total hyste recto my with remov al of cervi x was submi tted, pleas e conta ct the testi ng labor atory for alter nativ e testi ng optio ns. For addit ional infor raissa gallardo e refer to http: //[facility] aidee echols.que stdia gnost ics.c om/fa q/FAQ 129v1 (This link if provi ded for infor alan echols/ educa tracey l purpo ses only. ) NO COLLE CTION DATE RECEI ISSAC. WE HAVE USED THE DATE THE SPECI MEN WAS RECEI ISSAC BY THIS LABOR ATORY THE COLLE CTION DATE. IF THIS IS INCOR RECT, PLEAS E CONTA CT CLIEN T SERVI YEVGENIY. PHONE NUMBE R: [phone] Not Available [facility] [address] [place], [address], 03/24/2024 15:09:46 10/08/20 22 10/08/2022 urina lysis , dipst ick Leukocytes Negati ve Not Available In-Office Order Internal Use Only DO Not Attach Compendium DO Not Attach Compendium, Do Not Delete/merge, [id number] 10/08/2022 14:36:19 10/08/20 22 10/08/2022 urina lysis , dipst ick Nitrite negati ve Not Available In-Office Order Internal Use Only DO Not Attach Compendium DO Not Attach Compendium, Do Not Delete/merge, [id number] 10/08/2022 14:36:19 10/08/20 22 10/08/2022 urina lysis , dipst ick Urobilinogen .2 Not Available In-Of fice Order Internal Use Only DO Not Attach Compendium DO Not Attach Compendium, Do Not Delete/merge, [id number] 10/08/2022 14:36:19 10/08/20 22 10/08/2022 urina lysis , dipst ick Protein Negati ve Not Available In-Office Order Internal Use Only DO Not Attach Compendium DO Not Attach Compendium, Do Not Delete/merge, [id number] 10/08/2022 14:36:19 10/08/20 22 10/08/2022 urina lysis , dipst ick pH 6.0 Not Available In-Office Order Internal Use Only DO Not Attach Compendium DO Not Attach Compendium, Do Not Delete/merge, [id number] 10/08/2022 14:36:19 10/08/20 22 10/08/2022 urina lysis , dipst ick Blood Negati ve Not Available In-Office Order Internal Use Only DO Not Attach Compendium DO Not Attach Compendium, Do Not Delete/merge, [id number] 10/08/2022 14:36:19 10/08/20 22 10/08/2022 urina lysis , dipst ick Specific Ethel 1.025 Not Available In-Off ice Order Internal Use Only DO Not Attach Compendium DO Not Attach Compendium, Do Not Delete/merge, [id number] 10/08/2022 14:36:19 10/08/20 22 10/08/2022 urina lysis , dipst ick Ketone Negati ve Not Available In-Office Order Internal Use Only DO Not Attach Compendium DO Not Attach Compendium, Do Not Delete/merge, [id number] 10/08/2022 14:36:19 10/08/20 22 10/08/2022 urina lysis , dipst ick Bilirubin Negati ve Not Available In-Office Order Internal Use Only DO Not Attach Compendium DO Not Attach Compendium, Do Not Delete/merge, [id number] 10/08/2022 14:36:19 10/08/20 22 10/08/2022 urina lysis , dipst ick Glucose Negati ve Not Available In-Office Order Internal Use Only DO Not Attach Compendium DO Not Attach Compendium, Do Not Delete/merge, [id number] 10/08/2022 14:36:19 Result Notes None recorded. Problems Name Problem SNOMED Code Status Onset Date Resolution Date Notes Provider Name and Address Organization Details Recorded Time Irritable bowel syndrome 39801390 Active 2021 REG Blanchard, [facility] 2 15:24:17 Candidiasis of vagina 61610565 Active Zoya Jeffries [facility] Attn: Accounting ,[address] [place], [address] , [facility] SI 6 14:42:50 Pain in pelvis 28339421 Active Zoya Jeffries [facility] Attn: Accounting ,[address] [place], [address] , [facility] 6 14:40:05 Urinary tract infectious disease 78154702 Active Zoya Jeffries [facility] Attn: Accounting ,[address] [place], [address] , [facility] SI 6 14:40:05 Vaginal discharge 203918609 Active Zoya Jeffries [facility] Attn: Accounting ,[address] [place], [address] , [facility] 6 14:42:50 Problem Notes None recorded. Procedures Surgical History Date Name Laterality Status Provider Name and Address Organization Details Recorded Time 03/19/2024 Date of Last Pap Smear completed Zulema Chappell RN [facility] 03/24/2024 15:14:19 Other completed Nuris Rubio MA [facility] 05/02/2016 14:27:14 Imaging Results None recorded. Procedure Notes None recorded. Medical Equipment None Reported. Allergies Allergen ID Allergen Name Allergen Category Reaction Reaction Severity Criticality Documentation Date Start Date Code Code System Note Provider Name and Address Organization Details Recorded Time [id number] Toradol medicatio n Not available Not available Not available 09/11/2023 55002 RxNorm vomit s blood Almita simon, [facility] 3 16:52:22 Medications Name Sig Start Date Stop Date Status Note LastModified by Organization Details LastModified Time cyclobenzap rine 10 mg tablet TAKE 1 TABLET BY MOUTH TWICE A DAY NEEDED FOR 10 DAYS 09/11 completed Not Available Not Available Not Available buspirone 5 mg tablet TAKE 1 TABLET BY MOUTH TWICE A DAY 09/11 completed Not Available Not Available Not Available ketoconazol e 2 % shampoo APPLY TO WET HAIR, LEAVE ON FOR 5 MINUTES, THEN RINSE DAILY 07/17 completed Not Available Not Available Not Available Concerta 18 mg tablet,exte nded release TAKE 1 TABLET BY MOUTH EVERY DAY 07/17 completed Not Available Not Available Not Available azithromyci n 250 mg tablet 10/08 completed Not Available Not Available Not Available fluconazole 150 mg tablet Take 1 tablet by oral route as directed for 1 day. 10/18 completed Not Available Not Available Not Available sulfamethox azole 400 mg-trimetho prim 80 mg tablet TAKE 1 TABLET BY MOUTH EVERY 12 HOURS FOR 7 DAYS active Not Available Not Available No t Available ampicillin 500 mg capsule Take 1 capsule every 6 hours by oral route for 3 days. 04/21 completed Not Available Not Available Not Available ondansetron HCl 8 mg tablet TAKE 1 TABLET BY MOUTH EVERY 8 HOURS NEEDED FOR 2 DAYS 12/06 completed Not Available Not Available Not Available phenazopyri dine 200 mg tablet TAKE 1 TABLET 3 TIMES A DAY BY ORAL ROUTE. 02/07 completed Not Available Not Available Not Available ondansetron HCl 4 mg tablet TAKE 1 TABLET BY MOUTH 3 TIMES A DAY NEEDED NAUSEA 07/17 completed Not Available Not Available Not Available prednisone 20 mg tablet TAKE 2 TABLETS BY MOUTH DAILY FOR 5 DAYS 03/16 completed Not Available Not Available Not Available metronidazo le 500 mg tablet Take 1 tablet twice a day by oral route as directed for 7 days. 10/31 completed Not Available Not Available Not Available hydroxyzine HCl 50 mg tablet TAKE 1 TABLET BY MOUTH THREE TIMES A DAY NEEDED 07/17 completed Not Available Not Available Not Available tramadol 50 mg tablet TAKE 1 TABLET BY MOUTH EVERY 8 HOURS NEEDED FOR MILD OR MORE SEVERE PAIN. 03/19 completed Not Available Not Available Not Available amoxicillin 500 mg tablet TAKE ONE TABLET BY MOUTH THREE TIMES A DAY 10/31 completed Not Available Not Available Not Available citalopram 20 mg tablet TAKE 1 TABLET BY MOUTH EVERY DAY 07/17 completed Not Available Not Available Not Available Metrogel Vaginal 0.75 % (37.5 mg/5 gram) Insert 1 applicato rful every day by vaginal route at bedtime for 5 days. 2023 active Not Available Not Available Not Avai lable dicyclomine 20 mg tablet TAKE 1 TABLET BY MOUTH 4 TIMES DAILY NEEDED FOR CRAMPING PAIN IN THE ABDOMEN 12/06 completed Not Available Not Available Not Available benzonatate 100 mg capsule TAKE 1 CAPSULE BY MOUTH THREE TIMES A DAY NEEDED FOR COUGH FOR 5 DAYS 03/16 completed Not Available Not Available Not Available Cipro 500 mg tablet Take 1 tablet every 12 hours by oral route as directed for 3 days. 04/21 completed Not Available Not Available Not Available gabapentin 300 mg capsule TAKE 2 (TWO) CAPSULES BY MOUTH AT BEDTIME 10/18 completed Not Available Not Available Not Available omeprazole 20 mg capsule,del ayed release TAKE 1 CAPSULE BY MOUTH ONCE DAILY 12/06 completed Not Available Not Available Not Available ibuprofen 600 mg tablet TAKE 1 TABLET BY MOUTH EVERY 8 HOURS NEEDED FOR PAIN 09/11 completed Not Available Not Available Not Available methylpredn isolone 4 mg tablets in a dose pack USE DIRECTED WITH FOOD 09/11 completed Not Available Not Available Not Available albuterol sulfate HFA 90 mcg/actuati on aerosol inhaler INHALE 2 PUFFS BY MOUTH EVERY 4 TO 6 HOURS NEEDED FOR SHORTNESS OF BREATH OR WHEEZING 10/18 completed Not Available Not Available Not Available ondansetron 4 mg disintegrat ing tablet DISSOLVE ONE TABLET ON TONGUE EVERY SIX HOURS NEEDED FOR NAUSEA/VO MITING 12/06 completed Not Available Not Available Not Available fluticasone propionate 50 mcg/actuati on nasal spray,suspe nsion SPRAY 2 SPRAYS INTO EACH NOSTRIL TWICE A DAY 10/18 completed Not Available Not Available Not Available amoxicillin 875 mg-potassiu m clavulanate 125 mg tablet TAKE 1 TABLET BY MOUTH EVERY 12 HOURS FOR 10 DAYS 03/16 completed Not Available Not Available Not Available Concerta 27 mg tablet,exte nded release TAKE 1 TABLET BY MOUTH EVERY DAY 09/11 completed Not Available Not Available Not Available escitalopra m 10 mg tablet TAKE 1 TABLET BY MOUTH EVERY DAY 07/17 completed Not Available Not Available Not Available norgestimat e 0.18 mg/0.215 mg/0.25 mg-ethinyl estradiol 25 mcg tablet TAKE 1 TABLET EVERY DAY BY ORAL ROUTE. 04/21 completed Not Available Not Available Not Available Sprintec (28) 0.25 mg-35 mcg tablet Take 1 tablet every day by oral route as directed. 05/20 completed Not Available Not Available Not Available nitrofurant oin monohydrate /macrocryst als 100 mg capsule TAKE 1 CAPSULE BY MOUTH EVERY 12 HOURS FOR 7 DAYS 10/18 completed Not Available Not Available Not Available tizanidine 4 mg capsule TAKE 1 CAPSULE BY MOUTH 3 TIMES A DAY. 10/18 completed Not Available Not Available Not Available Allergy Relief-D (cetirizine ) 5 mg-120 mg tablet,exte nded release TAKE 1 TABLET BY MOUTH EVERY 12 HOURS NEEDED NASAL CONGESTIO N 07/17 completed Not Available Not Available Not Available GaviLyte-G 236 gram-22.74 gram-6.74 gram-5.86 gram oral solution TAKE 4,000 ML BY MOUTH ONCE FOR 1 DOSE 12/06 completed Not Available Not Available Not Available Mucus DM Max ER 60 mg-1,200 mg tablet,exte nded release TAKE 1 TABLET BY MOUTH EVERY 12 HOURS 07/17 completed Not Available Not Available Not Available Fiordaliza Fe 1.5/30 (28) 1.5 mg-30 mcg (21)/75 mg (7) tablet TAKE 1 TABLET BY MOUTH EVERY DAY active Not Available Not Available No t Available Vitals Date Recorded Body height Body mass index (BMI) Body weight Systolic blood pressure Diastolic blood pressure Provider Name and Address Organization Details Last Updated DateTime 10/31/2021 154.94 cm 36.3 kg/m2 10005.74 g 122 mm[Hg] 76 mm[Hg] REG [place] [facility] 14:45:35 Date Recorded Body height Body mass index (BMI) Body weight Systolic blood pressure Diastolic blood pressure Provider Name and Address Organization Details Last Updated DateTime 10/08/2022 154.94 cm 36.4 kg/m2 78408.54 g 110 mm[Hg] 62 mm[Hg] Elizabeth Chacko MA [facility] 2 14:35:46 Date Recorded Body height Body mass index (BMI) Body weight Heart rate Respiratory rate Systolic blood pressure Diastolic blood pressure Provider Name and Address Organization Details Last Updated DateTime 3 154.94 cm 39.1 kg/m2 58809.2 2 g 76 /min 16 /min 129 mm[Hg] 85 mm[Hg] Almita Jung [facility] 3 16:49:14 Date Recorded Body height Body mass index (BMI) Body weight Heart rate Respiratory rate Systolic blood pressure Diastolic blood pressure Provider Name and Address Organization Details Last Updated DateTime 4 154.94 cm 37.2 kg/m2 38549.7 g 65 /min 16 /min 106 mm[Hg] 75 mm[Hg] Almita Jung [facility] 4 14:40:50 Date Recorded Body height Provider Name an d Address Organization Details Last Updated DateTime 10/18/2024 154.94 cm Almita Jung [facility] 2023 17:08:07 Social History Question Answer Notes LastModified by Organizat ion Details LastModified Time Tobacco Smoking Status Current Every Day [facility]24 14:37:10 In The 14 Days Before Symptom Onset, Have You Had Close Contact With A Laboratory-confirm ed COVID-19 While That Case Was Ill? No [email or web address] Information n ot available 09/11/2023 In The 14 Days Before Symptom Onset, Have You Had Close Contact With A Person Who Is Under Investigation For COVID-19 While That Person Was Ill? No Information not available 09/11/2023 Have You Been To An Area Known To Be High Risk For COVID-19? No [email or web address] Information not available 09/11/2023 What Was The Date Of Your Most Recent Tobacco Screening? 10/18/2024 [email or web address] Information not available 10/18/2024 What Is Your Relationship Status? [email or web address] Information not available 03/19/2024 Are You Sexually Active? Yes Information not available 03/19/2024 Do You Have Smoke And Carbon Monoxide Detectors In Your Home? Yes Information not available 09/11/2023 Are You Passively Exposed To Smoke? No [email or web address] Information no t available 09/11/2023 Do You Use Any Illicit Or Recreational Drugs? Yes THC [email or web address] Information not available 03/19/2024 Has Tobacco Cessation Counseling Been Provided? Yes Information not available 03/19/2024 On What Date Was Tobacco Cessation Counseling Provided? 10/18/2024 Information not available 10/18/2024 Do You Or Have You Ever Used Any Other Forms Of Tobacco Or Nicotine? Yes [email or web address] Information not available 03/19/2024 Sex: Female Functional Status None recorded. Mental Status None recorded. Family History Nothing Reported. Medical History Condition Response Other N High Blood Pressure N Breast Cancer N Thyroid Problems N Kidney or Bladder Problems N Lung Disease N GI Problems N Depression N Blood Clots N Acne N Breast Problem N Eating Disorder N Anemia N Anesthesia Complications N Headaches/Migraines N Ovarian Cancer N Diabetes N Anxiety Disorder N Muscle, Joint, or Bone Problems Y Blood Transfusions N Seizures/Epilepsy N Polyps N Infertility N Acid Reflux (GERD) N Cancer N Abuse/Domestic Violence N Asthma N Endometriosis N High Cholesterol N Hepatitis N Liver Disease N Heart Disease N Pre-Eclampsia N Osteoporosis N Gynecological History Statement/Question Response Flow Heavy Date of LMP 09/25/2024 Sexually Active? Y Menses Monthly Y STIs/STDs N Date of Last Pap Smear 03/19/2024 Sexual Problems? N Duration of Flow (days) 7 Current Control Method Seeking Pre gnancy Age at Menarche 11 LMP Definite Obstetrics History GPAL:G 0 P 0 0 0 0 Past Encounters Encounter ID Performer Location Encounter Start Date Encounter Closed Date Diagnosis/Indication Diagnosis SNOMED-CT Code Diagnosis ICD10 Code Diagnosis Note [id number] GILLIAN Rodriguez-ANNIKA Whitmore ([facility] 122) [address] [place] [address] 05/02/2016 14:14:51 05/02/2016 14:53:20 Venereal disease screening 420248406 [facility] 915759068 Z30.9 [id number] DARINEL Israel ([facility] 122) [address] [place] [address] 05/09/2016 09:48:47 05/09/2016 10:34:51 Candidiasis of vagina 66719123 B37.3 Venereal d isease screening 657519937 Z11.3 [id number] DARINEL Israel Womens ([facility] 122) [address] [facility] [place] [address] 05/17/2016 17:03:00 05/17/2016 17:16:45 Pain in pelvis 85278839 R10.2 Venereal d isease screening 403438135 Z11.3 [id number] Zoya Jeffries [facility] Gil Womens ([facility] 122) [address] [facility] [place] [address] 06/14/2016 14:04:38 06/14/2016 14:43:37 Venereal disease screening 955396110 Z11.3 Candidiasis of vagina 71 439788 B37.3 Vaginal discharge 598271 006 N89.8 [id number] [facility] Women[facility] ([place] [address]) [address] [facility] [place] [address] 09/10/2016 16:28:21 09/11/2016 09:07:33 Venereal disease screening 000014487 Z11.3 Contraception care 42809 5005 Z30.40 Anxiety 83577018 F41.9 Candidiasis of vagina 72 215065 B37.3 [id number] [facility] ([place] [address]) [address] [facility] [place] [address] 12/05/2016 16:10:31 12/06/2016 10:34:42 Pain in pelvis 12186920 R10.2 [id number] Zoya Jeffries [facility] Gil [facility]om[facility] ([place] [address]) [address] [facility] [place] [address] 05/20/2017 14:14:13 05/20/2017 15:10:57 Vaginal discharge 247119508 N89.8 [facility] 51870785 N 94.0 [id number] DARINEL Alba 14 OB [address] [facility] [place] [address] 04/21/2018 11:26:04 04/23/2018 14:51:37 Contraception care 158369381 Z30.40 Vaginal discharge 906436 006 N89.8 Venereal d isease screening 744194704 Z11.3 [id number] MINDY Rodriguez OB [address] [facility] [place] [address] 07/10/2018 11:31:23 07/23/2018 09:46:06 Vaginal discharge 126434796 N89.8 [id number] MINDY Rodriguez OB [address] [facility] [place] [address] 11/06/2018 11:23:26 11/09/2018 11:05:33 At increased risk of urinary tract infection 637501038 Z91.89 Possible 45274 4004 Z32.00 Venereal d isease screening 224380527 Z11.3 [id number] MINDY Rodriguez OB [address] [facility] [place] [address] 04/09/2019 14:00:45 04/13/2019 08:59:36 Vaginal discharge 595850939 N89.8 Nuswab done and sent to lab. Counseled on STD prevention and condom use. Counseled on yeast and BV prevention . Will follow up pending lab results. Possible 96085 4004 Z32.00 [id number] MINDY Rodriguez OB [address] [facility] [place] [address] 08/30/2019 14:20:09 08/31/2019 09:11:26 Routine gynecologic examination done 6229939054 9101 Z01.419 Venereal d isease screening 407006193 Z11.3 1. STD testing done per pt request 2. Educated pt on STD prevention , Condom use 3. Pt verbalized understand ing 4. Will follow up pending lab results, as needed or at next annual Pain of breast 80488071 N64.4 Pt educated on fibrocysti c breast changes and how to decrease the appearance of lumps- by limiting caffeine and nicotine. Sbe exam discussed with pt. Ultrasound order given, pt verbalized understand ing. Will follow up pending results. Contracept ion care management 154681823 Z30.9 1. Reviewed all forms of control with patient including risk factors and side effects. 2. Counseled on STD transmissi on and prevention , condom use and prevention . 3. Pt would like to continue with OCP. Educated on correct use and side effects. Will send rx to pharmacy. 4. Follow up for med check in 12 months, sooner if needed. [id number] [facility] OB [address] [facility] [place] [address] 12/06/2020 14:14:08 12/07/2020 12:50:02 Gynecologic examination 95506213 Z01.419 1. Counseled regarding prevention of STD's , condom use and prevention . 2. Counseled regarding contracept carmen options, risk factors and side effects. 3. Advised avoidance of tobacco, alcohol, and drugs . 4. Counseled regarding folic acid supplement ation, calcium needs and prevention of osteoporos is . 5. BSE reviewed and recommende d. 6. Follow up in one year or sooner if needed. Contracept ion care management 998454870 Z30.9 1. Reviewed all forms of control with patient including risk factors and side effects. 2. Counseled on STD transmissi on and prevention , condom use and prevention . 3. Pt would like to continue with OCP. Educated on correct use and side effects. Will send rx to pharmacy. 4. Follow up for med check in 12 months, sooner if needed. [id number] [facility] [address] [place] [address] [place] [address] 02/13/2021 11:56:42 02/14/2021 11:45:44 At increased risk of urinary tract infection 993918604 Z91.89 1. Will send meds out for UTI 2. Pt instructed to increase fluids, decrease soda, sugary beverages and caffeinate d beverages. 3. To call office if symptoms worsen or do not improve with treatment. [id number] [facility] Gil 14 OB [address] [facility] [place] [address] 10/31/2021 14:39:18 10/31/2021 21:41:33 Vaginal discharge 332674409 N89.8 Nuswab done and sent to lab. Counseled on STD prevention and condom use. Counseled on yeast and BV prevention . Will follow up pending lab results. [id number] Zoya Jeffries [facility] 14 OB [address] [facility] [address] [place], [place] [address] [address] 10/08/2022 14:16:54 10/09/2022 07:55:36 At increased risk of urinary tract infection 746445718 Z91.89 1. Will send meds out for UTI 2. Pt instructed to increase fluids, decrease soda, sugary beverages and caffeinate d beverages. 3. To call office if symptoms worsen or do not improve with treatment. Gynecologi c examination 37167296 Z01.419 1. Counseled regarding prevention of STD's , condom use and prevention . 2. Counseled regarding contracept carmen options, risk factors and side effects. 3. Advised avoidance of tobacco, alcohol, and drugs . 4. Counseled regarding folic acid supplement ation, calcium needs and prevention of osteoporos is . 5. BSE reviewed and recommende d. 6. Follow up in one year or sooner if needed. Contracept ion care management 314180677 Z30.9 1. Reviewed all forms of control with patient including risk factors and side effects. 2. Counseled on STD transmissi on and prevention , condom use and prevention . 3. Pt would like to continue with OCP. Educated on correct use and side effects. Will send rx to pharmacy. 4. Follow up for med check in 12 months, sooner if needed. [id number] Zoya Jeffries [facility] [address] [facility] [place] [address] 09/11/2023 16:41:50 09/16/2023 09:11:43 Obesity 010836459 E66.9 Contracept ion care management 787300277 Z30.9 1. Reviewed all forms of control with patient including risk factors and side effects. 2. Counseled on STD transmissi on and prevention , condom use and prevention . 3. Pt would like to continue with OCP. Educated on correct use and side effects. Will send rx to pharmacy. 4. Follow up for med check in 12 months, sooner if needed. At [facility] risk of urinary tract infection 317220660 Z91.89 1. Will send meds out for UTI 2. Pt instructed to increase fluids, decrease soda, sugary beverages and caffeinate d beverages. 3. To call office if symptoms worsen or do not improve with treatment. Vaginal discharge 998948 006 N89.8 Nuswab done and sent to lab. Counseled on STD prevention and condom use. Counseled on yeast and BV prevention . Will follow up pending lab results. [id number] Zoya Jeffries, [facility] Gil 14 OB [address] [facility] [address] [place] [address] 03/19/2024 14:18:08 03/23/2024 10:25:06 Gynecologic examination 32893429 Z01.419 1. Counseled regarding prevention of STD's , condom use and prevention . 2. Counseled regarding contracept carmen options, risk factors and side effects. 3. Advised avoidance of tobacco, alcohol, and drugs . 4. Counseled regarding folic acid supplement ation, calcium needs and prevention of osteoporos is . 5. BSE reviewed and recommende d. 6. Follow up in one year or sooner if needed. Abnormal c ervical Papanicolaou smear 691125951 R87.619 Obesity 345879098 E66.9 Discussed diet and weight loss. Discussed making healthier food choices and increasing exercise. Discussed going to a technical designer. Smoker 56074197 F17.200 smoking cessation informatio n give. pt understand s the risk factors associated with smoking including heart disease, blood clots, stroke and increase risks for cancers. Trying to conceive 75609 9009 Z31.9 Pt educated on using tracking apps for ovulation as well as using ovulation kits otc. Pt educated on best time during month to ttc also the use of vitamins. [id number] Almita Sharma 14 OB [address] [facility] [address] [place] [address] 10/18/2024 16:58:37 10/19/2024 08:28:58 Vaginal odor 550212803 N89.8 Nuswab done and sent to lab. Counseled on STD prevention and condom use. Counseled on yeast and BV prevention . Will follow up pending lab results. Pain in pelvis 72893893 R10.2 1. Will monitor as dip was negative. 2. Pt instructed to increase fluids, decrease soda, sugary beverages and caffeinate d beverages. 3. To call office if symptoms worsen or do not improve changes. Health Concerns Section Related Observation LastModified by Organization Detai ls LastModified Time None Recorded Concern Status LastModified by Organization Details LastModified Time None Recorded Advance Directives Directive None Recorded Payers Encounter Date Sequence Insurance Name Policy Number Policy Murguia Covered Member ID Murguia Member ID Guarantor Name 10/31/2021 1 [facility] [id number] Jacky Chen [id number] BILLY Chen 10/08/2022 1 [facility] [id number] Jacky Chen [id number] CERVANTES Peg Chen 09/11/2023 1 [facility] [id number] Jacky Chen [id number] CERVANTES Peg Chen 03/19/2024 1 [facility] [id number] Jacky Chen [id number] CERVANTES Peg Chen 10/18/2024 1 [facility] [id number] Jacky Chen [id number] Peg Chen Notes Date Note Type Note Provider Name and Address Organization Details Recorded Time 10/31/2021 text/html Vaginal DischargeReported bypatient.Location:vag jerel Quality:white; increased quantity Severity:moderate Duration:symptoms lasting over 2 weeks Onset/Timing:daily Context:current contraception:; menstruating Modifying Factors:nothing gives relief Associated Symptoms:no vaginal burning; no swelling/redness; no fever/chills; no diarrhea; no abdominal pain; no pelvic pain; no vaginal pain; no pain during urination; no pain during intercourse; no vaginal lump; no genital lesion; no sexually transmitted disease; no fever;vaginal itching doing well on ocp, states vaginal discharge and odor on and off since september GILLIAN Rodriguez-BC Attn: Accounting,[address] [facility], [place], [address], [place] [facility] 10/31/2021 15:04:33 10/08/2022 text/html Annual GYNReport ed bypatient.History:no gynecologic complaints Menstrual cycle:Normal menses Urinary symptoms:No hematuria; No incontinence Vulva:No genital lesion Vagina:Normal vaginal discharge Breast:No breast pain; No breast lump; No nipple discharge Current Contraception:Satisfie d with current contraception; Oral contraceptives Sexual complaints:No sexual complaints; No pain during intercourse; Normal libido Menopausal Symptoms:No menopausal symptoms; Normal vaginal lubrication Psychological symptoms:No depression; No anxiety; No PMDD Preventive measures:Encourage self breast examination; Encourage regular exercise; Encourage no tobacco use; Encourage regular mammograms starting age 40; Followed with Q3 year pap smear and high risk HPV typing 22 yo fe here for annual exam-would like refill on ocp-, hx ibs, frequent uti- seeing pelvic floor physical therapist and vulvo specialist- concerned about uti symptoms, feels like she is going to have one, urgency increasing, would like refill on antibiotic Zoya Mervin, [employer] DEAN-BC Attn: Accounting,[address] [place], [address], [facility] 10/08/2022 15:02:55 09/11/2023 text/html Annual GYNReport ed bypatient.Menstrual cycle:Normal menses Urinary symptoms:No hematuria; No incontinence Vulva:No genital lesion Vagina:Foul-smelling;W kevin Breast:No breast pain; No breast lump; No nipple discharge Current Contraception:Satisfie d with current contraception; Oral contraceptives Sexual complaints:No sexual complaints; No pain during intercourse; Normal libido Menopausal Symptoms:No menopausal symptoms; Normal vaginal lubrication Psychological symptoms:No depression; No anxiety; No PMDD Preventive measures:Encourage self breast examination; Encourage regular exercise; Encourage no tobacco use; Encourage regular mammograms starting age 40; Followed with Q3 year pap smear and high risk HPV typing 23 yo fe here for vaginal discharge, on cycle and is heavy, pt declines exam -, hx ibs, frequent uti- seeing pelvic floor physical therapist and vulvo specialist- concerned about uti symptoms, feels like she is going to have one, urgency increasing, would like refill on antibiotic Zoya Jeffries, [employer] [facility]AN[employer] Attn: Accounting,[address] [place], [address], [facility] 09/12/2023 14:55:41 03/19/2024 text/html Annual GYNReport ed bypatient.History:no gynecologic complaints; planning in the near future Menstrual cycle:Normal menses Urinary symptoms:No hematuria; No incontinence Vulva:No genital lesion Vagina:Normal vaginal discharge Breast:No breast pain; No breast lump; No nipple discharge Current Contraception: control not practiced Sexual complaints:No sexual complaints; No pain during intercourse; Normal libido Menopausal Symptoms:No menopausal symptoms; Normal vaginal lubrication Psychological symptoms:No depression; No anxiety; No PMDD Preventive measures:Encourage self breast examination; Encourage regular exercise; Encourage no tobacco use; Encourage regular mammograms starting age 40; Followed with Q3 year pap smear and high risk HPV typing 23 yo fe here for annual wwe -, hx ibs, frequent uti- seeing pelvic floor physical therapist and vulvo specialist GILLIAN Rodriguez-ANNIKA Attn: Accounting,[address] [place], [address], [facility] 03/19/2024 14:57:26 10/18/2024 text/html Annual GYNReport ed bypatient.History:no gynecologic complaints; planning in the near future Menstrual cycle:Normal menses Urinary symptoms:No hematuria; No incontinence Vulva:No genital lesion Vagina:Normal vaginal discharge Breast:No breast pain; No breast lump; No nipple discharge Current Contraception: control not practiced Sexual complaints:No sexual complaints; No pain during intercourse; Normal libido Menopausal Symptoms:No menopausal symptoms; Normal vaginal lubrication Psychological symptoms:No depression; No anxiety; No PMDD Preventive measures:Encourage self breast examination; Encourage regular exercise; Encourage no tobacco use; Encourage regular mammograms starting age 40; Followed with Q3 year pap smear and high risk HPV typing 24 yo fe here for vaginal odor and pelvic pain -, hx ibs, frequent uti- seeing pelvic floor physical therapist and vulvo specialist Almita simon, [place] - [facility] 10/18/2024 17:37:11 OBGyn Episode No OBEpisode recorded.
--- OUTSIDE RECORDS SUMMARY | 2024-11-10 05:04 | XMS_ITS | Continuity of Care Document ---
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 Plan of Treatment Reminders Order Date Submit Date Provider Last Modified By Organization Details Last Modified Time Details Appointments None recorded. Lab unlisted lab - sureswab(R) advanced vaginitis plus, tma 2023 [email or web address], [address] [place], [address], 13:06:27 mycoplasma + ureaplasma DNA, unspecified specimen 2023 [facility], [address] [place], [address], 4 12:55:41 culture, urine 2023 [facility], [address] [place], [address], 12:01:31 Referral None recorded. Procedures None recorded. Surgeries None recorded. Imaging None recorded. Medication Orders Metrogel Vaginal 0.75 % (37.5 mg/5 gram) 2023 [id number], [address], [place], [address], 12/16/202 4 17:17:46 Patient TargetsNo targets recorded. Patient InstructionsNo instructions recorded. Reason for Referral None Reported. Problems Name Problem SNOMED Code Status Onset Date Resolution Date Notes Provider Name and Address Organization Details Recorded Time Irritable bowel syndrome 49220736 Active 2021 REG Blanchard, [facility] 2 15:24:17 Candidiasis of vagina 38870554 Active GILLIAN Rodriguez- Attn: Accounting ,[address] [place], [place], [address] [place] [address] , [facility] 14:42:50 Pain in pelvis 28724588 Active DANIELLE RodriguezFORMERLY [facility] Attn: Accounting ,[address] [place], [place], [address] [place] [address] , [facility] 14:40:05 Urinary tract infectious disease 35052637 Active GILLIAN Rodriguez- Attn: Accounting ,[address] [place], [place], [address] [place] [address] , [facility] 14:40:05 Vaginal discharge 790673245 Active GILLIAN Rodriguez- Attn: Accounting ,[address] [place], [place], [address] [place] [address] , [facility] 14:42:50 Problem Notes None recorded. Procedures Surgical History Date Name Laterality Status Provider Name and Address Organization Details Recorded Time 03/19/2024 Date of Last Pap Smear completed Zulema Chappell RN [facility] 03/24/2024 15:14:19 Other completed Nuris Rubio MA [facility] 05/02/2016 14:27:14 Imaging Results None recorded. Procedure Notes None recorded. Medical Equipment None Reported. Allergies Allergen ID Allergen Name Allergen Category Reaction Reaction Severity Criticality Documentation Date Start Date Code Code System Note Provider Name and Address Organization Details Recorded Time 909786 Toradol medicatio n Not available Not available Not available 09/11/2023 75150 RxNorm vomit s blood Almita simon, [facility] 3 16:52:22 Medications Name Sig Start Date [...] t Available Vitals Date Recorded Body height Provider Name an d Address Organization Details Last Updated DateTime 10/18/2024 154.94 cm Almita Jung [facility] 2023 17:08:07 Social History Question Answer Notes LastModified by Organizat ion Details LastModified Time Tobacco Smoking Status Current Every Day Smoker Almita Jung null, [place] - [facility] 03/19/2024 14:37:10 In The 14 Days Before Symptom Onset, Have You Had Close Contact With A Laboratory-confirm ed COVID-19 While That Case Was Ill? No [email or web address] Information n ot available 09/11/2023 In The 14 Days Before Symptom Onset, Have You Had Close Contact With A Person Who Is Under Investigation For COVID-19 While That Person Was Ill? No [email or web address] Information not available 09/11/2023 Have You Been To An Area Known To Be High Risk For COVID-19? No [email or web address] Information not available 09/11/2023 What Was The Date Of Your Most Recent Tobacco Screening? 10/18/2024 [email or web address] Information not available 10/18/2024 What Is Your Relationship Status? [email or web address] Information not available 03/19/2024 Are You Sexually Active? Yes [email or web address] Information not available 03/19/2024 Do You Have Smoke And Carbon Monoxide Detectors In Your Home? Yes Information not available 09/11/2023 Are You Passively Exposed To Smoke? No [email or web address] Information no t available 09/11/2023 Do You Use Any Illicit Or Recreational Drugs? Yes THC [email or web address] Information not available 03/19/2024 Has Tobacco Cessation Counseling Been Provided? Yes [email or web address] Information not available 03/19/2024 On What Date Was Tobacco Cessation Counseling Provided? 10/18/2024 [email or web address] Information not available 10/18/2024 Do You Or Have You Ever Used Any Other Forms Of Tobacco Or Nicotine? Yes [email or web address] Information not available 03/19/2024 Sex: Female Functional Status None recorded. Mental Status None recorded. Family History Nothing Reported. Medical History Condition Response Other N High Blood Pressure N Breast Cancer N Thyroid Problems N Kidney or Bladder Problems N Lung Disease N GI Problems N Depression N Blood Clots N Acne N Eating Disorder N Breast Problem N Anemia N Anesthesia Complications N Headaches/Migraines [...] SNOMED-CT Code Diagnosis ICD10 Code Diagnosis Note [id number] Almita Sharma [address] [place] [address] 10/18/2024 16:58:37 10/19/2024 08:28:58 Vaginal odor 105091285 N89.8 Nuswab done and sent to lab. Counseled on STD prevention and condom use. Counseled on yeast and BV prevention . Will follow up pending lab results. Pain in pelvis 82353635 R10.2 1. Will monitor as dip was negative. 2. Pt instructed to increase fluids, decrease soda, sugary beverages and caffeinate d beverages. 3. To call office if symptoms worsen or do not improve changes. Health Concerns Section Related Observation LastModified by Organization Detai ls LastModified Time None Recorded Concern Status LastModified by Organization Details LastModified Time None Recorded Payers Encounter Date Sequence Insurance Name Policy Number Policy Murguia Covered Member ID Murguia Member ID Guarantor Name 10/18/2024 1 [facility] [id number] Jacky Chen [id number] [employer] Peg Chen Notes Date Note Type Note Provider Name and Address Organization Details Recorded Time 10/18/2024 text/html Annual GYNReport ed bypatient.History: no gynecologic complaints; planning in the near future Menstrual cycle:Normal menses Urinary symptoms:No hematuria; No incontinence Vulva:No genital lesion Vagina:Normal vaginal discharge Breast:No breast pain; No breast lump; No nipple discharge Current Contraception:Yefri h control not practiced Sexual complaints:No sexual complaints; [...] floor physical therapist and vulvo specialist Almita Jung [facility] [place] - [facility] 10/18/2024 17:37:11 OBGyn Episode No OBEpisode recorded.
== END 2024-11-03 10:41 | disposition home or self-care (01) ==
PROVIDERS: Emergency Provider Nurse Practitioner; PCP Physician Assistant
DX: J01.80 Other acute sinusitis (principal); B96.89 Other specified bacterial agents as the cause of diseases classified elsewhere; H66.92 Otitis media, unspecified, left ear; F41.9 Anxiety disorder, unspecified; K58.9 Irritable bowel syndrome, unspecified; K21.9 Gastro-esophageal reflux disease without esophagitis; F17.290 Nicotine dependence, other tobacco product, uncomplicated; F12.90 Cannabis use, unspecified, uncomplicated
CPT/HCPCS: 99213; G0463